=== PATIENT | female | born 1990 | race Caucasian/White ===

== ENCOUNTER 2023-08-31 16:39 | Emergency (ER) | payer OTHER, SELFPAY ==
[2023-08-31 16:43] VITALS: BP 138/71; PULSE 79; TEMP 36.9; O2SAT 99; BMI 22.3
--- NOTE | 2023-08-31 16:53 | ED.GENADUL1 ---
HPI HPI - General Adult General Chief complaint: Upper Respiratory Infection Stated complaint: WHITE SPOTS ON THROAT, TONGUE SWOLLEN Time Seen by Provider: 08/31/23 16:48 Source: patient Mode of arrival: walk-in Limitations: no limitations History of Present Illness HPI narrative: Patient is a 33-year-old female presents to the emergency department for 3-day history of mild sore throat associated with some soreness in the tongue and white spots in the back of the throat. She has had no fevers, vomiting. She is able to swallow food and fluids without difficulty. She reports painful swallowing. She has no other significant upper respiratory symptoms. No medications taken prior to arrival. She is unsure of a possibility of . Related Data Previous Rx's ?Medication ?Instructions ?Recorded cefdinir 300 mg capsule 300 mg PO BID 10 days #20 caps 08/31/23 ondansetron 4 mg disintegrating 4 mg PO Q6H PRN nausea and 08/31/23 tablet vomiting #12 tabs Allergies Allergy/AdvReac Type Severity Reaction Status Date / Time No Known Drug Allergies Allergy Verified 08/31/23 16:48 Opioid HPI Opioid Management Most Recent Opioid Data: No Data to Display Review of Systems ROS Constitutional Denies: fever or chills Ears, nose, mouth, and throat Reports: throat pain and difficulty swallowing; Denies: nasal congestion Cardiovascular Denies: chest pain Respiratory Denies: shortness of breath or cough Gastrointestinal Denies: nausea or vomiting Integumentary/Breast Denies: rash Hematologic/Lymphatic Denies: easy bruising or easy bleeding Exam Narrative Exam Narrative: Gen.: Awake, alert, in no distress Head: Normocephalic, atraumatic ENT: Moist mucous membranes, no tonsillar edema noted with exudate of the pharynx and pharyngeal erythema noted. Uvula midline. Clear speech. No trismus or drooling. Airway widely open and patent. No redness or swelling under the tongue. Bilateral TMs are bulging Respiratory: No respiratory distress, lungs clear bilaterally Cardio: Regular rate and rhythm Extremities: Moves extremities equally Psych: Normal mood and affect Neuro: No focal neuro deficit Skin: Warm, dry, intact Constitutional Vital Signs, click to edit/add: Last Vital Signs Temp 98.5 F 08/31/23 16:43 Pulse 79 08/31/23 16:43 Resp 18 08/31/23 16:43 BP 138/71 08/31/23 16:43 Pulse Ox 99 08/31/23 16:43 O2 Del Method Room Air 08/31/23 16:43 Course Vital Signs Vital signs: Vital Signs Temperature 98.5 F 08/31/23 16:43 Pulse Rate 79 08/31/23 16:43 Respiratory Rate 18 08/31/23 16:43 Blood Pressure 138/71 08/31/23 16:43 Pulse Oximetry 99 08/31/23 16:43 Oxygen Delivery Method Room Air 08/31/23 16:43 Temperature 98.5 F 08/31/23 16:43 Pulse Rate 79 08/31/23 16:43 Respiratory Rate 18 08/31/23 16:43 Blood Pressure 138/71 08/31/23 16:43 Pulse Oximetry 99 08/31/23 16:43 Oxygen Delivery Method Room Air 08/31/23 16:43 Medical Decision Making MDM Narrative Medical decision making narrative: test is positive, strep screen is negative. Patient treated with antibiotics as we will avoid steroids in her early . Follow-up with gynecology and primary care and return to the ER if symptoms change or worsen SUPERVISED APC VISIT, PHYSICIAN ATTESTATION: Based on the medical record the care appears appropriate. ? Medical Records Medical records reviewed: Yes I reviewed the patient's medical records Lab Data Lab results reviewed: Yes I reviewed the patient's lab results Labs: Lab Results 08/31/23 08/31/23 Range/Units 16:47 16:55 Urine HCG, Qual Positive A (NEGATIVE) Streptococcus Screen Negative Discharge Plan Discharge Stand Alone Forms: Portal Instructions Chief Complaint: Upper Respiratory Infection Clinical Impression: Pharyngitis, Patient Disposition: Home, Self-Care Time of Disposition Decision: 17:34 Condition: Good Prescriptions / Home Meds: New ondansetron 4 mg tablet,disintegrating 4 mg PO Q6H PRN (Reason: nausea and vomiting) Qty: 12 0RF cefdinir 300 mg capsule 300 mg PO BID 10 Days Qty: 20 0RF Print Language: Occitan Instructions: (ED), Pharyngitis (ED) Referrals: Physician,Non-Staff, MD [Primary Care Provider] - 1 week
[2023-08-31 17:12] LABS: HCG Qualitative Urine* POSITIVE (NEGATIVE); Internal Control Within Normal Limits
[2023-08-31 17:33] LABS: Internal Control Within Normal Limits; Strep A Antigen Screen Negative
== END 2023-08-31 17:41 | disposition home or self-care (01) ==
PROVIDERS: Physician Assistant; Emergency Provider Student in an Organized Health Care Education/Training Program
DX: O99.519 Diseases of the respiratory system complicating pregnancy, unspecified trimester (principal); J02.9 Acute pharyngitis, unspecified; Z3A.00 Weeks of gestation of pregnancy not specified
CPT/HCPCS: 84703; 87070; 87880; 99283

== ENCOUNTER 2023-10-01 13:48 | Outpatient (OUT) | payer OTHER, SELFPAY ==
--- NOTE | 2023-10-01 13:50 | US_ITS ---
The [address] [address] Patient Name: LIZZ ABBOTT MRN: [id number] date: 1990 Sex: F Assigned Patient Location: [facility] Current Patient Location: [facility] Accession/Order Number: [id number] Exam Date: 10/01/2023 13:50 Report Date: 10/01/2023 15:06 At the request of: SLIM DUPREE Procedure: US OB >= 14 weeks Fetus EXAMINATION: US OB >= 14 weeks Fetus HISTORY: MISSED MENSES COMPARISON: No relevant comparison available. FINDINGS: Heart Rate: 145 bpm Amniotic Fluid Volume: Subjectively normal Number: 1 Position: Variable Cervix: 3.7 cm in length and closed. BIOMETRY: BPD: 2.35 cm; ; 52.40 % HC: 9.48 cm; ; 66.50 % AC: 7.95 cm; ; 82.20 % FL: 1.24 cm; ; 47.50 % EFW: 90.61 g; 65.80 % FL/AC: 15.60 FL/BPD: 52.77 HC/AC: 1.19 GESTATIONAL AGE: Age by EDC: 13 weeks 4 days SHYLA by EDC: 04/03/2024 Age by US: 14 weeks 0 days SHYLA by US: 03/31/2024 US/US OB >= 14 weeks Fetus IMPRESSION: 1. Single live intrauterine with growth detailed above. Electronically authenticated by: AYESHA GONZALES Date: 10/01/2023 15:06
== END 2023-10-01 13:49 | disposition home or self-care (01) ==
LOC: NOMS 13:48
PROVIDERS: Visit Provider Obstetrics & Gynecology
DX: N92.6 Irregular menstruation, unspecified (principal); Z3A.14 14 weeks gestation of pregnancy
CPT/HCPCS: 76815

== ENCOUNTER 2023-10-26 19:20 | Outpatient (REF) | payer OTHER, SELFPAY ==
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
[2023-10-30 21:12] LABS: Age Gdln ACOG Testing Note (.); HPV Aptima Positive (Negative); HPV Genotype 16 Negative (Negative); HPV Genotype 18,45 Positive (Negative); IGP, Aptima HPV, rfx 16/18,45 Note (.)
== END 2023-10-26 19:21 | disposition home or self-care (01) ==
LOC: LAB 19:20
PROVIDERS: Visit Provider Obstetrics & Gynecology
DX: Z01.419 Encounter for gynecological examination (general) (routine) without abnormal findings (principal)
CPT/HCPCS: 87624; 88175

== ENCOUNTER 2023-11-16 10:20 | Outpatient (OUT) | payer OTHER, SELFPAY ==
--- NOTE | 2023-11-16 10:24 | US_ITS ---
[address] [address] Patient Name: LIZZ ABBOTT MRN: [id number] date: 1990 Sex: F Assigned Patient Location: [facility] Current Patient Location: [facility] Accession/Order Number: [id number] Exam Date: 11/16/2023 10:28 Report Date: 11/16/2023 11:22 At the request of: SLIM DUPREE Procedure: US OB cervical length EXAMINATION: US OB anatomy, US OB cervical length HISTORY: anatomic survey COMPARISON: Ultrasound OB 14 weeks 10/01/2023 TECHNIQUE: Transabdominal sonographic examination was performed for obstetrical and evaluation. FINDINGS: Number: 1 Heart Rate: 128 bpm H.B. /min Amniotic Fluid Volume: Subjectively normal Placental Location: Posterior with lower margin 2.6 cm from os. Cervix Length: 5.2 cm, closed. ANATOMY: Normal Structures -cerebellum, choroid plexus, cisterna magna, lateral cerebral ventricles, orbits, midline falx, hard palate, four-chamber heart, RVOT, LVOT, stomach, kidneys, bladder, umbilical cord insertion into abdomen, three-vessel cord, cervical spine, thoracic spine, lumbar spine, sacral spine, right upper extremity, left upper extremity, right lower extremity, left lower extremity. SUBOPTIMALLY SEEN: None ABNORMALITIES: None BIOMETRY: BPD: 4.74 cm; 20 weeks 2 days; 57.90 % HC: 17.99 cm; 20 weeks 3 days; 55.10 % AC: 16.79 cm; 21 weeks 6 days; 89.90 % FL: 3.05 cm; 19 weeks 3 days; 19.20 % EFW:397.56 g; 75.60 % FL/AC: 18.17 FL/BPD: 64.35 HC/AC: 1.07 GESTATIONAL AGE: Age by EDC: 20 weeks 1 day Age by current US: 20 weeks 4 days SHYLA by current US: 2024-03-31 SHYLA by EDC: 2024-04-03 US/US OB cervical length IMPRESSION: 1. Single live intrauterine with growth detailed above. 2. Posterior low-lying placenta. Electronically authenticated by: AYESHA GONZALES Date: 11/16/2023 11:22
--- NOTE | 2023-11-16 10:24 | US_ITS ---
[address] [address] Patient Name: LIZZ ABBOTT MRN: [id number] date: 1990 Sex: F Assigned Patient Location: [facility] Current Patient Location: [facility] Accession/Order Number: [id number] Exam Date: 11/16/2023 10:28 Report Date: 11/16/2023 11:22 At the request of: SLIM DUPREE Procedure: US OB anatomy EXAMINATION: US OB anatomy, US OB cervical length HISTORY: anatomic survey COMPARISON: Ultrasound OB 14 weeks 10/01/2023 TECHNIQUE: Transabdominal sonographic examination was performed for obstetrical and evaluation. FINDINGS: Number: 1 Heart Rate: 128 bpm H.B. /min Amniotic Fluid Volume: Subjectively normal Placental Location: Posterior with lower margin 2.6 cm from os. Cervix Length: 5.2 cm, closed. ANATOMY: Normal Structures -cerebellum, choroid plexus, cisterna magna, lateral cerebral ventricles, orbits, midline falx, hard palate, four-chamber heart, RVOT, LVOT, stomach, kidneys, bladder, umbilical cord insertion into abdomen, three-vessel cord, cervical spine, thoracic spine, lumbar spine, sacral spine, right upper extremity, left upper extremity, right lower extremity, left lower extremity. SUBOPTIMALLY SEEN: None ABNORMALITIES: None BIOMETRY: BPD: 4.74 cm; 20 weeks 2 days; 57.90 % HC: 17.99 cm; 20 weeks 3 days; 55.10 % AC: 16.79 cm; 21 weeks 6 days; 89.90 % FL: 3.05 cm; 19 weeks 3 days; 19.20 % EFW:397.56 g; 75.60 % FL/AC: 18.17 FL/BPD: 64.35 HC/AC: 1.07 GESTATIONAL AGE: Age by EDC: 20 weeks 1 day Age by current US: 20 weeks 4 days SHYLA by current US: 2024-03-31 SHYLA by EDC: 2024-04-03 US/US OB anatomy IMPRESSION: 1. Single live intrauterine with growth detailed above. 2. Posterior low-lying placenta. Electronically authenticated by: AYESHA GONZALES Date: 11/16/2023 11:22
--- OUTSIDE RECORDS SUMMARY | 2023-11-16 10:35 | XMS_ITS | CCD ---
Author Organization [facility] Care Team Providers Care Oncology Nurse Name Role Phone REQUEST, NONE LISTED Primary Care Unavailable VICTORIANO GR Consulting Unavailable KARAALIYAHKILEANA Admitting Unavailable KARAALIYAHKILEANA Attending Unavailable ILEANA LOVE Consulting Unavailable VINAY EMMANUEL Consulting Unavailable ADAM HARRIS Consulting Unavailable AGUBOSIDAVINA Duong Consulting Unavailable SLIM DUPREE Attending Unavailable Problems Problem Classification Problem Date Documented [...] ABO Rh Typing A Rh Positive Normal [facility] Comment on above: Performed By: #### A [facility] #### [facility] [address], [place] [address] Bartolo Escobedo CARDIAC JUDITH ADMITon 019 CK [Catalytic activity/Vol] 38 U/L Normal 30-135 [facility] Comment on above: Performed By: #### C MP, CMADM, PREGQNT #### [facility] [address] [place] [id number] Bartolo Fanny CK.MB [Mass/Vol] ng/mL Normal <=2.37 [facility] Comment on above: Performed By: #### C MP, CMADM, PREGQNT #### [facility] [address] [place], [place] [id number] Bartolo Fortuneen INR Coag (Bld) [Relative time] SEE BELOW Normal [facility] Comment on above: Result Comment: <0.0 34 ng/ml NEGATIVE 0.034-0.119 INDETERMINATE 0.120 AMI CUT OFF Performed By: #### C MP, CMADM, PREGQNT #### [facility] [address] [place] [address] Bartolo Fanny MADELINE 16.0 ng/mL Normal <=61.5 [facility] Comment on above: Performed By: #### C MP, CMADM, PREGQNT #### [facility] [address] [place] [address] Bartolo Fanny TROP <0.017 Normal <=0.034 [facility] Comment on above: Performed By: #### C MP, CMADM, PREGQNT #### [facility] [address] [place] [address] Bartolo Fanny CBC AUTO DIFFon 11-01-2018 Basophils (Bld) [#/Vol] 0.0 103/ul Normal 0.0-0.1 [facility] Comment on above: Performed By: #### C BC #### [facility] [address] [place] [address] Bartolo Fanny Basophils/100 WBC (Bld) 0.2 % Normal 0.2-2.0 [facility] Comment on above: Performed By: #### C BC #### [facility] [address] [place] [address] Bartolo Fanny Eosinophils (Bld) [#/Vol] 0.0 103/ul Normal 0.0-0.7 [facility] Comment on above: Performed By: #### C BC #### [facility] [address] [place], [place] [id number] Bartolo Fanny Eosinophils/100 WBC (Bld) 0.2 % Critically low 0.9-7.0 [facility] Comment on above: Performed By: #### C BC #### [facility] [address] [place], [place] [id number] Bartolo Fanny Erythrocyte distribution width (RBC) [Ratio] 12.7 % Normal 11.0-15.0 [facility] Comment on above: Performed By: #### C BC #### [facility] [address] [place], [place] [id number] Bartolo Fanny Hematocrit (Bld) [Volume fraction] 33.1 % Critically low 36.0-48.0 [facility] Comment on above: Performed By: #### C BC #### [facility] [address] [place], [place] [id number] Bartolo Fanny Hemoglobin (Bld) [Mass/Vol] 11.3 g/dL Critically low 12.0-16.0 [facility] Comment on above: Performed By: #### C BC #### [facility] [address] [place], [place] [address] Bartolo Fanny IG # 0.03 10e3/ul Normal 0.00-0.03 [facility] Comment on above: Performed By: #### C BC #### [facility] [address] [place], [place] [id number] Bartolo Fanny IG % 0.2 % Normal 0.0-0.5 [facility] Comment on above: Performed By: #### C BC #### [facility] [address] [place], [place] [phone] Bartolo Fanny Lymphocytes (Bld) [#/Vol] 1.8 103/ul Normal 1.2-3.8 [facility] Comment on above: Performed By: #### C BC #### [facility] [address] [place], [place] [address] Bartolo Fanny Lymphocytes/100 WBC (Bld) 13.9 % Critically low 20.5-60.0 [facility] Comment on above: Performed By: #### C BC #### [facility] [address] [place], [place] [address] Bartolo Escobedo MANUAL DIFF REQ NO Normal The [facility] Comment on above: Performed By: #### C BC #### [facility] [address] [place], [place] [address] Bartolo Fanny MCH (RBC) [Entitic mass] 29.7 pg Normal 26.7-34.0 [facility] Comment on above: Performed By: #### C BC #### [facility] [address] [id number] Bartolotanvir Escobedo MCHC (RBC) [Mass/Vol] 34.1 g/dL Normal 29.9-35.2 [facility] Comment on above: Performed By: #### C BC #### [facility] [address] [address] Bartolotanvir Fortuneen MCV (RBC) [Entitic vol] 87.1 fL Normal 81.0-99.0 [facility] Comment on above: Performed By: #### C BC #### [facility] [address] [address] [place]loo Fanny Monocytes (Bld) [#/Vol] 0.4 103/ul Normal 0.3-0.8 [facility] Comment on above: Performed By: #### C BC #### [facility] [address] [address] Bartolo Fanny Monocytes/100 WBC (Bld) 3.1 % Normal 1.7-12.0 [facility] Comment on above: Performed By: #### C BC #### [facility] [address] [address] Bartolo Fanny Neutrophils (Bld) [#/Vol] 10.8 103/ul Critically high 1.4-6.5 [facility] Comment on above: Performed By: #### C BC #### [facility] [address] [address] Bartolo Fanny Neutrophils/100 WBC (Bld) 82.4 % Critically high 43.0-75.0 [facility] Comment on above: Performed By: #### C BC #### [facility] [address] [place], [place] [address] Bartolo Escobedo Platelet mean volume (Bld) [Entitic vol] 10.4 fL Normal 9.5-13.5 [facility] Comment on above: Performed By: #### C BC #### [facility] [address] [place], [place] [address] Bartolo Escobedo Platelets (Bld) [#/Vol] 255 103/ul Normal 150-450 [facility] Comment on above: Performed By: #### C BC #### [facility] [address] [place], [place] [address] Bartolotanvir Escobedo RBC (Bld) [#/Vol] 3.80 106/ul Critically low 4.20-5.40 [facility] Comment on above: Performed By: #### C BC #### [facility] [address] [place] [address] Bartolotanvir Escobedo WBC (Bld) [#/Vol] 13.1 103/ul Critically high 4.0-11.0 [facility] Comment on above: Performed By: #### C BC #### [facility] [address] [place] [address] C-SPINE WO CONon 11-02-19 CT C-SPINE WO CON Patient: LIZZ ABBOTT Exam Date: 11/01/2018 : 1990 Gender:F Ordering : RASHEED IQBAL Admission #: [id number] Family : DR VICTORIANO GR D.O. Order #: [id number] CLICK HERE TO VIEW EXAM RADIOLOGY REPORT [...] M.D. on 11/01/2018 at 15:02 Normal [facility] CT HEAD WO CONon 11-01-2018 CT HEAD WO CON Patient: LIZZ ABBOTT Exam Date: 11/01/2018 : 1990 Gender:F Ordering : RASHEED IQBAL Admission #: [id number] Family : DR VICTORIANO GR D.O. Order #: [id number] CLICK HERE TO VIEW EXAM RADIOLOGY REPORT [...] M.D. on 11/01/2018 at 14:59 Normal [facility] PREG QUANT HCGon 11-01-2018 HCG QUANT 1500.00 mIU/mL Normal The [facility] [place] Comment on above: Performed By: #### C ROBERTA, CMADM, PREGQNT #### [facility] [address] [place] [address] Bartolo Escobedo HCG RANGE SEE BELOW Normal [facility] Comment on above: Result Comment: 5-50 0-1 WEEK 40-300 1-2 WEEKS 100-1,000 2-3 WEEKS 500-6,000 3-4 WEEKS 5,000-200,000 1-2 MONTHS 10,000-100,000 2-3 MONTHS 3,000-50,000 2ND TRIMESTER 1,000-50,000 3RD TRIMESTER Performed By: #### C ROBERTA, CMADM, PREGQNT #### [facility] [address] [id number] Bartolo Fortuneen PROF 14(COMP METB)on 019 Albumin [Mass/Vol] 3.5 g/dL Normal 3.5-5.0 [facility] Comment on above: Performed By: #### C MP, CMADM, PREGQNT #### [facility] [address] [address] Bartolo Fanny Albumin/Globulin [Mass ratio] 0.9 {ratio} Normal [facility] Comment on above: Performed By: #### C MP, CMADM, PREGQNT #### [facility] [address] [address] Bartolo Fanny ALP [Catalytic activity/Vol] 43 U/L Normal 38-126 [facility] Comment on above: Performed By: #### C MP, CMADM, PREGQNT #### [facility] [address] [place] [address] Bartolo Fanny ALT [Catalytic activity/Vol] 12 U/L Normal 9-52 [facility] Comment on above: Performed By: #### C MP, CMADM, PREGQNT #### [facility] [address] [address] Bartolo Fanny Anion gap [Moles/Vol] 13.8 mmol/L Normal [facility] Comment on above: Performed By: #### C MP, CMADM, PREGQNT #### [facility] [address] [address] Bartolo Fanny AST [Catalytic activity/Vol] 12 U/L Critically low 14-36 [facility] Comment on above: Performed By: #### C MP, CMADM, PREGQNT #### [facility] [address] [address] Bartolo Fanny Bilirubin Ql (U) 0.7 mg/dL Normal 0.2-1.3 [facility] Comment on above: Performed By: #### C MP, CMADM, PREGQNT #### [facility] [address] [address] Bartolo Fanny Calcium [Mass/Vol] 8.7 mg/dL Normal 8.4-10.2 [facility] Comment on above: Performed By: #### C MP, CMADM, PREGQNT #### [facility] [address] [place] [address] Bartolo Fanny Chloride [Moles/Vol] 104 mmol/L Normal 98-107 [facility] Comment on above: Performed By: #### C MP, CMADM, PREGQNT #### [facility] [address] [place] [address] Bartolo Fanny CO2 [Moles/Vol] 22.7 mmol/L Normal 22.0-30.0 [facility] Comment on above: Performed By: #### C MP, CMADM, PREGQNT #### [facility] [address] [place] [address] Bartolo Fanny Creatinine [Mass/Vol] 0.67 mg/dL Normal 0.52-1.04 [facility] Comment on above: Performed By: #### C MP, CMADM, PREGQNT #### [facility] [address] [place] [address] Bartolo Fanny EGFR-AF SIERRA LEONEAN >60 Normal >=60 [facility] Comment on above: Performed By: #### C MP, CMADM, PREGQNT #### [facility] [address] [place] [address] Bartolo Fanny EGFR-NON AF SIERRA LEONEAN >60 Normal >=60 [facility] Comment on above: Performed By: #### C MP, CMADM, PREGQNT #### [facility] [address] [place] [address] Bartolo Fanny Globulin (S) [Mass/Vol] 4.0 g/dL Normal [facility] Comment on above: Performed By: #### C MP, CMADM, PREGQNT #### [facility] [address] [place] [address] Bartolo Fanny Glucose [Mass/Vol] 113 mg/dL Critically high 74-106 [facility] Comment on above: Performed By: #### C MP, CMADM, PREGQNT #### [facility] [address] [place] [address] Bartolo Fanny Potassium [Moles/Vol] 3.5 mmol/L Normal 3.4-5.0 [facility] Comment on above: Performed By: #### C JANAY GRANADOS, PREGQNT #### [facility] [address] [place] [address] Bartolo Fanny Protein [Mass/Vol] 7.5 g/dL Normal 6.1-8.2 [facility] Comment on above: Performed By: #### C ROBERTA, CMADM, PREGQNT #### [facility] [address] [place] [address] Bartolo Fanny Sodium [Moles/Vol] 137 mmol/L Normal 137-145 [facility] Comment on above: Performed By: #### C ROBERTA, CMADM, PREGQNT #### [facility] [address] [place] [address] Bartolo Fanny Urea nitrogen [Mass/Vol] 10.0 mg/dL Normal 7.0-17.0 [facility] Comment on above: Performed By: #### C MP, CMADM, PREGQNT #### [facility] [address] [address] Bartolo Fanny Urea nitrogen/Creatinine [Mass ratio] 14.9 mg/mg Normal [facility] Comment on above: Performed By: #### C ROBERTA, CMADM, PREGQNT #### [facility] [address] [address] Bartolo Fanny PROTIMEon 11-01-2018 INR Coag (PPP) [Relative time] 1.02 {INR} Normal [facility] Comment on above: Performed By: #### P T, PTT #### [facility] [address] [phone] Bartolo Fanny PT Coag (PPP) [Time] PLEASE NOTE: NORMAL RANGE CHANGE 11-03-2013 DUE TO REAGENT LOT CHANGE Normal [facility] Comment on above: Performed By: #### P T, PTT #### [facility] [address] [id number] Bartolo Fanny PT Coag (PPP) [Time] 10.6 s Normal 9.0-11.6 [facility] Comment on above: Performed By: #### P T, PTT #### [facility] [address] [place], [place] [address] Bartolo Escobedo PT Coag (PPP) [Time] SEE BELOW Normal [facility] Comment on above: Result Comment: AKIL RED INR: 2.0 - 3.0 CONDITIONS NOT LISTED BELOW 2.5 - 3.5 FOR PROSTHETIC HEART VALVE REPLACEMENT 2.5 - 3.5 RECURRENT THROMBOSIS Performed By: #### P T, PTT #### [facility] [address] [place], [place] [address] Bartolo Escobedo PTTon 11-01-2018 aPTT Coag (Bld) [Time] PLEASE NOTE: NORMAL RANGE CHANGE 01-10-2015 DUE TO REAGENT LOT CHANGE Normal [facility] Comment on above: Performed By: #### P T, PTT #### [facility] [address] [place], [place] [address] Bartolo Escobedo aPTT Coag (Bld) [Time] 21.6 s Critically low 22.3-36.2 [facility] Comment on above: Performed By: #### P T, PTT #### [facility] [address] [place], [place] [address] Bartolo Fanny TYPE AND SCREENon 11-01-2018 TYPE AND SCREEN Negative Normal [facility] Comment on above: Performed By: #### P T, PTT #### [facility] [address] [place], [place] [address] Bartolo Fanny US PREG <14 WKSon 11-01-2018 US PREG <14 WKS Patient: LIZZ ABBOTT Exam Date: 11/01/2018 : 1990 Gender:F Ordering : RASHEED IQBAL Admission #: [id number] Family : DR VICTORIANO GR D.O. Order #: [id number] CLICK HERE TO VIEW EXAM RADIOLOGY REPORT PROCEDURE: ULTRASOUND < 14 WEEKS COMPARISON: None. INDICATIONS: Bleeding from vagina TECHNIQUE: Transabdominal sonographic examination for obstetrical and evaluation. FINDINGS: GESTATIONAL SAC: POLE: Absent. YOLK SAC: Absent. CARDIAC ACTIVITY: Absent. UTERUS: Thickened hyperechoic endometrium. Irregular fluid collection within the cervix. OVARIES: Right: Normal. Left: Normal. CUL-DE-SAC: Normal. OTHER: None. AGE BY LMP: 12 weeks, 1 day SYHLA BY LMP: May 15, 2019 CONCLUSION: 1. Thickened endometrium with irregular fluid collection within the cervix, likely representing spontaneous . Dictated by: Vinay Emmanuel M.D. on 11/01/2018 at 15:42 Approved by: Vinay Emmanuel M.D. on 11/01/2018 at 15:43 Normal [facility] Encounters Encounter Date Encounter Type Care Provider Facility Start: 10-26-2023 End: 10-26-2023 ambulatory SLIM LEIA Not Available Start: 10-01-2023 End: 10-01-2023 ambulatory SLIM LEIA Not Available Start: 11-01-2018 End: 11-01-2018 Patient encounter procedure NONE LISTED REQUEST Facility: Payers Date Payer Category Payer Unknown [id number] 1990 Unknown [id number] 1990 Unknown [id number] 1990 Unknown [id number] 1957 Self-pay [id number] Summary Purpose Family History No Family History Records FoundNo Family History Records Found Advance Directives No Advanced Directives Records FoundNo Advanced Directives Records Found Additional Source Comments INFORMATION SOURCE (unrecogn ized section and content) DATE CREATED AUTHOR 11/15/2018 [facility] DATE CREATED AUTHOR AUTHOR'S ORGANIZ ATION 10/27/2023 [facility] EPIC FOR RECORDS PERTAINING TO PATIENTS WHO ARE [...] BE BASED ON THE PRIMARY CLINICAL RECORDS. [employer] [facility]. provides no warranty or guarantee of the accuracy or completeness of information in this document.
== END 2023-11-16 10:21 | disposition home or self-care (01) ==
LOC: NOMS 10:21
PROVIDERS: Visit Provider Obstetrics & Gynecology
DX: O44.42 Low lying placenta NOS or without hemorrhage, second trimester (principal); Z36.89 Encounter for other specified antenatal screening; Z3A.20 20 weeks gestation of pregnancy
CPT/HCPCS: 76805; 76817

== ENCOUNTER 2023-11-23 12:53 | Outpatient (OUT) | payer OTHER, SELFPAY ==
--- OUTSIDE RECORDS SUMMARY | 2023-11-23 12:58 | XMS_ITS | CCD ---
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 Role Phone REQUEST, NONE LISTED Primary [...] ABO Rh Typing A Rh Positive Normal [facility] Comment on above: Performed By: #### A [facility] #### [facility] [address], [place] [address] Bartolo Escobedo CARDIAC JUDITH ADMITon 019 CK [Catalytic activity/Vol] 38 U/L Normal 30-135 [facility] Comment on above: Performed By: #### C MP, CMADM, PREGQNT #### [facility] [address] [place] [id number] Bartolo Fanny CK.MB [Mass/Vol] ng/mL Normal <=2.37 [facility] Comment on above: Performed By: #### C MP, CMADM, PREGQNT #### [facility] [address] [place], [place] [address] Bartolo Fortuneen INR Coag (Bld) [Relative time] SEE BELOW Normal [facility] Comment on above: Result Comment: <0.0 34 ng/ml NEGATIVE 0.034-0.119 INDETERMINATE 0.120 AMI CUT OFF Performed By: #### C MP, CMADM, PREGQNT #### [facility] [address] [place] [address] Bartolo Fanny MADELINE 16.0 ng/mL Normal <=61.5 [facility] Comment on above: Performed By: #### C MP, CMADM, PREGQNT #### [facility] [address] [place] [address] Bartolo Fanny TROP <0.017 Normal <=0.034 [facility] Comment on above: Performed By: #### C MP, CMADM, PREGQNT #### [facility] [address] [place] [address] Bartolo Fanny CBC AUTO DIFFon 11-01-2018 Basophils (Bld) [#/Vol] 0.0 103/ul Normal 0.0-0.1 [facility] Comment on above: Performed By: #### C BC #### [facility] [address] [place] [address] Bartolo Fanny Basophils/100 WBC (Bld) 0.2 % Normal 0.2-2.0 [facility] Comment on above: Performed By: #### C BC #### [facility] [address] [place] [address] Bartolo Fanny Eosinophils (Bld) [#/Vol] 0.0 103/ul Normal 0.0-0.7 [facility] Comment on above: Performed By: #### C BC #### [facility] [address] [place], [place] [address] Bartolo Fanny Eosinophils/100 WBC (Bld) 0.2 % Critically low 0.9-7.0 [facility] Comment on above: Performed By: #### C BC #### [facility] [address] [place], [place] [address] Bartolo Fanny Erythrocyte distribution width (RBC) [Ratio] 12.7 % Normal 11.0-15.0 [facility] Comment on above: Performed By: #### C BC #### [facility] [address] [place], [place] [address] Bartolo Fanny Hematocrit (Bld) [Volume fraction] 33.1 % Critically low 36.0-48.0 [facility] Comment on above: Performed By: #### C BC #### [facility] [address] [place], [place] [address] Bratolo Fanny Hemoglobin (Bld) [Mass/Vol] 11.3 g/dL Critically low 12.0-16.0 [facility] Comment on above: Performed By: #### C BC #### [facility] [address] [place], [place] [address] Bartolo Fanny IG # 0.03 10e3/ul Normal 0.00-0.03 [facility] Comment on above: Performed By: #### C BC #### [facility] [address] [place], [place] [address] Bartolo Fanny IG % 0.2 % Normal 0.0-0.5 [facility] Comment on above: Performed By: #### C BC #### [facility] [address] [place], [place] [address] Bartolo Fanny Lymphocytes (Bld) [#/Vol] 1.8 103/ul Normal 1.2-3.8 [facility] Comment on above: Performed By: #### C BC #### [facility] [address] [place], [place] [address] Bartolo Fanny Lymphocytes/100 WBC (Bld) 13.9 % Critically low 20.5-60.0 [facility] Comment on above: Performed By: #### C BC #### [facility] [address] [place], [place] [address] Bartolo Escoebdo MANUAL DIFF REQ NO Normal [facility] Comment on above: Performed By: #### C BC #### [facility] [address] [place], [place] [address] Bratolo Fanny MCH (RBC) [Entitic mass] 29.7 pg Normal 26.7-34.0 [facility] Comment on above: Performed By: #### C BC #### [facility] [address] [id number] Bartolotanvir Escobedo MCHC (RBC) [Mass/Vol] 34.1 g/dL Normal 29.9-35.2 [facility] Comment on above: Performed By: #### C BC #### [facility] [address] [id number] Bartolotanvir Fortuneen MCV (RBC) [Entitic vol] 87.1 fL Normal 81.0-99.0 [facility] Comment on above: Performed By: #### C BC #### [facility] [address] [id number] Bartolo Fanny Monocytes (Bld) [#/Vol] 0.4 103/ul Normal 0.3-0.8 [facility] Comment on above: Performed By: #### C BC #### [facility] [address] [id number] Bartolo Fanny Monocytes/100 WBC (Bld) 3.1 % Normal 1.7-12.0 [facility] Comment on above: Performed By: #### C BC #### [facility] [address] [id number] Bartolo Fanny Neutrophils (Bld) [#/Vol] 10.8 103/ul Critically high 1.4-6.5 [facility] Comment on above: Performed By: #### C BC #### [facility] [address] [id number] Bartolo Fanny Neutrophils/100 WBC (Bld) 82.4 % Critically high 43.0-75.0 [facility] Comment on above: Performed By: #### C BC #### [facility] [address] [place], [place] [address] Bartolo Escobedo Platelet mean volume (Bld) [Entitic vol] 10.4 fL Normal 9.5-13.5 [facility] Comment on above: Performed By: #### C BC #### [facility] [address] [place], [place] [address] Bartolo Escobedo Platelets (Bld) [#/Vol] 255 103/ul Normal 150-450 [facility] Comment on above: Performed By: #### C BC #### [facility] [address] [place], [place] [address] Bartolotanvir Escobedo RBC (Bld) [#/Vol] 3.80 106/ul Critically low 4.20-5.40 [facility] Comment on above: Performed By: #### C BC #### [facility] [address] [place] [address] Bartolotanvir Escobedo WBC (Bld) [#/Vol] 13.1 103/ul Critically high 4.0-11.0 [facility] Comment on above: Performed By: #### C BC #### [facility] [address] [place] [address] [address] C-SPINE WO CONon 11-02-19 CT C-SPINE WO CON Patient: LIZZ ABBOTT Exam Date: 11/01/2018 : 1990 Gender:F Ordering : RASHEED IQBAL Admission #: [id number] Family : DR VICTORIANO GR D.O. Order #: [id number] CLICK HERE TO VIEW EXAM RADIOLOGY REPORT [...] M.D. on 11/01/2018 at 15:02 Normal [facility] CT HEAD WO CONon 11-01-2018 CT HEAD WO CON Patient: LIZZ ABBOTT Exam Date: 11/01/2018 : 1990 Gender:F Ordering : RASHEED IQBAL Admission #: [id number] Family : DR VICTORIANO GR D.O. Order #: [id number] CLICK HERE TO VIEW EXAM RADIOLOGY REPORT [...] M.D. on 11/01/2018 at 14:59 Normal [facility] PREG QUANT HCGon 11-01-2018 HCG QUANT 1500.00 mIU/mL Normal [facility] Comment on above: Performed By: #### C ROBERTA, CMADM, PREGQNT #### [facility] [address] [place] [address] Bartolo Escobedo HCG RANGE SEE BELOW Normal [facility] Comment on above: Result Comment: 5-50 0-1 WEEK 40-300 1-2 WEEKS 100-1,000 2-3 WEEKS 500-6,000 3-4 WEEKS 5,000-200,000 1-2 MONTHS 10,000-100,000 2-3 MONTHS 3,000-50,000 2ND TRIMESTER 1,000-50,000 3RD TRIMESTER Performed By: #### C ROBERTA, CMADM, PREGQNT #### [facility] [address] [id number] Bartolo Fortuneen PROF 14(COMP METB)on 019 Albumin [Mass/Vol] 3.5 g/dL Normal 3.5-5.0 [facility] Comment on above: Performed By: #### C MP, CMADM, PREGQNT #### [facility] [address] [id number] Bartolo Fanny Albumin/Globulin [Mass ratio] 0.9 {ratio} Normal [facility] Comment on above: Performed By: #### C MP, CMADM, PREGQNT #### [facility] [address] [phone] Bartolo Fanny ALP [Catalytic activity/Vol] 43 U/L Normal 38-126 [facility] Comment on above: Performed By: #### C MP, CMADM, PREGQNT #### [facility] [address] [address] Bartolo Fanny ALT [Catalytic activity/Vol] 12 U/L Normal 9-52 [facility] Comment on above: Performed By: #### C MP, CMADM, PREGQNT #### [facility] [address] [id number] Bartolo Fnany Anion gap [Moles/Vol] 13.8 mmol/L Normal [facility] Comment on above: Performed By: #### C MP, CMADM, PREGQNT #### [facility] [address] [phone] Bartolo Fanny AST [Catalytic activity/Vol] 12 U/L Critically low 14-36 [facility] Comment on above: Performed By: #### C MP, CMADM, PREGQNT #### [facility] [address] [id number] Bartolo Fanny Bilirubin Ql (U) 0.7 mg/dL Normal 0.2-1.3 [facility] Comment on above: Performed By: #### C MP, CMADM, PREGQNT #### [facility] [address] [id number] Bartolo Fanny Calcium [Mass/Vol] 8.7 mg/dL Normal 8.4-10.2 [facility] Comment on above: Performed By: #### C MP, CMADM, PREGQNT #### [facility] [address] [address] Bartolo Fanny Chloride [Moles/Vol] 104 mmol/L Normal 98-107 [facility] Comment on above: Performed By: #### C MP, CMADM, PREGQNT #### [facility] [address] [place] [address] Bartolo Fanny CO2 [Moles/Vol] 22.7 mmol/L Normal 22.0-30.0 [facility] Comment on above: Performed By: #### C MP, CMADM, PREGQNT #### [facility] [address] [place] [address] Bartolo Fanny Creatinine [Mass/Vol] 0.67 mg/dL Normal 0.52-1.04 [facility] Comment on above: Performed By: #### C MP, CMADM, PREGQNT #### [facility] [address] [place] [address] Bartolo Fanny EGFR-AF ETHIOPIAN >60 Normal >=60 [facility] Comment on above: Performed By: #### C MP, CMADM, PREGQNT #### [facility] [address] [place] [address] Bartolo Fanny EGFR-NON AF ETHIOPIAN >60 Normal >=60 [facility] Comment on above: Performed By: #### C MP, CMADM, PREGQNT #### [facility] [address] [place] [address] Bartolo Fanny Globulin (S) [Mass/Vol] 4.0 g/dL Normal [facility] Comment on above: Performed By: #### C MP, CMADM, PREGQNT #### [facility] [address] [place] [address] Bartolo Fanny Glucose [Mass/Vol] 113 mg/dL Critically high 74-106 T [facility] Comment on above: Performed By: #### C MP, CMADM, PREGQNT #### [facility] [address] [place] [address] Bartolo Fanny Potassium [Moles/Vol] 3.5 mmol/L Normal 3.4-5.0 [facility] Comment on above: Performed By: #### C JANAY GRANADOS, PREGQNT #### [facility] [address] [address] Bartolo Fanny Protein [Mass/Vol] 7.5 g/dL Normal 6.1-8.2 [facility] Comment on above: Performed By: #### C ROBERTA, CMADM, PREGQNT #### [facility] [address] [address] Bartolo Fanny Sodium [Moles/Vol] 137 mmol/L Normal 137-145 [facility] Comment on above: Performed By: #### C ROBERTA, CMADM, PREGQNT #### [facility] [address] [place] [address] Bartolo Fanny Urea nitrogen [Mass/Vol] 10.0 mg/dL Normal 7.0-17.0 [facility] Comment on above: Performed By: #### C MP, CMADM, PREGQNT #### [facility] [address] [id number] Bartolo Fanny Urea nitrogen/Creatinine [Mass ratio] 14.9 mg/mg Normal [facility] Comment on above: Performed By: #### C ROBERTA, CMADM, PREGQNT #### [facility] [address] [id number] Bartolo Fanny PROTIMEon 11-01-2018 INR Coag (PPP) [Relative time] 1.02 {INR} Normal [facility] Comment on above: Performed By: #### P T, PTT #### [facility] [address] [id number] Bartolo Fanny PT Coag (PPP) [Time] PLEASE NOTE: NORMAL RANGE CHANGE 11-03-2013 DUE TO REAGENT LOT CHANGE Normal [facility] Comment on above: Performed By: #### P T, PTT #### [facility] [address] [id number] Bartolo Fanny PT Coag (PPP) [Time] 10.6 s Normal 9.0-11.6 [facility] Comment on above: Performed By: #### P T, PTT #### [facility] [address] [place], [place] [address] Bartolo Escobedo PT Coag (PPP) [Time] SEE BELOW Normal [facility] Comment on above: Result Comment: AKIL RED INR: 2.0 - 3.0 CONDITIONS NOT LISTED BELOW 2.5 - 3.5 FOR PROSTHETIC HEART VALVE REPLACEMENT 2.5 - 3.5 RECURRENT THROMBOSIS Performed By: #### P T, PTT #### [facility] [address] [place], [place] [address] Bartolo Escobedo PTTon 11-01-2018 aPTT Coag (Bld) [Time] PLEASE NOTE: NORMAL RANGE CHANGE 01-10-2015 DUE TO REAGENT LOT CHANGE Normal [facility] Comment on above: Performed By: #### P T, PTT #### [facility] [address] [place], [place] [address] Bartolo Escobedo aPTT Coag (Bld) [Time] 21.6 s Critically low 22.3-36.2 [facility] Comment on above: Performed By: #### P T, PTT #### [facility] [address] [place], [place] [address] Bartolo Fanny TYPE AND SCREENon 11-01-2018 TYPE AND SCREEN Negative Normal [facility] Comment on above: Performed By: #### P T, PTT #### [facility] [address] [place], [place] [address] Bartolo Fanny US PREG <14 WKSon 11-01-2018 US PREG <14 WKS Patient: LIZZ ABBOTT Exam Date: 11/01/2018 : 1990 Gender:F Ordering : RASHEED IQBAL Admission #: [id number] Family : DR VICTORIANO GR D.O. Order #: [id number] CLICK HERE TO VIEW EXAM RADIOLOGY REPORT [...] Emmanuel M.D. on 11/01/2018 at 15:43 Normal [facility] Encounters Encounter Date Encounter Type Care Provider Facility Start: 10-26-2023 End: 10-26-2023 ambulatory SLIM LEIA Not Available Start: 10-01-2023 End: 10-01-2023 ambulatory SLIM LEIA Not Available Start: 11-01-2018 End: 11-01-2018 Patient encounter procedure NONE LISTED REQUEST Facility: Payers Date Payer Category Payer Unknown [id number] 1990 Unknown [id number] 1990 Unknown [id number] 1990 Unknown [id number] 1957 Self-pay [id number] Summary Purpose Family History No Family History Records FoundNo Family History Records Found Advance Directives No Advanced Directives Records FoundNo Advanced Directives Records Found Additional Source Comments INFORMATION SOURCE (unrecogn ized section and content) DATE CREATED AUTHOR 11/15/2018 [facility] DATE CREATED AUTHOR AUTHOR'S ORGANIZ ATION 10/27/2023 [facility] EPIC FOR RECORDS PERTAINING TO [...] BE BASED ON THE PRIMARY CLINICAL RECORDS. [facility]. provides no warranty or guarantee of the accuracy or completeness of information in this document.
[2023-11-23 13:19] LABS: Basophils Percent Auto 0.3 % (0.2-2.0); Eosinophils Absolute Auto 0.1 10^3/uL (0.0-0.7); Eosinophils Percent Auto 0.6 % (0.9-7.0); Hematocrit 33.7 % (36.0-48.0); Hemoglobin 11.5 g/dL (12.0-16.0); Immature Granulocytes Abs Auto 0.05 10^3/uL (0.00-0.03); Immature Granulocytes Pct Auto 0.5 % (0.0-0.5); Lymphocytes Absolute Auto 2.2 10^3/uL (1.2-3.8); Mean Corpuscular HGB Conc 34.1 g/dL (29.9-35.2); Mean Corpuscular Hemoglobin 30.9 pg (26.7-34.0); Mean Corpuscular Volume 90.6 fL (81.0-99.0); Mean Platelet Volume 9.4 fL (9.5-13.5); Monocytes Absolute Auto 0.5 10^3/uL (0.3-0.8); Monocytes Percent Auto 5.3 % (1.7-12.0); Neutrophils Absolute Auto 7.2 10^3/uL (1.4-6.5); Neutrophils Percent Auto 71.3 % (43.0-75.0); Platelet Count 255 10^3/uL (150-450); Red Blood Count 3.72 10^6/uL (4.20-5.40); Red Cell Distribution Width 13.6 % (11.0-15.0); White Blood Count 10.1 10^3/uL (4.0-11.0)
[2023-11-23 14:01] LABS: Estimated Average Glucose 82 mg/dL; Glycohemoglobin A1C 4.5 % (4.5-6.2)
[2023-11-24 06:10] LABS: HBsAg Screen Negative (Negative); HCV Ab Non Reactive (Non Reactive); HIV Ab/p24 Ag Screen Non Reactive (Non Reactive)
[2023-11-24 07:11] LABS: Rubella Antibodies, IgG 2.32 index (Immune >0.99)
[2023-11-24 12:13] LABS: Rapid Plasma Reagin, Quant Non Reactive titer (NonRea<1:1)
[2023-11-25 00:07] LABS: AFP Value 53.2 ng/mL (.); Gest. Age on Collection Date 21.1 weeks (.); Insulin Dep Diabetes No (.); Maternal Age At EDD 31.9 yr (.); OSBR Risk 1 IN 10000 (.); Results Report (.)
== END 2023-11-23 12:54 | disposition home or self-care (01) ==
LOC: LAB 12:55
PROVIDERS: Visit Provider Obstetrics & Gynecology
DX: Z34.92 Encounter for supervision of normal pregnancy, unspecified, second trimester (principal); N92.6 Irregular menstruation, unspecified
CPT/HCPCS: 36415; 82105; 83036; 85025; 86592; 86762; 86803; 86850; 86900; 86901; 87086; 87340; 87389

== ENCOUNTER 2023-12-17 09:34 | Outpatient (OUT) | payer OTHER, SELFPAY ==
--- NOTE | 2023-12-17 09:36 | US_ITS ---
The [address] [address] Patient Name: LIZZ ABBOTT MRN: [id number] date: 1990 Sex: F Assigned Patient Location: US Current Patient Location: Accession/Order Number: [id number] Exam Date: 12/17/2023 09:40 Report Date: 12/17/2023 10:20 At the request of: SLIM DUPREE Procedure: US OB placenta EXAM: US OB placenta, US OB transvaginal HISTORY: Low Lying Placenta COMPARISON: None. TECHNIQUE: Transabdominal and transvaginal FINDINGS: Morales intrauterine gestation position: Cephalic presentation, longitudinal lie Placenta: Posterior. No intraplacental or retroplacental echogenic abnormality. Grade 0. The placental edge is 1.9 cm from the internal os. The technologist notes a possible contraction limiting this measurement. Heart rate: 129 beats minute Cervix: Closed, 4.6 cm. US/US OB placenta IMPRESSION: Low lying placenta Closed cervix measuring 4.6 cm in length Electronically authenticated by: CARMEL SIMONS Date: 12/17/2023 10:20
--- NOTE | 2023-12-17 09:41 | US_ITS ---
The [address] [address] Patient Name: LIZZ ABBOTT MRN: [id number] date: 1990 Sex: F Assigned Patient Location: US Current Patient Location: Accession/Order Number: [id number] Exam Date: 12/17/2023 09:42 Report Date: 12/17/2023 10:20 At the request of: SLIM DUPREE Procedure: US OB transvaginal EXAM: US OB placenta, US OB transvaginal HISTORY: Low Lying Placenta COMPARISON: None. TECHNIQUE: Transabdominal and transvaginal FINDINGS: Morales intrauterine gestation position: Cephalic presentation, longitudinal lie Placenta: Posterior. No intraplacental or retroplacental echogenic abnormality. Grade 0. The placental edge is 1.9 cm from the internal os. The technologist notes a possible contraction limiting this measurement. Heart rate: 129 beats minute Cervix: Closed, 4.6 cm. US/US OB transvaginal IMPRESSION: Low lying placenta Closed cervix measuring 4.6 cm in length Electronically authenticated by: CARMEL SIMONS Date: 12/17/2023 10:20
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
== END 2023-12-17 09:35 | disposition home or self-care (01) ==
LOC: US 09:34
PROVIDERS: Visit Provider Obstetrics & Gynecology
DX: O44.42 Low lying placenta NOS or without hemorrhage, second trimester (principal); Z3A.24 24 weeks gestation of pregnancy
CPT/HCPCS: 76815; 76817

== ENCOUNTER 2024-01-07 09:06 | Outpatient (OUT) | payer OTHER, SELFPAY ==
--- OUTSIDE RECORDS SUMMARY | 2024-01-07 09:24 | XMS_ITS | CCD ---
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 Z3A.25 4. Diabetes mellitus screening Z13.1 CBC Glucose tolerance, 1 hour Return OB: Patient presents today for a routine obstetrics appointment. Patient is currently 25w3d . Patient states she is doing well but has complaints of being tired due to current . Patient has verbalizes frequent movement. labor precautions was discussed/given and patient was instructed to perform kick counts three times a day. Pt will repeat placenta ultrasound in 3 weeks. Orders Placed This Encounter Procedures US OB PLACENTA W US OB TRANSVAGINAL CBC Glucose tolerance, 1 hour POCT urinalysis dipstick manually resulted Follow Up: Patient is to return to office in 3 week for routine OB appointment. Documented by Fanny Recinos LPN on behalf of: Slim Willard DO documented in this encounter [facility] History of Present illness Narrative 11-23-2023 [...] of: RASHEED Rivera documented in this encounter [facility] Healthcare Evaluation note Note Date & Type Note Facility Evaluation note Diagnosis Second trimester state, incidental 21 weeks gestation of documented in this encounter [facility] Healthcare Evaluation note Note Date & Type Note Facility Evaluation note Diagnosis Low-lying placenta Hemorrhage from placenta previa, unspecified as to episode of care Second trimester state, incidental 25 weeks gestation of Diabetes mellitus screening Screening for diabetes mellitus documented in this encounter [facility] Summary Purpose Family History No Family History Records FoundNo Family History Records Found Advance Directives No Advanced Directives Records FoundNo Advanced Directives Records Found Additional Source Comments INFORMATION SOURCE (unrecogn ized section and content) DATE CREATED AUTHOR 11/15/2018 [facility] DATE CREATED AUTHOR AUTHOR'S ORGANMIRANDA ATION 12/25/2023 [facility] EP[employer] Care Teams (unrecognized sec tion and content) Broadcast Journalist Relationship Specialty Start Date End Date Burke Dennis MD [address] [place] [address] (Fax) PCP - [facility] 05/18/23 Broadcast Journalist Relationship Specialty Start Date End Date Burke Dennis MD [address] [place] [address] (Fax) PCP - [facility] 05/18/23 Reason for Visit (unrecogniz ed [...] BE BASED ON THE PRIMARY CLINICAL RECORDS. [facility] [employer] provides no warranty or guarantee of the accuracy or completeness of information in this document.
[2024-01-07 10:32] LABS: Basophils Percent Auto 0.4 % (0.2-2.0); Eosinophils Absolute Auto 0.1 10^3/uL (0.0-0.7); Eosinophils Percent Auto 0.6 % (0.9-7.0); Hematocrit 34.2 % (36.0-48.0); Hemoglobin 11.8 g/dL (12.0-16.0); Immature Granulocytes Abs Auto 0.04 10^3/uL (0.00-0.03); Immature Granulocytes Pct Auto 0.4 % (0.0-0.5); Lymphocytes Absolute Auto 1.9 10^3/uL (1.2-3.8); Lymphocytes Percent Auto 19.2 % (20.5-60.0); Mean Corpuscular HGB Conc 34.5 g/dL (29.9-35.2); Mean Corpuscular Hemoglobin 31.6 pg (26.7-34.0); Mean Corpuscular Volume 91.4 fL (81.0-99.0); Mean Platelet Volume 9.1 fL (9.5-13.5); Monocytes Absolute Auto 0.6 10^3/uL (0.3-0.8); Neutrophils Absolute Auto 7.3 10^3/uL (1.4-6.5); Neutrophils Percent Auto 73.4 % (43.0-75.0); Platelet Count 231 10^3/uL (150-450); Red Blood Count 3.74 10^6/uL (4.20-5.40)
[2024-01-07 11:17] LABS: Glucose 1 Hour 104 mg/dL (<130)
== END 2024-01-07 09:07 | disposition home or self-care (01) ==
LOC: LAB 09:06
PROVIDERS: Visit Provider Obstetrics & Gynecology
DX: Z13.1 Encounter for screening for diabetes mellitus (principal)
CPT/HCPCS: 36415; 82950; 85025

== ENCOUNTER 2024-01-13 09:26 | Outpatient (OUT) | payer OTHER, SELFPAY ==
--- NOTE | 2024-01-13 09:29 | US_ITS ---
The [address] [address] Patient Name: LIZZ ABBOTT MRN: [id number] date: 1990 Sex: F Assigned Patient Location: [facility] Current Patient Location: Accession/Order Number: [id number] Exam Date: 01/13/2024 09:29 Report Date: 01/14/2024 06:07 At the request of: SLIM DUPREE Procedure: US OB placenta EXAMINATION: US OB placenta, US OB cervical length HISTORY: LOW LYING PLACENTA COMPARISON: Ultrasound OB placenta 12/17/2023 FINDINGS: PLACENTA: Posterior with lower margin 5.5 cm from os. CERVIX LENGTH: 4.4 cm, closed. HEART RATE: 138 bpm OTHER: None. US/US OB placenta IMPRESSION: 1. Single live intrauterine 28 weeks 3 days. 2. Posterior placenta which is no longer low-lying. 3. Closed cervix 4.4 cm in length. Electronically authenticated by: AYESHA GONZALES Date: 01/14/2024 06:07
--- NOTE | 2024-01-13 09:30 | US_ITS ---
[address] [address] Patient Name: LIZZ ABBOTT MRN: [id number] date: 1990 Sex: F Assigned Patient Location: [facility] Current Patient Location: Accession/Order Number: [id number] Exam Date: 01/13/2024 09:29 Report Date: 01/14/2024 06:07 At the request of: SLIM DUPREE Procedure: US OB cervical length EXAMINATION: US OB placenta, US OB cervical length HISTORY: LOW LYING PLACENTA COMPARISON: Ultrasound OB placenta 12/17/2023 FINDINGS: PLACENTA: Posterior with lower margin 5.5 cm from os. CERVIX LENGTH: 4.4 cm, closed. HEART RATE: 138 bpm OTHER: None. US/US OB cervical length IMPRESSION: 1. Single live intrauterine 28 weeks 3 days. 2. Posterior placenta which is no longer low-lying. 3. Closed cervix 4.4 cm in length. Electronically authenticated by: AYESHA GONZALES Date: 01/14/2024 06:07
--- OUTSIDE RECORDS SUMMARY | 2024-01-13 09:32 | XMS_ITS | CCD ---
Author Organization [facility] Care Team Providers Care Stumper Feller Name Role Phone REQUEST, NONE LISTED Primary Care Unavailable VICTORIANO GR Consulting Unavailable ILEANA LOVE Admitting Unavailable ILEANA LOVE Attending Unavailable ILEANA LOVE Consulting Unavailable VINAY EMMANUEL Consulting Unavailable ADAM HARRIS Consulting Unavailable DAVINA FREY Consulting Unavailable Burke Dennis MD Unavailable Unavailable Primary Care Provider UnavailSLIM Moulton Attending [...] 11/23/2023 Discontinued ondansetron 4 mg oral tablet (6 sources) Serotonin-3 Receptor Antagonist Start: 10-01-2023 End: [...] CBC WITH AUTO DIFFon BASOPHILS ABSOLUTE AUTO 0 [facility] Basophils/100 WBC (Bld) 0.4 % 0.2 - 2.0 % [facility] Eosinophils/100 WBC (Bld) 0.6 % Low 0.9 - 7.0 % [facility] Erythrocyte distribution width (RBC) [Ratio] 13 % 11.0 - 15.0 % [facility] Hematocrit (Bld) [Volume fraction] 34.2 % Low 36.0 - 48.0 % [facility] Hemoglobin (Bld) [Mass/Vol] 11.8 g/dL Low 12.0 - 16.0 g/dL [facility] IMMATURE GRANULOCYTES ABS AUTO 0.04 High [facility] Immature granulocytes/100 WBC (Bld) 0.4 % 0.0 - 0.5 % [facility] Interpretation and review of laboratory results Abnormal [facility] LYMPHOCYTES ABSOLUTE AUTO 1.9 [facility] Lymphocytes/100 WBC (Bld) 19.2 % Low 20.5 - 60.0 % [facility] MCH (RBC) [Entitic mass] 31.6 pg 26.7 - 34.0 pg [facility] MCHC (RBC) [Mass/Vol] 34.5 g/dL 29.9 - 35.2 g/dL [facility] MCV (RBC) [Entitic vol] 91.4 fL 81.0 - 99.0 fL [facility] MONOCYTES ABSOLUTE AUTO 0.6 [facility] Monocytes/100 WBC (Bld) 6 % 1.7 - 12.0 % [facility] NEUTROPHILS ABSOLUTE AUTO 7.3 High [facility] Neutrophils/100 WBC (Bld) 73.4 % 43.0 - 75.0 % [facility] Platelet mean volume (Bld) [Entitic vol] 9.1 fL Low 9.5 - 13.5 fL [facility] # [facility].1 [facility]T [facility] RBC 3.74 Low [facility] e TB WBC 10 [facility] Urinalysis macro (dipstick) panel (U)on 12-23-2023 Bilirubin, UA Positive Negative - 4(70) +++ mg/dL [facility] Comment on above: small Blood, UA Negative Negative - 50 Ramiro/mcL [facility] Clarity, UA Clear [facility], UA Nadia [facility] e Glucose, UA Negative Negative - 2000(110) ++++ mg/dL [facility] Interpretation and review of laboratory results Abnormal [facility] Ketones, UA Positive Negative - 160(16) ++++ mg/dL [facility] Comment on above: trace Leukocytes, UA Negative Negative - 500+++ Gilmer/mcL [facility] Nitrite, UA Negative Negative - Positive [facility] pH, UA 5.5 5 - 9 [facility] Protein, UA Trace Negative - 1999(20) ++++ mg/dL [facility] Spec Grav, UA 1.03 1 - 1.03 [facility] Urobilinogen, UA 0.2 0.2 - 12 mg/dL [facility] ALL CBC WITH AUTO DIFFon BASOPHILS ABSOLUTE AUTO 0.0 [facility] Basophils/100 WBC (Bld) 0.3 % 0.2 - 2.0 % [facility] Eosinophils/100 WBC (Bld) 0.6 % Low 0.9 - 7.0 % [facility] Erythrocyte distribution width (RBC) [Ratio] 13.6 % 11.0 - 15.0 % [facility] Hematocrit (Bld) [Volume fraction] 33.7 % Low 36.0 - 48.0 % [facility] e Hemoglobin (Bld) [Mass/Vol] 11.5 g/dL Low 12.0 - 16.0 g/dL [facility] IMMATURE GRANULOCYTES ABS AUTO 0.05 High [facility] Immature granulocytes/100 WBC (Bld) 0.5 % 0.0 - 0.5 % [facility] Interpretation and review of laboratory results Abnormal [facility] LYMPHOCYTES ABSOLUTE AUTO 2.2 [facility] Lymphocytes/100 WBC (Bld) 22.0 % 20.5 - 60.0 % [facility] MCH (RBC) [Entitic mass] 30.9 pg 26.7 - 34.0 pg [facility] MCHC (RBC) [Mass/Vol] 34.1 g/dL 29.9 - 35.2 g/dL [facility] MCV (RBC) [Entitic vol] 90.6 fL 81.0 - 99.0 fL [facility] MONOCYTES ABSOLUTE AUTO 0.5 [facility] Monocytes/100 WBC (Bld) 5.3 % 1.7 - 12.0 % [facility] NEUTROPHILS ABSOLUTE AUTO 7.2 High [facility] Neutrophils/100 WBC (Bld) 71.3 % 43.0 - 75.0 % [facility] Platelet mean volume (Bld) [Entitic vol] 9.4 fL Low 9.5 - 13.5 fL [facility] EO # 0.1 [facility] PLT 255 [facility] RBC 3.72 Low [facility] TB[facility] WBC 10.1 [facility] Urinalysis macro (dipstick) panel (U)on 11-23-2023 Bilirubin, UA Negative Negative - 4(70) +++ mg/dL [facility] Blood, UA Negative Negative - 50 Ramiro/mcL [facility] Clarity, UA Clear [facility] Color, UA Yellow [facility] e Glucose, UA Negative Negative - 1999(110) ++++ mg/dL [facility] Interpretation and review of laboratory results Abnormal [facility] Ketones, UA Positive Negative - 160(16) ++++ mg/dL [facility] Comment on above: 40 Leukocytes, UA Trace Negative - 500+++ Gilmer/mcL [facility] Nitrite, UA Negative Negative - Positive [facility] pH, UA 7.0 5 - 9 [facility] e Protein, UA Negative Negative - 1999(20) ++++ mg/dL [facility] Spec Grav, UA 1.030 1 - 1.03 [facility] Urobilinogen, UA 0.2 0.2 - 12 mg/dL [facility] ABO AND RH TYPEon 11-01-2018 ABO and Rh group Nom (d) ABO Rh Typing A Rh Positive Normal [facility] Comment on above: Performed By: #### A EBER #### [facility] [address] [place] [id number] Bartolo Escobedo CARDIAC JUDITH ADMITon 019 CK [Catalytic activity/Vol] 38 U/L Normal 30-135 [facility] Comment on above: Performed By: #### C ROBERTA, CMADM, PREGQNT #### [facility] [address] [place], [place] [address] Bartolo Escobedo CK.MB [Mass/Vol] ng/mL Normal <=2.37 [facility] Comment on above: Performed By: #### C ROBERTA, CMADM, PREGQNT #### [facility] [address] [place], [place] [address] Bartolo Escobedo INR Coag (Bld) [Relative time] SEE BELOW Normal [facility] Comment on above: Result Comment: <0.0 34 ng/ml NEGATIVE 0.034-0.119 INDETERMINATE 0.120 AMI CUT OFF Performed By: #### C MP, CMADM, PREGQNT #### [facility] [address] [place], [place] [phone] Bartolo Fanny MADELINE 16.0 ng/mL Normal <=61.5 [facility] Comment on above: Performed By: #### C MP, CMADM, PREGQNT #### [facility] [address] [place], [place] [phone] Bartolo Fanny TROP <0.017 Normal <=0.034 [facility] Comment on above: Performed By: #### C MP, CMADM, PREGQNT #### [facility] [address] [place], [place] [phone] Bartolo Fanny CBC AUTO DIFFon 11-01-2018 Basophils (Bld) [#/Vol] 0.0 103/ul Normal 0.0-0.1 [facility] Comment on above: Performed By: #### C BC #### [facility] [address] [place] [address] Bartolo Fanny Basophils/100 WBC (Bld) 0.2 % Normal 0.2-2.0 [facility] Comment on above: Performed By: #### C BC #### [facility] [address] [place] [address] Bartolo Fanny Eosinophils (Bld) [#/Vol] 0.0 103/ul Normal 0.0-0.7 [facility] Comment on above: Performed By: #### C BC #### [facility] [address] [place] [address] Bartolo Fanny Eosinophils/100 WBC (Bld) 0.2 % Critically low 0.9-7.0 [facility] Comment on above: Performed By: #### C BC #### [facility] [address] [place], [place] [phone] Bartolo Fanny Erythrocyte distribution width (RBC) [Ratio] 12.7 % Normal 11.0-15.0 [facility] Comment on above: Performed By: #### C BC #### [facility] [address] [place] [phone] Bartolo Fanny Hematocrit (Bld) [Volume fraction] 33.1 % Critically low 36.0-48.0 [facility] Comment on above: Performed By: #### C BC #### [facility] [address] [place], [place] [phone] Bartolo Fanny Hemoglobin (Bld) [Mass/Vol] 11.3 g/dL Critically low 12.0-16.0 [facility] Comment on above: Performed By: #### C BC #### [facility] [address] [place], [place] [phone] Bartolo Fanny IG # 0.03 10e3/ul Normal 0.00-0.03 [facility] Comment on above: Performed By: #### C BC #### [facility] [address] [place] [address] Bartolo Fanny IG % 0.2 % Normal 0.0-0.5 [facility] Comment on above: Performed By: #### C BC #### [facility] [address] [place], [place] [phone] Bartolo Fanny Lymphocytes (Bld) [#/Vol] 1.8 103/ul Normal 1.2-3.8 [facility] Comment on above: Performed By: #### C BC #### [facility] [address] [place], [place] [phone] Bartolo Fanny Lymphocytes/100 WBC (Bld) 13.9 % Critically low 20.5-60.0 [facility] Comment on above: Performed By: #### C BC #### [facility] [address] [place], [place] [phone] Bartolo Fortuneen MANUAL DIFF REQ NO Normal [facility] Comment on above: Performed By: #### C BC #### [facility] [address] [place], [place] [phone] Bartolo Fanny MCH (RBC) [Entitic mass] 29.7 pg Normal 26.7-34.0 [facility] Comment on above: Performed By: #### C BC #### [facility] [address] [place], [place] [phone] Bartolo Fanny MCHC (RBC) [Mass/Vol] 34.1 g/dL Normal 29.9-35.2 [facility] Comment on above: Performed By: #### C BC #### [facility] [address] [place], [place] [address] Bartolo Escobedo MCV (RBC) [Entitic vol] 87.1 fL Normal 81.0-99.0 [facility] Comment on above: Performed By: #### C BC #### [facility] [address] [place] [phone] Bartolo Fanny Monocytes (Bld) [#/Vol] 0.4 103/ul Normal 0.3-0.8 [facility] Comment on above: Performed By: #### C BC #### [facility] [address] [place], [place] [phone] Bartolo Fanny Monocytes/100 WBC (Bld) 3.1 % Normal 1.7-12.0 [facility] Comment on above: Performed By: #### C BC #### [facility] [address] [place], [place] [phone] Bartolo Fanny Neutrophils (Bld) [#/Vol] 10.8 103/ul Critically high 1.4-6.5 [facility] Comment on above: Performed By: #### C BC #### [facility] [address] [place], [place] [phone] Bartolo Fanny Neutrophils/100 WBC (Bld) 82.4 % Critically high 43.0-75.0 [facility] Comment on above: Performed By: #### C BC #### [facility] [address] [place], [place] [phone] Bartolo Fanny Platelet mean volume (Bld) [Entitic vol] 10.4 fL Normal 9.5-13.5 [facility] Comment on above: Performed By: #### C BC #### [facility] [address] [place], [place] [phone] Bartolo Fanny Platelets (Bld) [#/Vol] 255 103/ul Normal 150-450 [facility] Comment on above: Performed By: #### C BC #### [facility] [address] [place], [place] [address] Bartolo Escobedo RBC (Bld) [#/Vol] 3.80 106/ul Critically low 4.20-5.40 [facility] Comment on above: Performed By: #### C BC #### [facility] [address] [place], [place] [address] Bartolo Escobedo WBC (Bld) [#/Vol] 13.1 103/ul Critically high 4.0-11.0 [facility] Comment on above: Performed By: #### C BC #### [facility] [address] [place], [place] [address] C-SPINE WO CONon 11-02-[address] C-SPINE WO CON Patient: LIZZ ZACARIAS Exam Date: 11/01/2018 : 1990 Gender:F Ordering : RASHEED IQBAL Admission #: [id number] Family : DR VICTORIANO GR D.O. Order #: [id number] CLICK HERE TO VIEW EXAM RADIOLOGY REPORT [...] M.D. on 11/01/2018 at 15:02 Normal [facility] CT HEAD WO CONon 11-01-2018 CT HEAD WO CON Patient: LIZZ ZACARIAS Exam Date: 11/01/2018 : 1990 Gender:F Ordering : RASHEED IQBAL Admission #: [id number] Family : DR VICTORIANO GR D.O. Order #: [id number] CLICK HERE TO VIEW EXAM RADIOLOGY REPORT [...] Emmanuel M.D. on 11/01/2018 at 14:59 Normal [facility] PREG QUANT HCGon 11-01-2018 HCG QUANT 1500.00 mIU/mL Normal [facility] Comment on above: Performed By: #### C JANAY GRANADOS, PREGQNT #### [facility] [address] [place] [address] Bartolo Escobedo HCG RANGE SEE BELOW Normal [facility] Comment on above: Result Comment: 5-50 0-1 WEEK 40-300 1-2 WEEKS 100-1,000 2-3 WEEKS 500-6,000 3-4 WEEKS 5,000-200,000 1-2 MONTHS 10,000-100,000 2-3 MONTHS 3,000-50,000 2ND TRIMESTER 1,000-50,000 3RD TRIMESTER Performed By: #### C JANAY GRANADOS, PREGQNT #### [facility] [address] [place] [phone] Bartolo Escobedo PROF 14(COMP METB)on 019 Albumin [Mass/Vol] 3.5 g/dL Normal 3.5-5.0 [facility] Comment on above: Performed By: #### C JANAY GRANADOS, PREGQNT #### [facility] [address] [place], [place] [phone] Bartolo Escobedo Albumin/Globulin [Mass ratio] 0.9 {ratio} Normal [facility] Comment on above: Performed By: #### C JANAY GRANADOS, PREGQNT #### [facility] [address] [place], [place] [address] Bartolo Fanny ALP [Catalytic activity/Vol] 43 U/L Normal 38-126 [facility] Comment on above: Performed By: #### C MP, CMADM, PREGQNT #### [facility] [address] [place] [address] Bartolo Fanny ALT [Catalytic activity/Vol] 12 U/L Normal 9-52 [facility] Comment on above: Performed By: #### C MP, CMADM, PREGQNT #### [facility] [address] [place] [address] Bartolo Fanny Anion gap [Moles/Vol] 13.8 mmol/L Normal [facility] Comment on above: Performed By: #### C MP, CMADM, PREGQNT #### [facility] [address] [place] [address] Bartolo Fanny AST [Catalytic activity/Vol] 12 U/L Critically low 14-36 [facility] Comment on above: Performed By: #### C MP, CMADM, PREGQNT #### [facility] [address] [place] [phone] Bartolo Fanny Bilirubin Ql (U) 0.7 mg/dL Normal 0.2-1.3 [facility] Comment on above: Performed By: #### C MP, CMADM, PREGQNT #### [facility] [address] [place] [phone] Bartolo Fanny Calcium [Mass/Vol] 8.7 mg/dL Normal 8.4-10.2 [facility] Comment on above: Performed By: #### C MP, CMADM, PREGQNT #### [facility] [address] [place] [phone] Bartolo Fanny Chloride [Moles/Vol] 104 mmol/L Normal 98-107 [facility] Comment on above: Performed By: #### C MP, CMADM, PREGQNT #### [facility] [address] [place] [phone] Bartolo Fanny CO2 [Moles/Vol] 22.7 mmol/L Normal 22.0-30.0 [facility] Comment on above: Performed By: #### C MP, CMADM, PREGQNT #### [facility] [address] [place] [address] Bartolo Fanny Creatinine [Mass/Vol] 0.67 mg/dL Normal 0.52-1.04 [facility] Comment on above: Performed By: #### C MP, CMADM, PREGQNT #### [facility] [address] [place] [address] Bartolo Fanny EGFR-AF MICRONESIAN >60 Normal >=60 [facility] Comment on above: Performed By: #### C MP, CMADM, PREGQNT #### [facility] [address] [place] [address] Bartolo Fanny EGFR-NON AF MICRONESIAN >60 Normal >=60 [facility] Comment on above: Performed By: #### C MP, CMADM, PREGQNT #### [facility] [address] [place] [address] Bartolo Fanny Globulin (S) [Mass/Vol] 4.0 g/dL Normal [facility] Comment on above: Performed By: #### C MP, CMADM, PREGQNT #### [facility] [address] [place] [address] Bartolo Fanny Glucose [Mass/Vol] 113 mg/dL Critically high 74-106 [facility] Comment on above: Performed By: #### C MP, CMADM, PREGQNT #### [facility] [address] [place] [address] Bartolo Fanny Potassium [Moles/Vol] 3.5 mmol/L Normal 3.4-5.0 [facility] Comment on above: Performed By: #### C MP, CMADM, PREGQNT #### [facility] [address] [place] [address] Bartolo Fanny Protein [Mass/Vol] 7.5 g/dL Normal 6.1-8.2 [facility] Comment on above: Performed By: #### C MP, CMADM, PREGQNT #### [facility] [address] [place] [phone] Bartolo Fanny Sodium [Moles/Vol] 137 mmol/L Normal 137-145 [facility] Comment on above: Performed By: #### C JANAY GRANADOS, PREGQNT #### [facility] [address] [place] [phone] Bartolo Fanny Urea nitrogen [Mass/Vol] 10.0 mg/dL Normal 7.0-17.0 [facility] Comment on above: Performed By: #### C JANAY GRANADOS, PREGQNT #### [facility] [address] [place] [phone] Bartolo Fanny Urea nitrogen/Creatinine [Mass ratio] 14.9 mg/mg Normal [facility] Comment on above: Performed By: #### C JANAY GRANADOS, PREGQNT #### [facility] [address] [place], [place] [phone] Bartolo Fanny PROTIMEon 11-01-2018 INR Coag (PPP) [Relative time] 1.02 {INR} Normal [facility] Comment on above: Performed By: #### P T, PTT #### [facility] [address] [place], [place] [phone] Bartolo Fanny PT Coag (PPP) [Time] PLEASE NOTE: NORMAL RANGE CHANGE 11-03-2013 DUE TO REAGENT LOT CHANGE Normal [facility] Comment on above: Performed By: #### P T, PTT #### [facility] [address] [place], [place] [phone] Bartolo Fanny PT Coag (PPP) [Time] 10.6 s Normal 9.0-11.6 [facility] Comment on above: Performed By: #### P T, PTT #### [facility] [address] [place], [place] [phone] Bartolo Fanny PT Coag (PPP) [Time] SEE BELOW Normal [facility] Comment on above: Result Comment: AKIL RED INR: 2.0 - 3.0 CONDITIONS NOT LISTED BELOW 2.5 - 3.5 FOR PROSTHETIC HEART VALVE REPLACEMENT 2.5 - 3.5 RECURRENT THROMBOSIS Performed By: #### P T, PTT #### [facility] [address] [place], [place] [address] Bartolo Escobedo PTTon 11-01-2018 aPTT Coag (Bld) [Time] PLEASE NOTE: NORMAL RANGE CHANGE 01-10-2015 DUE TO REAGENT LOT CHANGE Normal [facility] Comment on above: Performed By: #### P T, PTT #### [facility] [address] [place], [place] [address] Bartolo Escobedo aPTT Coag (Bld) [Time] 21.6 s Critically low 22.3-36.2 [facility] Comment on above: Performed By: #### P T, PTT #### [facility] [address] [place], [place] [address] Bartolo Escobedo TYPE AND SCREENon 11-01-2018 TYPE AND SCREEN Negative Normal [facility] Comment on above: Performed By: #### P T, PTT #### [facility] [address] [place], [place] [address] Bartolo Escobedo US PREG <14 WKSon 11-01-2018 US PREG <14 WKS Patient: LIZZ ZACARIAS Exam Date: 11/01/2018 : 1990 Gender:F Ordering : RASHEED IQBAL Admission #: [id number] Family : DR VICTORIANO GR D.O. Order #: [id number] CLICK HERE TO VIEW EXAM RADIOLOGY REPORT [...] M.D. on 11/01/2018 at 15:43 Normal [facility] Vital Signs Date Time Vital Sign Value Performing Clinician Faci lity 12-23-2023 15:41-0500 Body weight 83.01 kg Slim Sudheer DO Work Phone: [facility] 12-23-2023 15:41-0500 Diastolic blood pressure 68 mm[Hg] Slim Sudheer DO Work Phone: [facility] 12-23-2023 15:41-0500 Systolic blood pressure 110 mm[Hg] Slim Sudheer DO Work Phone: [facility] 11-23-2023 15:29-0400 Body weight 79.83 kg Tabatha IQBAL Work Phone: [facility] 11-23-2023 15:29-0400 Diastolic blood pressure 64 mm[Hg] Tabatha IQBAL Work Phone: [facility] 11-23-2023 15:29-0400 Systolic blood pressure 118 mm[Hg] Tabatha IQBAL Work Phone: [facility] Healthcare Encounters Encounter Date Encounter Type Care Provider Facility Start: 01-07-2024 End: 01-07-2024 [facility] Result Encounter Slim Sudheer DO Work Phone: [facility] External Department Unsolicited Start: 01-07-2024 End: 01-07-2024 [facility] Result Encounter Slim Sudheer DO Work Phone: [facility] External Department Unsolicited Start: 12-23-2023 End: 12-23-2023 flow sheet Slim Sudheer DO Work Phone: [facility] Comment on above: Low-lying placenta; Second trimester ; 25 weeks gestation of ; Diabetes mellitus screening Start: 12-23-2023 End: 12-23-2023 ambulatory SLIM SUDHEER Not Available Start: 12-23-2023 End: 12-23-2023 Bamboo flowsheet Slim Sudheer DO Work Phone: [facility] Start: 12-23-2023 End: 12-23-2023 Bamboo flowsheet Slim Sudheer DO Work Phone: [facility] Start: 11-23-2023 End: 11-23-2023 flow sheet Tabatha IQBAL Work Phone: [facility] Comment on above: Second trimester pre gnancy; 21 weeks gestation of Start: 11-23-2023 End: 11-23-2023 ambulatory TABATHA KAY Not Available Start: 11-23-2023 End: 11-23-2023 [facility] Result Encounter Slim Sudheer DO Work Phone: [facility] External Department Unsolicited Start: 11-23-2023 End: 11-23-2023 [facility] Result Encounter Slim Sudheer DO Work Phone: [facility] External Department Unsolicited Start: 10-26-2023 End: 10-26-2023 ambulatory SLIM SUDHEER Not Available Start: 10-01-2023 End: 10-01-2023 ambulatory SLIM SUDHEER Not Available Start: 11-01-2018 End: 11-01-2018 Patient encounter procedure NONE LISTED REQUEST Facility: Procedures Date Procedure Procedure Detail Performing Clinician Start: 01-07-2024 ALL CBC WITH AUTO DIFF Slim Sudheer DO Work Phone: Start: 12-23-2023 Urnls dip stick/tabl et rgnt [...] AM EST Routine [facility] [address] [place] [id number] Tabatha Kay PA [address] [place], [place] [id number] [facility] Start: 01-13-2024 End: 01-13-2024 Professional / ancillary services management 01/13/2024 9:30 AM EST Ancillary Procedure [facility] [address] [facility] [place] [address] [facility] Start: 12-23-2023 End: 12-23-2023 Patient encounter procedure [facility] Comment on above: Low-lying placenta Start: 12-23-2023 End: 12-22-2024 CBC panel - Blood by Automated count CBC Lab Routine Diabetes mellitus screening Expected: 12/23/2023 (Approximate), Expires: 12/22/2024 [facility] Comment on above: Expected: 12/23/2023 (Approximate), Expires: 12/22/2024 Start: 12-23-2023 End: 12-22-2024 Measurement of glucose 1 hour after glucose challenge for glucose tolerance test Glucose tolerance, 1 hour Lab Routine Diabetes mellitus screening Expected: 12/23/2023 (Approximate), Expires: 12/22/2024 [facility] Comment on above: Expected: 12/23/2023 (Approximate), Expires: 12/22/2024 Start: 12-23-2023 End: 12-22-2024 US for US OB PLACENTA W US OB TRANSVAGINAL Imaging Routine Low-lying placenta Expected: 12/23/2023 (Approximate), Expires: 12/22/2024 [facility] Work Phone: Comment on above: Expected: 12/23/2023 (Approximate), Expires: 12/22/2024 Start: 11-23-2023 End: 11-23-2023 Patient encounter procedure 11/23/2023 3:30 PM EDT Routine [facility] [address] [facility] [place] [id number] Tabatha Kay, PA [address] [place], [place] [id number] [facility] Start: 10-18-2023 Influenza vaccination Influenza Vacc ine (#1) [facility] Payers Date Payer Category Payer Private Health Insurance [employer] [id number] 2023 Unknown [employer] [id number] 2023-Present [address] [place] [id number] 2023 Unknown [id number] 1992 Unknown [id number] 1992 Unknown [id number] [id number] 1992 Unknown [id number] [id number] 1992 Unknown [id number] [id number] 1992 Unknown [id number] [id number] 1957 Self-pay [id number] Social History Date Type Detail Facility Start: 10-01-2023 Tobacco smoking stat [facility] Never smoked tobacco [facility] Start: 10-01-2023 Tobacco use and exposure Smoke less tobacco non-user [facility] Start: 10-26-2023 End: 11-23-2023 Alcoholic beverage intake Lifetime non-drinker (finding) [facility] Start: 10-01-2023 History of Social function [facility] Start: 10-01-2023 Tobacco use panel [facility] Start: 07-12-2023 [facility] Start: 1990 Sex assigned at Not on file [facility] History of Present illness Narrative 12-23-2023 Fanny Recinos, HAT FORMER - 12/23/2023 3:20 PM EST Note Date [...] nursing note reviewed. Exam conducted with a head refrigerating engineer present. Vitals: There is no height or [...] of: RASHEED Rivera documented in this encounter [facility] Evaluation note Note Date & Type Note Facility Evaluation note Diagnosis Second trimester state, incidental 21 weeks gestation of documented in this encounter [facility] Evaluation note Note Date & Type Note Facility Evaluation note Diagnosis Low-lying placenta Hemorrhage from placenta previa, unspecified as to episode of care Second trimester state, incidental 25 weeks gestation of Diabetes mellitus screening Screening for diabetes mellitus documented in this encounter [facility] Summary Purpose Family History No Family History Records FoundNo Family History Records Found Advance Directives No Advanced Directives Records FoundNo Advanced Directives Records Found Additional Source Comments INFORMATION SOURCE (unrecogn ized section and content) DATE CREATED AUTHOR 11/15/2018 [facility] DATE CREATED AUTHOR AUTHOR'S ORGANMIRANDA ATION 12/25/2023 [facility] Care Teams (unrecognized sec tion and content) Stumper Feller Relationship Specialty Start Date End Date Burke Dennis MD [address] [facility] [place] [address] PCP - [facility] 05/18/23 Stumper Feller Relationship Specialty Start Date End Date Burke Dennis MD [address] [place] [address] (Fax) PCP - [facility] 05/18/23 Reason for Visit (unrecogniz ed [...] BE BASED ON THE PRIMARY CLINICAL RECORDS. [facility] [employer] [facility]. provides no warranty or guarantee of the accuracy or completeness of information in this document.
== END 2024-01-13 09:27 | disposition home or self-care (01) ==
LOC: NOMS 09:26
PROVIDERS: Visit Provider Obstetrics & Gynecology
DX: O44.43 Low lying placenta NOS or without hemorrhage, third trimester (principal); Z3A.28 28 weeks gestation of pregnancy
CPT/HCPCS: 76815; 76817

== ENCOUNTER 2024-03-08 | Outpatient (REF) | payer OTHER, SELFPAY ==
--- OUTSIDE RECORDS SUMMARY | 2024-03-09 09:39 | XMS_ITS | CCD ---
Author Organization [facility] Care Team Providers Care Physical Therapist Technician Name Role Phone REQUEST, NONE LISTED Primary Care Unavailable VICTORIANO GR Consulting Unavailable ILEANA LOVE Admitting Unavailable LIEANA LOVE Attending Unavailable ILEANA LOVE Consulting Unavailable VINAY EMMANUEL Consulting Unavailable STACEY HARRIS Consulting Unavailable DAVINA FREY Consulting Unavailable Burke Dennis MD Unavailable [phone] Unavailable Primary Care Provider UnavailSLIM Moulton Attending Unavailable TABATHA KAY Attending Unavailable SLIM WILLARD Attending Unavailable TABATHA KAY Attending Unavailable SLIM WILLARD Attending Unavailable TABATHA KAY Attending Unavailable SLIM [...] 11/23/2023 Discontinued ondansetron 4 mg oral tablet (20 sources) Serotonin-3 Receptor Antagonist Start: 10-01-2023 End: [...] FOR NAUSEA AND VOMITING 08/31/2023 Active Problems Active Problems Problem Classification Problem Date Documented [...] Onset: 11-10-2018 Other and delivery including normal (20 sources) Second trimester ; Translations: [Encounter for supervision of normal , unspecified, second trimester] Onset: 02-15-2024 11-23-2023 Episodic Other screening for suspected conditions (not mental disorders or infectious disease) (4 sources) Patient encounter status; Translations: [Encounter for screening for diabetes mellitus] 12-23-2023 Episodic Residual codes; unclassified (2 sources) Gestation period, 21 weeks; Translations: [21 weeks gestation of ] 11-23-2023 Episodic Residual codes; unclassified (2 sources) Gestation period, 25 weeks; Translations: [25 weeks gestation of ] 12-23-2023 Episodic Residual codes; unclassified (2 sources) Gestation period, 28 weeks; Translations: [28 weeks gestation of ] 01-13-2024 Episodic Residual codes; unclassified (2 sources) Gestation period, 30 weeks; Translations: [30 weeks gestation of ] 01-27-2024 Episodic Residual codes; unclassified (10 sources) Gestation period, 33 weeks; Translations: [33 weeks gestation of ] Onset: 02-15-2024 02-15-2024 Episodic Residual codes; unclassified (2 sources) Gestation period, 35 weeks; Translations: [35 weeks gestation of ] 02-29-2024 Episodic Residual codes; unclassified (2 sources) Gestation period, 36 weeks; Translations: [36 weeks gestation of ] 03-08-2024 Episodic Screening and history of mental health and substance abuse codes (1 source) Personal history of nicotine dependence; Translations: [PERSONAL HISTORY OF NICOTINE DEPEND] Onset: 11-10-2018 Episodic Spontaneous (4 sources) Incomplete spontaneous without complication; Translations: [INCOMPL SPONT AB W/O COMPLICATION] Onset: 11-01-2018 Episodic Syncope (1 source) Syncope and collapse; Translations: [SYNCOPE AND COLLAPSE] Onset: 11-10-2018 Episodic Past or Other Problems Problem Classification Problem Date Documented Da te Episodic/Chronic Immunizations and screening for infectious disease (2 sources) Exposure to sexually transmissible disorder; Translations: [Contact with and (suspected) exposure to infections with a predominantly sexual mode of transmission] 10-26-2023 Episodic Other female genital disorders (2 sources) Vaginal discharge; Translations: [Other specified noninflammatory disorders of vagina] 10-26-2023 Episodic Residual codes; unclassified (2 sources) Gestation period, 17 weeks; Translations: [17 weeks gestation of ] 10-26-2023 Episodic Results Test Name Value Interpretation Reference Range Facility Urinalysis macro (dipstick) panel (U)Ordered By: Rubia Corbin on 03-08-2024 Bilirubin, UA Negative Negative - 4(70) +++ mg/dL [facility] Work Phone: Blood, UA Negative Negative - 50 Ramiro/mcL [facility] Work Phone: Clarity, UA Clear [facility] [employer] Work Phone: Color, UA Yellow [facility] [employer] Work Phone: Glucose, UA Negative Negative - 2000(110) ++++ mg/dL [facility] Work Phone: Interpretation and review of laboratory results Normal [facility] [employer] Work Phone: Ketones, UA Negative Negative - 160(16) ++++ mg/dL [facility] Work Phone: Leukocytes, UA Negative Negative - 500+++ Gilmer/mcL [facility] Work Phone: Nitrite, UA Negative Negative - Positive [facility] Work Phone: pH, UA 5.5 5 - 9 [facility] Work Phone: Protein, UA Negative Negative - 1999(20) ++++ mg/dL [facility] Work Phone: Spec Grav, UA 1.025 1 - 1.03 [facility] Health care Work Phone: Urobilinogen, UA 1.0 0.2 - 12 mg/dL [facility] [employer] Work Phone: [facility] [employer] Work Phone: Urinalysis macro (dipstick) panel (U)on 02-29-2024 Bilirubin, UA Negative Negative - 4(70) +++ mg/dL [facility] Blood, UA Negative Negative - 50 Ramiro/mcL [facility] Clarity, UA Clear [facility] [employer] Color, UA Yellow [facility] [employer] Glucose, UA Negative Negative - 1999(110) ++++ mg/dL [facility] Interpretation and review of laboratory results Abnormal [facility] Ketones, UA Positive Negative - 160(16) ++++ mg/dL [facility] Comment on above: trace Leukocytes, UA Negative Negative - 500+++ Gilmer/mcL [facility] Nitrite, UA Negative Negative - Positive [facility] pH, UA 6 5 - 9 [facility] Protein, UA Positive Negative - 1999(20) ++++ mg/dL [facility] Comment on above: 30 mg Spec Grav, UA 1.03 1 - 1.03 [facility] Urobilinogen, UA 0.2 0.2 - 12 mg/dL [facility] Urinalysis macro (dipstick) panel (U)on 02-15-2024 Bilirubin, UA Negative Negative - 4(70) +++ mg/dL [facility] Blood, UA Negative Negative - 50 Ramiro/mcL [facility] Clarity, UA Clear [facility] Color, UA Yellow [facility] Glucose, UA Negative Negative - 1999(110) ++++ mg/dL [facility] Interpretation and review of laboratory results Abnormal [facility] re Ketones, UA Negative Negative - 160(16) ++++ mg/dL [facility] Leukocytes, UA Negative Negative - 500+++ Gilmer/mcL [facility] Nitrite, UA Negative Negative - Positive [facility] pH, UA 7 5 - 9 [facility] Protein, UA Few Negative - 1999(20) ++++ mg/dL [facility] Comment on above: 30mg/dL Spec Grav, UA 1.025 1 - 1.03 [facility] Urobilinogen, UA 0.2 0.2 - 12 mg/dL [facility] Urinalysis macro (dipstick) panel (U)on 01-27-2024 Bilirubin, UA Negative Negative - 4(70) +++ mg/dL [facility] Blood, UA Negative Negative - 50 Ramiro/mcL [facility] Clarity, UA Clear [facility] Color, UA Yellow [facility] Glucose, UA Negative Negative - 1999(110) ++++ mg/dL [facility] Interpretation and review of laboratory results Normal [facility] re Ketones, UA Negative Negative - 160(16) ++++ mg/dL [facility] Leukocytes, UA Negative Negative - 500+++ Gilmer/mcL [facility] Nitrite, UA Negative Negative - Positive [facility] pH, UA 5 5 - 9 [facility] Protein, UA Negative Negative - 1999(20) ++++ mg/dL [facility] Spec Grav, UA 1.01 1 - 1.03 [facility] Urobilinogen, UA 0.2 0.2 - 12 mg/dL [facility] Urinalysis macro (dipstick) panel (U)on 01-13-2024 Bilirubin, UA Negative Negative - 4(70) +++ mg/dL [facility] Blood, UA Negative Negative - 50 Ramiro/mcL [facility] Clarity, UA Clear [facility] Color, UA Yellow [facility] Glucose, UA Negative Negative - 1999(110) ++++ mg/dL [facility] Interpretation and review of laboratory results Normal [facility] Ketones, UA Negative Negative - 160(16) ++++ mg/dL [facility] Leukocytes, UA Negative Negative - 500+++ Gilmer/mcL [facility] Healthcare Nitrite, UA Negative Negative - Positive [facility] pH, UA 7 5 - 9 [facility] Protein, UA Negative Negative - 1999(20) ++++ mg/dL [facility] Spec Grav, UA 1.015 1 - 1.03 [facility] Urobilinogen, UA 0.2 0.2 - 12 mg/dL [facility] ALL CBC WITH AUTO DIFFon BASOPHILS ABSOLUTE AUTO [address] [facility] Basophils/100 WBC (Bld) 0.4 % 0.2 - 2.0 % [facility] Eosinophils/100 WBC (Bld) 0.6 % Low 0.9 - 7.0 % [facility] Erythrocyte distribution width (RBC) [Ratio] 13 % 11.0 - 15.0 % [facility] Hematocrit (Bld) [Volume fraction] 34.2 % Low 36.0 - 48.0 % [facility] e Hemoglobin (Bld) [Mass/Vol] 11.8 g/dL Low 12.0 - 16.0 g/dL [facility] IMMATURE GRANULOCYTES ABS AUTO 0.[address] [facility] Immature granulocytes/100 WBC (Bld) 0.4 % 0.0 - 0.5 % [facility] Interpretation and review of laboratory results Abnormal [facility] re LYMPHOCYTES ABSOLUTE AUTO 1.[address] [facility] Lymphocytes/100 WBC (Bld) 19.2 % Low 20.5 - 60.0 % [facility] MCH (RBC) [Entitic mass] 31.6 pg 26.7 - 34.[address] [facility] MCHC (RBC) [Mass/Vol] 34.5 g/dL 29.9 - 35.2 g/dL [facility] MCV (RBC) [Entitic vol] 91.4 fL 81.0 - 99.[address] [facility] MONOCYTES ABSOLUTE AUTO 0.[address] [facility] Monocytes/100 WBC (Bld) 6 % 1.7 - 12.0 % [facility] NEUTROPHILS ABSOLUTE AUTO 7.[address] [facility] Neutrophils/100 WBC (Bld) 73.4 % 43.0 - 75.0 % [facility] Platelet mean volume (Bld) [Entitic vol] 9.1 fL Low 9.5 - 13.[address] [facility] TBH EO # 0.1 [facility] TBH PLT 231 [facility] TB RBC 3.74 Low [facility] TBH WBC 10 [facility] Urinalysis macro (dipstick) panel (U)on 12-23-2023 Bilirubin, UA Positive Negative - 4(70) +++ mg/dL [facility] Comment on above: small Blood, UA Negative Negative - 50 Ramiro/mcL [facility] Clarity, UA Clear [facility] re Color, UA Nadia [facility] Glucose, UA Negative Negative - 1999(110) ++++ mg/dL [facility] Interpretation and review of laboratory results Abnormal [facility] re Ketones, UA Positive Negative - 160(16) ++++ mg/dL [facility] Comment on above: trace Leukocytes, UA Negative Negative - 500+++ Gilmer/mcL [facility] Nitrite, UA Negative Negative - Positive [facility] pH, UA 5.5 5 - 9 [facility] e Protein, UA Trace Negative - 1999(20) ++++ mg/dL [facility] Spec Grav, UA 1.03 1 - 1.03 [facility] Urobilinogen, UA 0.2 0.2 - 12 mg/dL [facility] ALL CBC WITH AUTO DIFFon BASOPHILS ABSOLUTE AUTO 0.[address] [facility] Basophils/100 WBC (Bld) 0.3 % 0.2 - 2.0 % [facility] Eosinophils/100 WBC (Bld) 0.6 % Low 0.9 - 7.0 % [facility] Erythrocyte distribution width (RBC) [Ratio] 13.6 % 11.0 - 15.0 % [facility] Hematocrit (Bld) [Volume fraction] 33.7 % Low 36.0 - 48.0 % [facility] Hem[facility] (Bld) [Mass/Vol] 11.5 g/dL Low 12.0 - 16.0 g/dL [facility] IMMATURE GRANULOCYTES ABS AUTO 0.[address] [facility] Immature granulocytes/100 WBC (Bld) 0.5 % 0.0 - 0.5 % [facility] Interpretation and review of laboratory results Abnormal [facility] re LYMPHOCYTES ABSOLUTE AUTO 2.[address] [facility] Lymphocytes/100 WBC (Bld) 22.0 % 20.5 - 60.0 % [facility] MCH (RBC) [Entitic mass] 30.9 pg 26.7 - 34.[address] [facility] MCHC (RBC) [Mass/Vol] 34.1 g/dL 29.9 - 35.2 g/dL [facility] MCV (RBC) [Entitic vol] 90.6 fL 81.0 - 99.[address] [facility] MONOCYTES ABSOLUTE AUTO 0.[address] [facility] Monocytes/100 WBC (Bld) 5.3 % 1.7 - 12.0 % [facility] NEUTROPHILS ABSOLUTE AUTO 7.[address] [facility] Neutrophils/100 WBC (Bld) 71.3 % 43.0 - 75.0 % [facility] Platelet mean volume (Bld) [Entitic vol] 9.4 fL Low 9.5 - 13.[address] [facility] TBH EO # 0.1 [facility] TB PLT 255 [facility] e TB RBC 3.72 Low [facility] TBH WBC 10.1 [facility] Urinalysis macro (dipstick) panel (U)on 11-23-2023 Bilirubin, UA Negative Negative - 4(70) +++ mg/dL [facility] Blood, UA Negative Negative - 50 Ramiro/mcL [facility] Clarity, UA Clear [facility] re Color, UA Yellow [facility] Glucose, UA Negative Negative - 1999(110) ++++ mg/dL [facility] Interpretation and review of laboratory results Abnormal [facility] re Ketones, UA Positive Negative - 160(16) ++++ mg/dL [facility] Comment on above: 40 Leukocytes, UA Trace Negative - 500+++ Gilmer/mcL [facility] Nitrite, UA Negative Negative - Positive [facility] pH, UA 7.0 5 - 9 [facility] Protein, UA Negative Negative - 1999(20) ++++ mg/dL [facility] Spec Grav, UA 1.030 1 - 1.03 [facility] Urobilinogen, UA 0.2 0.2 - 12 mg/dL [facility] IGP,APTIMA HPV,AGE GDLNon AGE GDLN ACOG TESTING Note . [facility] Comment on above: TESTS RESULT FLAG UN ITS REF RANGE LAB Clinician Provided Cytology Information Source.............Cervix No. of containers..01 ThinPrep Vial Age Rico JARQUIN Laura... 32 FLAG LEGEND: L-Low Normal,H-High Normal,LL-Alert Low,HH-Alert High <-Panic Low,>-Panic High,A-Abnormal,AA-Critical Abnormal Performed at: 01 =G [facility] [id number] Jen Correa MD, HPV APTIMA Positive Abnormal Negative [facility] e Comment on above: This nucleic acid am plification test detects fourteen high- risk HPV types (16,18,31,33,35,39,45,51,52,56,58,59,66,68) without differentiation. HPV GENOTYPE 16 Negative Negative [facility] HPV GENOTYPE 18,45 Positive Abnormal Negative [facility] Comment on above: Performed at: =G - L [address] [id number] Fur Finisher Tailor: Jen Correa MD, Phone: [phone] Performed at: [facility] [id number] [employer] Finisher Tailor: Jen Correa MD, Phone: [phone] IGP, APTIMA HPV, RFX 16/18,[address] [facility] Comment on above: TESTS RESULT FLAG UN ITS REF RANGE LAB DIAGNOSIS: 02 NEGATIVE FOR INTRAEPITHELIAL LESION OR MALIGNANCY. FUNGAL ORGANISMS MORPHOLOGICALLY CONSISTENT WITH JOSE LUIS SPECIES ARE PRESENT. Specimen adequacy: 02 Satisfactory for evaluation. No endocervical component is identified. Performed by: 02 Stacey Nevarez [employer] Machine Feeder . 02 Note: Note 02 The Pap smear is a screening test designed to aid in the detection of premalignant and malignant conditions of the uterine cervix. It is not a diagnostic procedure and should not be used as the sole means of detecting cervical cancer. Both false-positive and false-negative reports do occur. Test Methodology: Note 02 This liquid based ThinPrep(R) pap test was screened with the use of an image guided system. HPV Genotype Reflex Note 02 Criteria met, see HPV Genotype results. FLAG LEGEND: L-Low Normal,H-High Normal,LL-Alert Low,HH-Alert High <-Panic Low,>-Panic High,A-Abnormal,AA-Critical Abnormal Performed at: [address] [id number] Jen Correa MD, Interpretation and review of laboratory results Abnormal [facility] Healthca re SPATULA-ALONE CERVIX [facility] e URETHRITIS/DISCHARGE PLUS VA GINITIS (HTRX)on 10-27-2023 ATOPOBIUM VAGINAE 0.000 [facility] ATOPOBIUM VAGINAE Not detected [facility] BVAB 2,3 (BACTERIAL VAGINOSIS ASSOCIATED BACTERIA 2, 3); MOBILUNCUS SPP 0.[address] [facility] BVAB 2,3 (BACTERIAL VAGINOSIS ASSOCIATED BACTERIA 2, 3); MOBILUNCUS SPP Not detected [facility] JOSE LUIS ALBICANS, PARAPSILOSIS, TROPICALIS 29.119 Abnormal [facility] JOSE LUIS ALBICANS, PARAPSILOSIS, TROPICALIS Detected Abnormal [facility] JOSE LUIS GLABRATA 0.000 [facility] JOSE LUIS GLABRATA Not detected [facility] JOSE LUIS KRUSEI 0.000 [facility] Healt hcare JOSE LUIS KRUSEI Not detected [facility] CHLAMYDIA TRACHOMATIS 0.000 [facility] CHLAMYDIA TRACHOMATIS Not detected [facility] GARDNERELLA VAGINALIS 0.000 [facility] GARDNERELLA VAGINALIS Not detected [facility] Interpretation and review of laboratory results Abnormal [facility] MEGASPHAERA (TYPES 1, 2) 0.000 [facility] Healthcare MEGASPHAERA (TYPES 1, 2) Not detected [facility] MYCOPLASMA GENITALIUM 0.000 [facility] MYCOPLASMA GENITALIUM Not detected [facility] NEISSERIA GONORRHOEAE 0.[address] [facility] NEISSERIA GONORRHOEAE Not detected [facility] TRICHOMONAS VAGINALIS 0.[address] [facility] TRICHOMONAS VAGINALIS Not detected [facility] Urinalysis macro (dipstick) panel (U)on 10-26-2023 Bilirubin, UA Negative Negative - 4(70) +++ mg/dL [facility] Blood, UA Negative Negative - 50 Ramiro/mcL [facility] Clarity, UA Clear [facility] Health[facility] re Color, UA Yellow [facility] Glucose, UA Negative Negative - 1999(110) ++++ mg/dL [facility] Interpretation and review of laboratory results Abnormal [facility] re Ketones, UA Negative Negative - 160(16) ++++ mg/dL [facility] Leukocytes, UA Positive Negative - 500+++ Gilmer/mcL [facility] Comment on above: small Nitrite, UA Negative Negative - Positive [facility] pH, UA 8.5 5 - 9 [facility] Protein, UA Negative Negative - 1999(20) ++++ mg/dL [facility] Spec Grav, UA 1.020 1 - 1.03 [facility] Urobilinogen, UA 0.2 0.2 - 12 mg/dL [facility] ABO AND RH TYPEon 11-01-2018 ABO and Rh group Nom (Bld) ABO Rh Typing A Rh Positive Normal [facility] Comment on above: Performed By: #### A MEI #### [facility] [address] [place] [address] Bartolo Escobedo CARDIAC JUDITH ADMITon 019 CK [Catalytic activity/Vol] 38 U/L Normal 30-135 [facility] Comment on above: Performed By: #### C MP, CMADM, PREGQNT #### [facility] [address] [place] [address] Bartolo Escobedo CK.MB [Mass/Vol] ng/mL Normal <=2.37 [facility] Comment on above: Performed By: #### C MP, CMADM, PREGQNT #### [facility] [address] [place] [address] Bartolo Escobedo INR Coag (Bld) [Relative time] SEE BELOW Normal [facility] Comment on above: Result Comment: <0.0 34 ng/ml NEGATIVE 0.034-0.119 INDETERMINATE 0.120 AMI CUT OFF Performed By: #### C MP, CMADM, PREGQNT #### [facility] [address] [place] [address] Bartolo Escobedo MADELINE 16.0 ng/mL Normal <=61.5 [facility] Comment on above: Performed By: #### C MP, CMADM, PREGQNT #### [facility] [address] [place], [place] [id number] Bartolo Escobedo TROP <0.017 Normal <=0.034 [facility] Comment on above: Performed By: #### C MP, CMADM, PREGQNT #### [facility] [address] [place], [place] [id number] Bartolo Escobedo CBC AUTO DIFFon 11-01-2018 Basophils (Bld) [#/Vol] 0.0 103/ul Normal 0.0-0.1 [facility] Comment on above: Performed By: #### C BC #### [facility] [address] [place], [place] [id number] Bartolo Escobedo Basophils/100 WBC (Bld) 0.2 % Normal 0.2-2.0 [facility] Comment on above: Performed By: #### C BC #### [facility] [address] [place], [place] [id number] Bartolo Fanny Eosinophils (Bld) [#/Vol] 0.0 103/ul Normal 0.0-0.7 [facility] Comment on above: Performed By: #### C BC #### [facility] [address] [place] [address] Bartolo Fanny Eosinophils/100 WBC (Bld) 0.2 % Critically low 0.9-7.0 [facility] Comment on above: Performed By: #### C BC #### [facility] [address] [place] [address] Bartolo Fanny Erythrocyte distribution width (RBC) [Ratio] 12.7 % Normal 11.0-15.0 [facility] Comment on above: Performed By: #### C BC #### [facility] [address] [place] [address] Bartolo Fanny Hematocrit (Bld) [Volume fraction] 33.1 % Critically low 36.0-48.0 [facility] Comment on above: Performed By: #### C BC #### [facility] [address] [place] [address] Bartolo Fanny Hemoglobin (Bld) [Mass/Vol] 11.3 g/dL Critically low 12.0-16.0 [facility] Comment on above: Performed By: #### C BC #### [facility] [address] [place] [address] Bartolo Fanny IG # 0.03 10e3/ul Normal 0.00-0.03 [facility] Comment on above: Performed By: #### C BC #### [facility] [address] [place] [address] Bartolo Fanny IG % 0.2 % Normal 0.0-0.5 [facility] Comment on above: Performed By: #### C BC #### [facility] [address] [place] [address] Bartolo Fanny Lymphocytes (Bld) [#/Vol] 1.8 103/ul Normal 1.2-3.8 [facility] Comment on above: Performed By: #### C BC #### [facility] [address] [place] [address] Bartolo Fanny Lymphocytes/100 WBC (Bld) 13.9 % Critically low 20.5-60.0 [facility] Comment on above: Performed By: #### C BC #### [facility] [address] [place], [place] [id number] Bartolo Fanny MANUAL DIFF REQ NO Normal [facility] Comment on above: Performed By: #### C BC #### [facility] [address] [place], [place] [id number] Bartolo Fanny MCH (RBC) [Entitic mass] 29.7 pg Normal 26.7-34.0 [facility] Comment on above: Performed By: #### C BC #### [facility] [address] [place], [place] [id number] Bartolo Fanny MCHC (RBC) [Mass/Vol] 34.1 g/dL Normal 29.9-35.2 [facility] Comment on above: Performed By: #### C BC #### [facility] [address] [place], [place] [id number] Bartolo Fanny MCV (RBC) [Entitic vol] 87.1 fL Normal 81.0-99.0 [facility] Comment on above: Performed By: #### C BC #### [facility] [address] [place], [place] [id number] Bartolo Fanny Monocytes (Bld) [#/Vol] 0.4 103/ul Normal 0.3-0.8 [facility] Comment on above: Performed By: #### C BC #### [facility] Laboratory [address] [place], [place] [id number] Bartolo Fanny Monocytes/100 WBC (Bld) 3.1 % Normal 1.7-12.0 [facility] Comment on above: Performed By: #### C BC #### [facility] [address] [place], [place] [id number] Bartolo Fanny Neutrophils (Bld) [#/Vol] 10.8 103/ul Critically high 1.4-6.5 [facility] Comment on above: Performed By: #### C BC #### [facility] [address] [place], [place] [id number] Bartolo Fanny Neutrophils/100 WBC (Bld) 82.4 % Critically high 43.0-75.0 [facility] Comment on above: Performed By: #### C BC #### [facility] [address] [place] [address] Bartolo Escobedo Platelet mean volume (Bld) [Entitic vol] 10.4 fL Normal 9.5-13.5 [facility] Comment on above: Performed By: #### C BC #### [facility] [address] [place] [address] Bartolo Escobedo Platelets (Bld) [#/Vol] 255 103/ul Normal 150-450 [facility] Comment on above: Performed By: #### C BC #### [facility] [address] [place], [place] [phone] Bartolo Escobedo RBC (Bld) [#/Vol] 3.80 106/ul Critically low 4.20-5.40 [facility] Comment on above: Performed By: #### C BC #### [facility] [address] [place] [address] Bartolo Escobedo WBC (Bld) [#/Vol] 13.1 103/ul Critically high 4.0-11.0 [facility] Comment on above: Performed By: #### C BC #### [facility] [address] [place] [address] C-SPINE WO CONon 11-02-[address] C-SPINE WO CON Patient: LIZZ ZACARIAS Exam Date: 11/01/2018 : 1990 Gender:F Ordering : RASHEED IQBAL Admission #: [id number] Family : DR VICTORIANO GR D.O. Order #: [id number] CLICK HERE TO VIEW EXAM RADIOLOGY REPORT [...] M.D. on 11/01/2018 at 15:02 Normal The [facility] CT HEAD WO CONon 11-01-2018 CT HEAD WO CON Patient: LIZZ ZACARIAS Exam Date: 11/01/2018 : 1990 Gender:F Ordering : RASHEED IQBAL Admission #: [id number] Family : DR VICTORIANO GR D.O. Order #: [id number] CLICK HERE TO VIEW EXAM RADIOLOGY REPORT [...] M.D. on 11/01/2018 at 14:59 Normal The [facility] PREG QUANT HCGon 11-01-2018 HCG QUANT 1500.00 mIU/mL Normal The [facility] Comment on above: Performed By: #### C MP, CMADM, PREGQNT #### [facility] [address] [address] Bartolo Escobedo HCG RANGE SEE BELOW Normal The [facility] Comment on above: Result Comment: 5-50 0-1 WEEK 40-300 1-2 WEEKS 100-1,000 2-3 WEEKS 500-6,000 3-4 WEEKS 5,000-200,000 1-2 MONTHS 10,000-100,000 2-3 MONTHS 3,000-50,000 2ND TRIMESTER 1,000-50,000 3RD TRIMESTER Performed By: #### C MP, CMADM, PREGQNT #### [facility] [address] [place], [place] [address] Bartolo Escobedo PROF 14(COMP METB)on 019 Albumin [Mass/Vol] 3.5 g/dL Normal 3.5-5.0 [facility] Comment on above: Performed By: #### C MP, CMADM, PREGQNT #### [facility] [address] [phone] Bartolo Fanny Albumin/Globulin [Mass ratio] 0.9 {ratio} Normal [facility] Comment on above: Performed By: #### C MP, CMADM, PREGQNT #### [facility] [address] [phone] Bartolo Fanny ALP [Catalytic activity/Vol] 43 U/L Normal 38-126 The [facility] Comment on above: Performed By: #### C MP, CMADM, PREGQNT #### [facility] [address] [phone] Bartolo Fanny ALT [Catalytic activity/Vol] 12 U/L Normal 9-52 [facility] Comment on above: Performed By: #### C MP, CMADM, PREGQNT #### [facility] [address] [phone] Bartolo Fanny Anion gap [Moles/Vol] 13.8 mmol/L Normal The [facility] Comment on above: Performed By: #### C MP, CMADM, PREGQNT #### [facility] [address] [phone] Bartolo Fanny AST [Catalytic activity/Vol] 12 U/L Critically low 14-36 The [facility] Comment on above: Performed By: #### C MP, CMADM, PREGQNT #### [facility] [address] [phone] Bartolo Fanny Bilirubin Ql (U) 0.7 mg/dL Normal 0.2-1.3 The [facility] Comment on above: Performed By: #### C MP, CMADM, PREGQNT #### [facility] [address] [phone] Bartolo Fanny Calcium [Mass/Vol] 8.7 mg/dL Normal 8.4-10.2 [facility] Comment on above: Performed By: #### C MP, CMADM, PREGQNT #### [facility] [address] [address] Bartolo Fanny Chloride [Moles/Vol] 104 mmol/L Normal 98-107 The [facility] Comment on above: Performed By: #### C MP, CMADM, PREGQNT #### [facility] [address] [address] Bartolo Fanny CO2 [Moles/Vol] 22.7 mmol/L Normal 22.0-30.0 [facility] Comment on above: Performed By: #### C MP, CMADM, PREGQNT #### [facility] [address] [address] Bartolo Fanny Creatinine [Mass/Vol] 0.67 mg/dL Normal 0.52-1.04 [facility] Comment on above: Performed By: #### C MP, CMADM, PREGQNT #### [facility] [address] [place] [address] Bartolo Fanny EGFR-AF INDIAN >60 Normal >=60 [facility] Comment on above: Performed By: #### C MP, CMADM, PREGQNT #### [facility] [address] [place] [address] Bartolo Fanny EGFR-NON AF INDIAN >60 Normal >=60 The [facility] Comment on above: Performed By: #### C MP, CMADM, PREGQNT #### [facility] [address] [phone] Bartolo Fanny Globulin (S) [Mass/Vol] 4.0 g/dL Normal [facility] Comment on above: Performed By: #### C MP, CMADM, PREGQNT #### [facility] [address] [address] Bartolo Fanny Glucose [Mass/Vol] 113 mg/dL Critically high 74-106 T [facility] Comment on above: Performed By: #### C MP, CMADM, PREGQNT #### [facility] [address] [address] Bartolo Fanny Potassium [Moles/Vol] 3.5 mmol/L Normal 3.4-5.0 [facility] Comment on above: Performed By: #### C MP, CMADM, PREGQNT #### [facility] [address] [place] [address] Bartolo Fanny Protein [Mass/Vol] 7.5 g/dL Normal 6.1-8.2 [facility] Comment on above: Performed By: #### C MP, CMADM, PREGQNT #### [facility] [address] [place] [address] Bartolo Fanny Sodium [Moles/Vol] 137 mmol/L Normal 137-145 [facility] Comment on above: Performed By: #### C MP, CMADM, PREGQNT #### [facility] [address] [place] [address] Bartolo Fanny Urea nitrogen [Mass/Vol] 10.0 mg/dL Normal 7.0-17.0 [facility] Comment on above: Performed By: #### C MP, CMADM, PREGQNT #### [facility] [address] [place] [address] Bartolo Fanny Urea nitrogen/Creatinine [Mass ratio] 14.9 mg/mg Normal [facility] Comment on above: Performed By: #### C MP, CMADM, PREGQNT #### [facility] [address] [place] [address] Bartolo Fanny PROTIMEon 11-01-2018 INR Coag (PPP) [Relative time] 1.02 {INR} Normal The [facility] Comment on above: Performed By: #### P T, PTT #### [facility] [address] [place] [address] Bartolo Fanny PT Coag (PPP) [Time] PLEASE NOTE: NORMAL RANGE CHANGE 11-03-2013 DUE TO REAGENT LOT CHANGE Normal [facility] Comment on above: Performed By: #### P T, PTT #### [facility] [address] [place], [place] [address] Bartolo Fanny PT Coag (PPP) [Time] 10.6 s Normal 9.0-11.6 [facility] Comment on above: Performed By: #### P T, PTT #### [facility] [address] [place], [place] [address] Bartolo Fanny PT Coag (PPP) [Time] SEE BELOW Normal The [facility] Comment on above: Result Comment: AKIL RED INR: 2.0 - 3.0 CONDITIONS NOT LISTED BELOW 2.5 - 3.5 FOR PROSTHETIC HEART VALVE REPLACEMENT 2.5 - 3.5 RECURRENT THROMBOSIS Performed By: #### P T, PTT #### [facility] [address] [place], [place] [address] Bartolo Fanny PTTon 11-01-2018 aPTT Coag (Bld) [Time] PLEASE NOTE: NORMAL RANGE CHANGE 01-10-2015 DUE TO REAGENT LOT CHANGE Normal The [facility] Comment on above: Performed By: #### P T, PTT #### [facility] [address] [place], [place] [address] Bartolo Fanny aPTT Coag (Bld) [Time] 21.6 s Critically low 22.3-36.2 The [facility] Comment on above: Performed By: #### P T, PTT #### [facility] [address] [place], [place] [address] Bartolo Fanny TYPE AND SCREENon 11-01-2018 TYPE AND SCREEN Negative Normal The [facility] Comment on above: Performed By: #### P T, PTT #### [facility] [address] [place], [place] [address] Bartolo Fanny US PREG <14 WKSon 11-01-2018 US PREG <14 WKS Patient: LIZZ ZACARIAS Exam Date: 11/01/2018 : 1990 Gender:F Ordering : RASHEED IQBAL Admission #: [id number] Family : DR VICTORIANO GR D.O. Order #: [id number] CLICK HERE TO VIEW EXAM RADIOLOGY REPORT [...] Emmanuel M.D. on 11/01/2018 at 15:43 Normal [facility] Vital Signs Date Time Vital Sign Value Performing Clinician Kike altamirano 03-08-2024 11:50-0500 Body weight 91.54 kg Tabatha IQBAL Work Phone: [facility] 03-08-2024 11:50-0500 Diastolic blood pressure 74 mm[Hg] Tabatha IQBAL Work Phone: [facility] 03-08-2024 11:50-0500 Systolic blood pressure 120 mm[Hg] Tabatha IQBAL Work Phone: [facility] 02-29-2024 14:54-0500 Body weight 89.81 kg Slim Sudheer DO Work Phone: [facility] 02-29-2024 14:54-0500 Diastolic blood pressure 70 mm[Hg] Slim Sudheer DO Work Phone: [facility] 02-29-2024 14:54-0500 Systolic blood pressure 120 mm[Hg] Slim Sudheer DO Work Phone: [facility] 02-15-2024 14:26-0500 Body weight 88.81 kg Tabatha IQBAL Work Phone: [facility] 02-15-2024 14:26-0500 Diastolic blood pressure 72 mm[Hg] Tabatha IQBAL Work Phone: [facility] 02-15-2024 14:26-0500 Systolic blood pressure 108 mm[Hg] Tabatha [place] PA Work Phone: [facility] 01-27-2024 15:40-0500 Body weight 87.09 kg Slim Sudheer DO Work Phone: [facility] 01-27-2024 15:40-0500 Diastolic blood pressure 58 mm[Hg] Slim Sudheer DO Work Phone: [facility] 01-27-2024 15:40-0500 Systolic blood pressure 110 mm[Hg] Slim Sudheer DO Work Phone: [facility] 01-13-2024 10:15-0500 Body weight 83.83 kg Tabatha Mago PA Work Phone: [facility] 01-13-2024 10:15-0500 Diastolic blood pressure 56 mm[Hg] Tabatha Kay PA Work Phone: [facility] 01-13-2024 10:15-0500 Systolic blood pressure 100 mm[Hg] Tabatha Kay PA Work Phone: [facility] 12-23-2023 15:41-0500 Body weight 83.01 kg Slim Sudheer DO Work Phone: [facility] 12-23-2023 15:41-0500 Diastolic blood pressure 68 mm[Hg] Slim Sudheer DO Work Phone: [facility] 12-23-2023 15:41-0500 Systolic blood pressure 110 mm[Hg] Slim Sudheer DO Work Phone: [facility] 11-23-2023 15:29-0400 Body weight 79.83 kg Tabatha Kay PA Work Phone: [facility] 11-23-2023 15:29-0400 Diastolic blood pressure 64 mm[Hg] Tabatha Mago PA Work Phone: [facility] 11-23-2023 15:29-0400 Systolic blood pressure 118 mm[Hg] Tabatha Kay PA Work Phone: [facility] 10-26-2023 09:35-0400 Body weight 77.02 kg Slim Sudheer DO Work Phone: [facility] 10-26-2023 09:35-0400 Diastolic blood pressure 58 mm[Hg] Slim Sudheer DO Work Phone: [facility] 10-26-2023 09:35-0400 Systolic blood pressure 110 mm[Hg] Slim Sudheer DO Work Phone: [facility] Encounters Encounter Date Encounter Type Care Provider Facility Start: 03-08-2024 End: 03-08-2024 Bamboo flowsheet Tabatha IQBAL Work Phone: [facility] Start: 03-08-2024 End: 03-08-2024 Bamboo flowsheet Tabatha IQBAL Work Phone: [facility] Start: 03-08-2024 End: 03-08-2024 flow sheet Tabatha IQBAL Work Phone: [facility] Comment on above: Third trimester preg raj; 36 weeks gestation of Start: 02-29-2024 End: 02-29-2024 flow sheet Slim Sudheer DO Work Phone: [facility] Comment on above: Third trimester preg raj; 35 weeks gestation of Start: 02-29-2024 End: 02-29-2024 ambulatory SLIM SUDHEER Not Available Start: 02-29-2024 End: 02-29-2024 Bamboo flowsheet Slim Sudheer DO Work Phone: [facility] Start: 02-29-2024 End: 02-29-2024 Bamboo flowsheet Slim Sudheer DO Work Phone: [facility] Start: 02-15-2024 End: 02-15-2024 flow sheet Tabatha IQBAL Work Phone: [facility] Comment on above: 33 weeks gestation o f ; Third trimester Start: 02-15-2024 End: 02-15-2024 ambulatory TABATHA KAY Not Available Start: 02-15-2024 End: 02-15-2024 Bamboo flowsheet Tabatha IQBAL Work Phone: [facility] Start: 02-15-2024 End: 02-15-2024 Bamboo flowsheet Tabatha IQBAL Work Phone: [facility] Start: 01-27-2024 End: 01-27-2024 flow sheet Slim Sudheer DO Work Phone: [facility] Comment on above: Third trimester preg raj; 30 weeks gestation of Start: 01-27-2024 End: 01-27-2024 ambulatory SLIM SUDHEER Not Available Start: 01-27-2024 End: 01-27-2024 Bamboo flowsheet Slim Sudheer DO Work Phone: [facility] Start: 01-27-2024 End: 01-27-2024 Bamboo flowsheet Slim Sudheer DO Work Phone: [facility] Start: 01-13-2024 End: 01-13-2024 Bamboo flowsheet Tabatha IQBAL Work Phone: [facility] Start: 01-13-2024 End: 01-13-2024 Bamboo flowsheet Tabatha IQBAL Work Phone: [facility] Start: 01-13-2024 End: 01-13-2024 flow sheet Tabatha IQBAL Work Phone: [facility] Comment on above: 28 weeks gestation o f ; Third trimester Start: 01-13-2024 End: 01-13-2024 ambulatory TABATHA KAY Not Available Start: 01-07-2024 End: 01-07-2024 Clinisync Result Encounter Slim Sudheer DO Work Phone: [facility] Unsolicited Start: 01-07-2024 End: 01-07-2024 Clinisync Result Encounter Slim Sudheer DO Work Phone: [facility] Start: 12-23-2023 End: 12-23-2023 flow sheet Slim Sudheer DO Work Phone: [facility] Comment on above: Low-lying placenta; Second trimester ; 25 weeks gestation of ; Diabetes mellitus screening Start: 12-23-2023 End: 12-23-2023 ambulatory SLIM SUDHEER Not Available Start: 12-23-2023 End: 12-23-2023 Bamboo flowsheet Slim Sudheer DO Work Phone: [facility] Start: 12-23-2023 End: 12-23-2023 Bamboo flowsheet Slim Sudheer DO Work Phone: [facility] Start: 11-23-2023 End: 11-23-2023 flow sheet Tabatha Kay PA Work Phone: [facility] Comment on above: Second trimester pre gnancy; 21 weeks gestation of Start: 11-23-2023 End: 11-23-2023 ambulatory TABATHA KAY Not Available Start: 11-23-2023 End: 11-23-2023 Clinisync Result Encounter Slim Sudheer DO Work Phone: [facility] Unsolic[facility] Start: 11-23-2023 End: 11-23-2023 Clinisync Result Encounter Slim Sudheer DO Work Phone: [facility]solic[facility] Start: 10-26-2023 End: 10-26-2023 Bamboo flowsheet Slim Sudheer DO Work Phone: [facility] Start: 10-26-2023 End: 10-30-2023 Clinisync Result Encounter Slim Sudheer DO Work Phone: [facility] Unsolicited Start: 10-26-2023 End: 10-30-2023 Clinisync Result Encounter Slim Sudheer DO Work Phone: [facility]solic[facility] Start: 10-26-2023 End: 10-27-2023 External Result Encounter Slim Sudheer DO Work Phone: [facility]solic[facility] Start: 10-26-2023 End: 10-26-2023 Patient encounter procedure Slim Sudheer DO Work Phone: [facility] Start: 10-26-2023 End: 10-26-2023 Periodic preventive med est patient 18-39 yrs Slim Sudheer DO Work Phone: [facility] Comment on above: 17 weeks gestation o f ; Well woman exam with routine gynecological exam; Exposure to STD; Vaginal discharge; Screening, , for anatomic survey Start: 10-26-2023 End: 10-26-2023 ambulatory SLIM SUDHEER Not Available Start: 10-01-2023 End: 10-01-2023 ambulatory SLIM SUDHEER Not Available Start: 11-01-2018 End: 11-01-2018 Patient encounter procedure NONE LISTED REQUEST Facility: Procedures Date Procedure Procedure Detail Performing Clinician Start: 03-08-2024 Urnls dip stick/tabl et rgnt non-auto w/o micrscp Slim Sudheer DO Work Phone: Start: 02-29-2024 Urnls dip stick/tabl et rgnt non-auto w/o micrscp Slim Sudheer DO Work Phone: Start: 02-15-2024 Urnls dip stick/tabl et rgnt non-auto w/o micrscp Tabatha IQBAL Work Phone: Start: 01-27-2024 Urnls dip stick/tabl et rgnt non-auto w/o micrscp Slim Sudheer DO Work Phone: Start: 01-13-2024 Urnls dip stick/tabl et rgnt non-auto w/o micrscp Tabatha IQBAL Work Phone: Start: 01-07-2024 ALL CBC WITH AUTO DIFF Slim Sudheer DO Work Phone: Start: 12-23-2023 Urnls dip stick/tabl et rgnt non-auto w/o micrscp Slim Sudheer DO Work Phone: Start: 11-23-2023 Urnls dip stick/tabl et rgnt non-auto w/o micrscp Tabatha IQBAL Work Phone: Start: 11-23-2023 ALL CBC WITH AUTO DIFF Slim Sudheer DO Work Phone: Start: 10-26-2023 Urnls dip stick/tabl et rgnt non-auto w/o micrscp Slim Sudheer DO Work Phone: Start: 10-26-2023 IGP,APTIMA HPV,AGE GDLN Slim Sudheer DO Work Phone: Start: 10-26-2023 Microscopic observat ion [Identifier] in Cervix by Cyto stain Slim Sudheer DO Work Phone: Start: 10-26-2023 URETHRITIS/DISCHARGE PLUS VAGINITIS (HTRX) Slim Sudheer DO Work Phone: Plan of Treatment Date Care Activity Detail Author Start: 10-25-2028 Screening for malign ant neoplasm of cervix [facility] Start: 03-08-2024 End: 03-08-2025 CULTURE, GROUP B STREP WITH SUSCEPTIBLITY CULTURE, GROUP B STREP WITH SUSCEPTIBLITY Lab Routine Third trimester Expected: 03/08/2024, Expires: 03/08/2025 [facility] Work Phone: Comment on above: Expected: 03/08/2024 , Expires: 03/08/2025 Start: 03-08-2024 End: 03-08-2024 Patient encounter procedure [facility] Comment on above: Arrived Start: 02-29-2024 End: 02-29-2024 Patient encounter procedure 02/29/2024 2:30 PM EST Routine [facility] [address] [address] Slim Willard, DO [address] [place] [address] Arrived [facility] Comment on above: Arrived Start: 02-15-2024 End: 02-15-2024 Patient encounter procedure [facility] Comment on above: Arrived Start: 01-27-2024 End: 01-27-2024 Patient encounter procedure [facility] Comment on above: Arrived Start: 01-13-2024 End: 01-13-2024 Patient encounter procedure [facility] Comment on above: Arrived Start: 01-13-2024 End: 01-13-2024 Professional / ancillary services management 01/13/2024 9:30 AM EST Ancillary Procedure [facility] [address] [place] [id number] [facility] Start: 12-23-2023 End: 12-23-2023 Patient encounter procedure [facility] Comment on above: Low-lying placenta Start: 12-23-2023 End: 12-22-2024 CBC panel - Blood by Automated count CBC Lab Routine Diabetes mellitus screening Expected: 12/23/2023 (Approximate), Expires: 12/22/2024 [facility] Comment on above: Expected: 12/23/2023 (Approximate), Expires: 12/22/2024 Start: 12-23-2023 End: 12-22-2024 Measurement of glucose 1 hour after glucose challenge for glucose tolerance test Glucose tolerance, 1 hour Lab Routine Diabetes mellitus screening Expected: 12/23/2023 (Approximate), Expires: 12/22/2024 [facility] Comment on above: Expected: 12/23/2023 (Approximate), Expires: 12/22/2024 Start: 12-23-2023 End: 12-22-2024 US for US OB PLACENTA W US OB TRANSVAGINAL Imaging Routine Low-lying placenta Expected: 12/23/2023 (Approximate), Expires: 12/22/2024 [facility] Work Phone: Comment on above: Expected: 12/23/2023 (Approximate), Expires: 12/22/2024 Start: 11-23-2023 End: 11-23-2023 Patient encounter procedure 11/23/2023 3:30 PM EDT Routine [facility] [address] [place] [phone] Tabatha Kay PA [address] [place], [place] [id number] [facility] Start: 11-16-2023 End: 11-16-2023 Professional / ancillary services management 11/16/2023 10:30 AM EDT Ancillary Procedure [facility] [address] [id number] [facility] Start: 10-26-2023 End: 11-25-2023 Alpha fetoprotein, maternal Alpha fetoprotein, maternal Lab Routine 17 weeks gestation of Expected: 10/26/2023 (Approximate), Expires: 11/25/[address] [facility] Comment on above: Expected: 10/26/2023 (Approximate), Expires: 11/25/2023 Start: 10-26-2023 End: 10-25-2024 US for US OB ANATOMY SINGLE W US OB CERVICAL LENGTH Imaging Routine Screening, , for anatomic survey Expected: 10/26/2023 (Approximate), Expires: 10/25/[address] [facility] Comment on above: Expected: 10/26/2023 (Approximate), Expires: 10/25/2024 Start: 10-26-2023 End: 10-26-2023 Patient encounter procedure 10/26/2023 9:20 AM EDT Routine [facility] [address] [address] Slim Willard DO [address] [place] [address] [place] [address] Arrived [facility] Comment on above: Arrived Start: 10-18-2023 Influenza vaccination Influenza Vacc ine (#1) [facility] CHLAMYDIA TRACHOMATI S (GENITO/STI) CHLAMYDIA TRACHOMATIS (GENITO/STI) Lab Routine Exposure to STD Ordered: 10/26/[address] [facility] Comment on above: Ordered: 10/26/2023 Cytology Cervical or vaginal smear or scraping study Pap Smear Pathology and Cytology Routine Well woman exam with routine gynecological exam Ordered: 10/26/[address] [facility] Work Phone: Comment on above: Ordered: 10/26/2023 Human papilloma viru s DNA [Presence] in Unspecified specimen by Probe with amplification HPV DNA probe, amplified Microbiology Routine Well woman exam with routine gynecological exam Ordered: 10/26/[address] [facility] Comment on above: Ordered: 10/26/2023 Neisseria gonorrhoea e DNA [Presence] in Unspecified specimen by DIPAK with probe detection Neisseria gonorrhea DNA probe, direct Lab Routine Exposure to STD Ordered: 10/26/[address] [facility] Comment on above: Ordered: 10/26/2023 SURESWAB(R) ADVANCED VAGINITIS PLUS, TMA SURESWAB(R) ADVANCED VAGINITIS PLUS, TMA Pathology and Cytology Routine Vaginal discharge Ordered: 10/26/[address] [facility] Comment on above: Ordered: 10/26/2023 Payers Date Payer Category Payer Private Health Insurance [employer] [id number] 2023 Unknown [employer] [id number] 2023-Present [address] [id number] 2023 Unknown [id number] 1990 Unknown [id number] [id number]. 2.593 1990 Unknown [id number] [id number]. 2.1259 1990 Unknown [id number] [id number]. 2.1259 1992 Unknown [id number] [id number]. 2.1259 1992 Unknown [id number] [id number]. 2.1259 1992 Unknown [id number] [id number]. 2.1259 1992 Unknown [id number] [id number]. 2.1259 1992 Unknown [id number] [id number]. 2.9 1990 Unknown [id number] [id number]. 2.1259 1957 Self-pay [id number] Social History Date Type Detail Facility Start: 10-01-2023 Tobacco smoking stat [facility] [facility] Never smoked tobacco [facility] Start: 10-01-2023 Tobacco use and exposure Smoke less tobacco non-user [facility] Start: 10-26-2023 End: 03-08-2024 Alcoholic beverage intake Lifetime non-drinker (finding) [facility] Start: 10-01-2023 History of Social function [facility] Start: 10-01-2023 Tobacco use panel [facility] Start: 07-12-2023 [facility] Start: 1990 Sex assigned at Not on file [facility] Clinical Notes 10-26-2023 to 03-08-2024 RASHEED Rivera - 03/08/2024 10:50 AM Dana Montero, SILAS - 02/29/2024 2:30 PM Brisa Ramos LPN - 02/15/2024 2:10 PM Umer Recinos SPECIAL DELIVERY MESSENGER - 01/27/2024 3:00 PM EST Note Date & Type Note Facility 03-08-2024 History of Presen t illness Narrative Reason [...] PROBLEMS Active Ambulatory Problems Diagnosis Date Noted 33 weeks gestation of 02/15/2024 Third trimester 02/15/2024 Resolved Ambulatory Problems Diagnosis Date Noted No [...] Exam Constitutional: Appearance: Normal appearance. She is well-developed and normal weight. HENT: Head: Normocephalic. Cardiovascular: Rate and Rhythm: Normal rate and regular rhythm. Pulses: Normal pulses. Pulmonary: Effort: Pulmonary effort is normal. Breath sounds: Normal breath sounds. Abdominal: General: Bowel sounds are normal. There is no distension. Palpations: Abdomen is soft. Tenderness: There is no abdominal tenderness. There is no guarding or rebound. Musculoskeletal: General: No swelling. Normal range of motion. Right lower leg: No edema. Left lower leg: No edema. Neurological: General: No focal deficit present. Mental Status: She is alert and oriented to person, place, and time. Skin: General: Skin is warm and dry. Psychiatric: Mood and Affect: Mood normal. Behavior: Behavior normal. Thought Content: Thought content normal. Judgment: Judgment normal. Vitals and nursing note reviewed. Exam conducted with a hood maker present. Vitals: There is no height or weight on file to calculate BMI. BP: 120/74 Patient's last menstrual period was 06/28/2023. ASSESSMENT & PLAN ICD-10-CM 1. Third trimester Z34.93 CULTURE, GROUP B STREP WITH SUSCEPTIBLITY CULTURE, GROUP B STREP WITH SUSCEPTIBLITY CANCELED: CULTURE, GROUP B STREP WITH SUSCEPTIBLITY CANCELED: CULTURE, GROUP B STREP WITH SUSCEPTIBLITY 2. 36 weeks gestation of Z3A.36 POCT urinalysis dipstick manually resulted Patient is doing well but has complaints of being tired and having maternal discomfort due to . Patient verbalized frequent movement and was instructed to perform kick counts three times per day. labor precautions were given, LARC consent was signed/declined, and GBS was obtained. Cervical check was performed and patient is 0cm dilated. Orders Placed This Encounter Procedures CULTURE, GROUP B STREP WITH SUSCEPTIBLITY POCT urinalysis dipstick manually resulted Follow Up: Patient is to return to office in 1 week for routine OB appointment Documented by Cynthia Contreras LPN on behalf of: RASHEED Rivera documented in this encounter [facility] 02-29-2024 History of Presen t illness Narrative Reason [...] PROBLEMS Active Ambulatory Problems Diagnosis Date Noted 33 weeks gestation of 02/15/2024 Third trimester 02/15/2024 Resolved Ambulatory Problems Diagnosis Date Noted No [...] SYSTEMS Review of Systems: Review of Systems All other systems reviewed and are negative. OBJECTIVE Objective: Physical Exam Constitutional: Appearance: Normal [...] nursing note reviewed. Exam conducted with a hood maker present. Vitals: There is no height or weight on file to calculate BMI. BP: 120/70 Patient's last menstrual period was 06/28/2023. ASSESSMENT & PLAN ICD-10-CM 1. Third trimester Z34.93 2. 35 weeks gestation of Z3A.35 Return OB: Patient presents today for a routine obstetrics appointment. Patient is currently 35w1d . Patient states she is doing well but has complaints of being tired due to current . Patient has verbalizes frequent movement. labor precautions was discussed/given and patient was instructed to perform kick counts three times a day. Follow Up: Patient is to return to office in 1 week for routine OB appointment. Documented by Kathy Montero MA on behalf of: Slim Willard DO documented in this encounter [facility] 02-15-2024 History of Presen t illness Narrative Reason for Appointment: Patient ID: Lizz Zacarias is a 33 y.o. female who presents for No chief complaint on file. Patient presents today for Return OB appointment. MEDICATIONS Current Outpatient Medications Medication Instructions ondansetron ODT (Zofran-ODT) 4 MG disintegrating tablet DISSOLVE 1 TABLET ON THE TONGUE EVERY 6 HOURS NEEDED FOR NAUSEA AND VOMITING ALLERGIES No Known Allergies PROBLEMS Active Ambulatory Problems Diagnosis Date Noted 33 weeks gestation of 02/15/2024 Third trimester 02/15/2024 Resolved Ambulatory Problems Diagnosis Date Noted No [...] SYSTEMS Review of Systems: Review of Systems All other systems reviewed and are negative. OBJECTIVE Objective: Physical Exam Constitutional: Appearance: Normal [...] nursing note reviewed. Exam conducted with a hood maker present. Vitals: There is no height or weight on file to calculate BMI. BP: Patient's last menstrual period was 06/28/2023. ASSESSMENT & PLAN ICD-10-CM 1. 33 weeks gestation of Z3A.33 2. Third trimester Z34.93 Patient presents today for a routine obstetrics appointment. Patient is currently 33w1d with a Estimated Date of Delivery: 04/03/24. Patient return to clinic in 2 weeks for routine OB appointment. Documented by Dede Ramos LPN on behalf of: RASHEED Rivera documented in this encounter [facility] 01-27-2024 History of Presen t illness Narrative Reason [...] nursing note reviewed. Exam conducted with a hood maker present. Vitals: There is no height or weight on file to calculate BMI. BP: 110/58 Patient's last menstrual period was 06/28/2023. ASSESSMENT & PLAN ICD-10-CM 1. Third trimester Z34.93 POCT urinalysis dipstick manually resulted 2. 30 weeks gestation of Z3A.30 Return OB: Patient presents today for a routine obstetrics appointment. Patient is currently 30w4d . Patient states she is doing well but has complaints of being tired due to current . Patient has verbalizes frequent movement. labor precautions was discussed/given and patient was instructed to perform kick counts three times a day. Orders Placed This Encounter Procedures POCT urinalysis dipstick manually resulted Follow Up: Patient is to return to office in 2 week for routine OB appointment. Documented by Fanny Recinos LPN on behalf of: Slim Willard DO documented in this encounter [facility] 01-13-2024 History of Presen t illness Narrative Reason for Appointment: Patient ID: Lizz Zacarias is a 33 y.o. female who presents for No chief complaint on file. Patient presents today for Return OB appointment. [...] SYSTEMS Review of Systems: Review of Systems All other systems reviewed and are negative. OBJECTIVE Objective: Physical Exam Constitutional: Appearance: Normal [...] weight on file to calculate BMI. BP: 100/56 Patient's last menstrual period was 06/28/2023. ASSESSMENT & PLAN ICD-10-CM 1. 28 weeks gestation of Z3A.28 POCT urinalysis dipstick manually resulted 2. Third trimester Z34.93 POCT urinalysis dipstick manually resulted Return OB: Patient presents today for a routine obstetrics appointment. Patient is currently 28w3d . Patient states she is doing well but has complaints of being tired due to current . Patient has verbalizes frequent movement. Patient with vasovagal episode during ultrasound today. Vital signs stable and feeling better after p.o. fluids and no further complaints. Orders Placed This Encounter Procedures POCT urinalysis dipstick manually resulted Follow Up: Patient is to return to office in 2 week for routine OB appointment. Documented by RASHEED Rivera on behalf of: RASHEED Rivera documented in this encounter [facility] 12-23-2023 History of Presen t illness Narrative [...] nursing note reviewed. Exam conducted with a hood maker present. Vitals: There is no height or [...] Slim Willard DO documented in this encounter [facility] 11-23-2023 History of Presen t illness Narrative [...] of: RASHEED Rivera documented in this encounter [facility] 10-26-2023 History of Presen t illness Narrative Reason for Appointment: Patient ID: Lizz Zacarias is a 33 y.o. female who presents for Routine Visit Patient presents today for Annual Exam. and Return OB appointment. MEDICATIONS Current Outpatient Medications Medication Instructions ondansetron (ZOFRAN) 4 mg, Oral, Every 6 hours PRN, Take 1 tablet by mouth every 6 hours as needed for nausea. ALLERGIES No Known Allergies PROBLEMS Active Ambulatory [...] SYSTEMS Review of Systems: Review of Systems All other systems reviewed and are negative. OBJECTIVE Objective: Physical Exam Constitutional: Appearance: Normal appearance. She is well-developed. Genitourinary: Vulva normal. Breasts: Breasts are soft. Right: Normal. Left: Normal. Cardiovascular: Rate and Rhythm: Normal rate and [...] nursing note reviewed. Exam conducted with a hood maker present. Vitals: There is no height or weight on file to calculate BMI. BP: 110/58 Patient's last menstrual period was 06/28/2023. ASSESSMENT & PLAN ICD-10-CM 1. 17 weeks gestation of Z3A.17 POCT urinalysis dipstick manually resulted Alpha fetoprotein, maternal Alpha fetoprotein, maternal 2. Well woman exam with routine gynecological exam Z01.419 Pap Smear HPV DNA probe, amplified 3. Exposure to STD Z20.2 CHLAMYDIA TRACHOMATIS (GENITO/STI) Neisseria gonorrhea DNA probe, direct 4. Vaginal discharge N89.8 SURESWAB(R) ADVANCED VAGINITIS PLUS, TMA 5. Screening, , for anatomic survey Z36.89 US OB ANATOMY SINGLE W US OB CERVICAL LENGTH Return OB/Annual Exam: Patient presents today for an annual exam/routine obstetrics appointment. Patient is currently 17w1d . Patient is doing well and states she has no complaints. Pap/cultures was obtained without difficulty and patient was given [facility] order to have obtained. New OB: Patient presents today for 1st time obstetrics appointment with provider. Patient is currently 17w1d . Patients history has been reviewed in great detail including any potential risks. Patient stated she currently has no complaints. Expectations throughout regarding labs, ultrasounds, and appointments have been discussed with the patient in detail. It was reiterated that the patient is to drink 6-8 glasses of water a day, eat 6 small meals a day, do not consume raw or undercooked meat, and stay away from [facility]. Patient has been consulted regarding any further do's and don'ts of . Patient voiced understanding and all questions and concerns were answered. Orders Placed This Encounter Procedures HPV DNA probe, amplified US OB ANATOMY SINGLE W US OB CERVICAL LENGTH CHLAMYDIA TRACHOMATIS (GENITO/STI) Neisseria gonorrhea DNA probe, direct Alpha fetoprotein, maternal POCT urinalysis dipstick manually resulted Follow Up: Patient is to return to our office in 4 weeks for routine OB appointment Documented by Dede Ramos LPN on behalf of: Slim Willard DO documented in this encounter [facility] Evaluation note Diagnosis Second trimester state, incidental 21 weeks gestation of documented [facility]* Diagnosis Low-lying placenta Hemorrhage from placenta previa, unspecified as to episode of care Second trimester state, incidental 25 weeks gestation of Diabetes mellitus screening Screening for diabetes mellitus documented [facility]* Diagnosis 28 weeks gestation of Third trimester state, incidental [facility]* Diagnosis Third trimester state, incidental 30 weeks gestation of [facility]* Diagnosis 17 weeks gestation of Well woman exam with routine gynecological exam Routine gynecological examination Exposure to STD Vaginal discharge Leukorrhea, not specified as infective Screening, , for anatomic survey Encounter for anatomic survey [facility] Diagnosis 33 weeks gestation of Third trimester state, incidental [facility] Diagnosis Third trimester state, incidental 35 weeks gestation of documented [facility]* Diagnosis Third trimester state, incidental 36 weeks gestation of documented in this encounter [facility] Summary Purpose Family History No Family History Records FoundNo Family History Records Found Advance Directives No Advanced Directives Records FoundNo Advanced Directives Records Found Additional Source Comments INFORMATION SOURCE (unrecogn ized section and content) DATE CREATED AUTHOR 11/15/2018 [facility] DATE CREATED AUTHOR AUTHOR'S ORGANIZ ATION 03/03/2024 [facility] [employer] Care Teams (unrecognized sec tion and content) Physical Therapist Technician Relationship Specialty Start Date End Date Burke Dennis MD [address] [place] [address] (Fax) PCP - [facility] 05/18/23 Physical Therapist Technician Relationship Specialty Start Date End Date Burke Dennis MD [address] [place] [address] (Fax) PCP - [facility] 05/18/23 Reason for Visit (unrecogniz ed section [...] BE BASED ON THE PRIMARY CLINICAL RECORDS. [facility]. provides no warranty or guarantee of the accuracy or completeness of information in this document.
--- OUTSIDE RECORDS SUMMARY | 2024-03-09 09:47 | XMS_ITS | CCD ---
Author Organization [facility] Care Team Providers Care Schedule Clerk Name Role Phone REQUEST, NONE LISTED Primary Care Unavailable VICTORIANO GR Consulting Unavailable ILEANA LOVE Admitting Unavailable ILEANA LOVE Attending Unavailable ILEANA LOVE Consulting Unavailable VINAY EMMANUEL Consulting Unavailable STACEY HARRIS Consulting Unavailable DAVINA FREY Consulting Unavailable Burke Dennis MD Unavailable Unavailable Primary Care Provider UnavailSLIM Moulton Attending Unavailable TABATHA KAY Attending Unavailable SLIM WILLARD Attending Unavailable ATBATHA KAY Attending Unavailable SILM WILLARD Attending Unavailable TABATHA KYA Attending Unavailable SLIM WILLARD Attending Unavailable Medications [...] UA Negative Negative - 4(70) +++ mg/dL [facility] Work Phone: Blood, UA Negative Negative - 50 Ramiro/mcL [facility] Work Phone: Clarity, UA Clear [facility] [employer] Work Phone: Color, UA Yellow [facility] [employer] Work Phone: Glucose, UA Negative Negative - 2000(110) ++++ mg/dL [facility] Work Phone: Interpretation and review of laboratory results Normal [facility] [employer] re Work Phone: Ketones, UA Negative Negative - 160(16) ++++ mg/dL [facility] Work Phone: Leukocytes, UA Negative Negative - 500+++ Gilmer/mcL [facility] Work Phone: Nitrite, UA Negative Negative - Positive [facility] Work Phone: pH, UA 5.5 5 - 9 [facility] Work Phone: Protein, UA Negative Negative - 1999(20) ++++ mg/dL [facility] Work Phone: Spec Grav, UA 1.025 1 - 1.03 [facility] Health care Work Phone: Urobilinogen, UA 1.0 0.2 - 12 mg/dL [facility] PATHE[employer] Work Phone: [facility] [employer] Work Phone: Urinalysis macro (dipstick) panel (U)on 02-29-2024 Bilirubin, UA Negative Negative - 4(70) +++ mg/dL [facility] Blood, UA Negative Negative - 50 Ramiro/mcL [facility] Clarity, UA Clear [facility] Color, UA Yellow [facility] Glucose, UA Negative Negative - 1999(110) ++++ mg/dL [facility] Interpretation and review of laboratory results Abnormal [facility] Ketones, UA Positive Negative - 160(16) ++++ mg/dL [facility] Comment on above: trace Leukocytes, UA Negative Negative - 500+++ Gilmer/mcL [facility] Nitrite, UA Negative Negative - Positive [facility] pH, UA 6 5 - 9 [facility] Protein, UA Positive Negative - 1999(20) ++++ mg/dL [facility] Comment on above: 30 mg Spec Grav, UA 1.03 1 - 1.03 [facility] Urobilinogen, UA 0.2 0.2 - 12 mg/dL [facility] Urinalysis macro (dipstick) panel (U)on 02-15-2024 Bilirubin, UA Negative Negative - 4(70) +++ mg/dL [facility] Blood, UA Negative Negative - 50 Ramiro/mcL [facility] Clarity, UA Clear [facility] Color, UA Yellow [facility] Glucose, UA Negative Negative - 1999(110) ++++ mg/dL [facility] Interpretation and review of laboratory results Abnormal [facility] Ketones, UA Negative Negative - 160(16) ++++ mg/dL [facility] Leukocytes, UA Negative Negative - 500+++ Gilmer/mcL [facility] Nitrite, UA Negative Negative - Positive [facility] pH, UA 7 5 - 9 [facility] Protein, UA Few Negative - 1999(20) ++++ mg/dL [facility] Comment on above: 30mg/dL Spec Grav, UA 1.025 1 - 1.03 [facility] Urobilinogen, UA 0.2 0.2 - 12 mg/dL [facility] Urinalysis macro (dipstick) panel (U)on 01-27-2024 Bilirubin, UA Negative Negative - 4(70) +++ mg/dL [facility] Blood, UA Negative Negative - 50 Ramiro/mcL [facility] Clarity, UA Clear [facility] Color, UA Yellow [facility] Glucose, UA Negative Negative - 1999(110) ++++ mg/dL [facility] Interpretation and review of laboratory results Normal [facility] Ketones, UA Negative Negative - 160(16) ++++ mg/dL [facility] Leukocytes, UA Negative Negative - 500+++ Gilmer/mcL [facility] Nitrite, UA Negative Negative - Positive [facility] pH, UA 5 5 - 9 [facility] Protein, UA Negative Negative - 1999(20) ++++ mg/dL [facility] Spec Grav, UA 1.01 1 - 1.03 [facility] Urobilinogen, UA 0.2 0.2 - 12 mg/dL [facility] Urinalysis macro (dipstick) panel (U)on 01-13-2024 Bilirubin, UA Negative Negative - 4(70) +++ mg/dL [facility] Blood, UA Negative Negative - 50 Ramiro/mcL [facility] Clarity, UA Clear [facility] Color, UA Yellow [facility] Glucose, UA Negative Negative - 1999(110) ++++ mg/dL [facility] Interpretation and review of laboratory results Normal [facility] Ketones, UA Negative Negative - 160(16) ++++ mg/dL [facility] Leukocytes, UA Negative Negative - 500+++ Gilmer/mcL [facility] Nitrite, UA Negative Negative - Positive [facility] pH, UA 7 5 - 9 [facility] Protein, UA Negative Negative - 1999(20) ++++ mg/dL [facility] Spec Grav, UA 1.015 1 - 1.03 [facility] Urobilinogen, UA 0.2 0.2 - 12 mg/dL [facility] ALL CBC WITH AUTO DIFFon BASOPHILS ABSOLUTE AUTO 0 [facility] Basophils/100 WBC (Bld) 0.4 % 0.2 - 2.0 % [facility] Eosinophils/100 WBC (Bld) 0.6 % Low 0.9 - 7.0 % [facility] Erythrocyte distribution width (RBC) [Ratio] 13 % 11.0 - 15.0 % [facility] Hematocrit (Bld) [Volume fraction] 34.2 % Low 36.0 - 48.0 % [facility] e Hemoglobin (Bld) [Mass/Vol] 11.8 g/dL Low 12.0 - 16.0 g/dL [facility] IMMATURE GRANULOCYTES ABS AUTO 0.04 High [facility] Immature granulocytes/100 WBC (Bld) 0.4 % 0.0 - 0.5 % [facility] Interpretation and review of laboratory results Abnormal [facility] re LYMPHOCYTES ABSOLUTE AUTO 1.9 [facility] Lymphocytes/100 WBC (Bld) 19.2 % Low 20.5 - 60.0 % [facility] MCH (RBC) [Entitic mass] 31.6 pg 26.7 - 34.0 pg [facility] MCHC (RBC) [Mass/Vol] 34.5 g/dL 29.9 - 35.2 g/dL [facility] MCV (RBC) [Entitic vol] 91.4 fL 81.0 - 99.0 fL [facility] MONOCYTES ABSOLUTE AUTO 0.6 [facility] Monocytes/100 WBC (Bld) 6 % 1.7 - 12.0 % [facility] NEUTROPHILS ABSOLUTE AUTO 7.3 High [facility] Neutrophils/100 WBC (Bld) 73.4 % 43.0 - 75.0 % [facility] Platelet mean volume (Bld) [Entitic vol] 9.1 fL Low 9.5 - 13.5 fL [facility] TBH EO # 0.1 [facility] PLT 231 [facility] TB RBC 3.74 Low [facility] TBH WBC 10 [facility] Urinalysis macro (dipstick) panel (U)on 12-23-2023 Bilirubin, UA Positive Negative - 4(70) +++ mg/dL [facility] Comment on above: small Blood, UA Negative Negative - 50 Ramiro/mcL [facility] Clarity, UA Clear [facility] re Color, UA Nadia [facility] Glucose, UA Negative Negative - 1999(110) ++++ mg/dL [facility] Interpretation and review of laboratory results Abnormal [facility] re Ketones, UA Positive Negative - 160(16) ++++ mg/dL [facility] Comment on above: trace Leukocytes, UA Negative Negative - 500+++ Gilmer/mcL [facility] Nitrite, UA Negative Negative - Positive [facility] pH, UA 5.5 5 - 9 [facility] e Protein, UA Trace Negative - 1999(20) ++++ mg/dL [facility] Spec Grav, UA 1.03 1 - 1.03 [facility] Urobilinogen, UA 0.2 0.2 - 12 mg/dL [facility] ALL CBC WITH AUTO DIFFon BASOPHILS ABSOLUTE AUTO 0.0 [facility] Basophils/100 WBC (Bld) 0.3 % 0.2 - 2.0 % [facility] Eosinophils/100 WBC (Bld) 0.6 % Low 0.9 - 7.0 % [facility] Erythrocyte distribution width (RBC) [Ratio] 13.6 % 11.0 - 15.0 % [facility] Hematocrit (Bld) [Volume fraction] 33.7 % Low 36.0 - 48.0 % [facility] Hemoglobin (Bld) [Mass/Vol] 11.5 g/dL Low 12.0 - 16.0 g/dL [facility] IMMATURE GRANULOCYTES ABS AUTO 0.05 High [facility] Immature granulocytes/100 WBC (Bld) 0.5 % 0.0 - 0.5 % [facility] Interpretation and review of laboratory results Abnormal [facility] re LYMPHOCYTES ABSOLUTE AUTO 2.2 [facility] Lymphocytes/100 WBC (Bld) 22.0 % 20.5 - 60.0 % [facility] MCH (RBC) [Entitic mass] 30.9 pg 26.7 - 34.0 pg [facility] MCHC (RBC) [Mass/Vol] 34.1 g/dL 29.9 - 35.2 g/dL [facility] MCV (RBC) [Entitic vol] 90.6 fL 81.0 - 99.0 fL [facility] MONOCYTES ABSOLUTE AUTO 0.5 [facility] Monocytes/100 WBC (Bld) 5.3 % 1.7 - 12.0 % [facility] NEUTROPHILS ABSOLUTE AUTO 7.2 High [facility] Neutrophils/100 WBC (Bld) 71.3 % 43.0 - 75.0 % [facility] Platelet mean volume (Bld) [Entitic vol] 9.4 fL Low 9.5 - 13.5 fL [facility] TBH EO # 0.1 [facility] TB PLT 255 [facility] e TB RBC 3.72 Low [facility] TBH WBC 10.1 [facility] Urinalysis macro (dipstick) panel (U)on 11-23-2023 Bilirubin, UA Negative Negative - 4(70) +++ mg/dL [facility] Blood, UA Negative Negative - 50 Ramiro/mcL [facility] Clarity, UA Clear [facility] re Color, UA Yellow [facility] Glucose, UA Negative Negative - 1999(110) ++++ mg/dL [facility] Interpretation and review of laboratory results Abnormal [facility] re Ketones, UA Positive Negative - 160(16) ++++ mg/dL [facility] Comment on above: 40 Leukocytes, UA Trace Negative - 500+++ Gilmer/mcL [facility] Nitrite, UA Negative Negative - Positive [facility] pH, UA 7.0 5 - 9 [facility] Protein, UA Negative Negative - 1999(20) ++++ mg/dL [facility] Spec Grav, UA 1.030 1 - 1.03 [facility] Urobilinogen, UA 0.2 0.2 - 12 mg/dL [facility] IGP,APTIMA HPV,AGE GDLNon AGE GDLN ACOG TESTING Note . [facility] Comment on above: TESTS RESULT FLAG UN ITS REF RANGE LAB Clinician Provided Cytology Information Source.............Cervix No. of containers..01 ThinPrep Vial Age Rico JARQUIN Laura... 32 FLAG LEGEND: L-Low Normal,H-High Normal,LL-Alert Low,HH-Alert High <-Panic Low,>-Panic High,A-Abnormal,AA-Critical Abnormal Performed at: 01 =G [address] [id number] Jen Correa MD, HPV APTIMA Positive Abnormal Negative [facility] e Comment on above: This nucleic acid am plification test detects fourteen high- risk HPV types (16,18,31,33,35,39,45,51,52,56,58,59,66,68) without differentiation. HPV GENOTYPE 16 Negative Negative [facility] GENOTYPE 18,45 Positive Abnormal Negative [facility] Comment on above: Performed at: =G - L [address] [id number] Senior Mobile Application Developer: Jen Correa MD, Phone: [phone] Performed at: [facility] [address] [id number] Senior Mobile Application Developer: Jen Correa MD, Phone: [phone] IGP, APTIMA HPV, RFX 16/18,45 Note . [facility] Comment on above: TESTS RESULT FLAG UN ITS REF RANGE LAB DIAGNOSIS: 02 NEGATIVE FOR INTRAEPITHELIAL LESION OR MALIGNANCY. FUNGAL ORGANISMS MORPHOLOGICALLY CONSISTENT WITH JOSE LUIS SPECIES ARE PRESENT. Specimen adequacy: 02 Satisfactory for evaluation. No endocervical component is identified. Performed by: 02 Stacey Nevarez Technical Marketing Consultant . 02 Note: Note 02 The Pap [...] <-Panic Low,>-Panic High,A-Abnormal,AA-Critical Abnormal Performed at: [address] [id number] Jen Correa MD, Interpretation and review of laboratory results Abnormal [facility] SPATULA-ALONE CERVIX [facility] URETHRITIS/DISCHARGE PLUS VA GINITIS (HTRX)on 10-27-2023 ATOPOBIUM VAGINAE 0.000 [facility] ATOPOBIUM VAGINAE Not detected [facility] BVAB 2,3 (BACTERIAL VAGINOSIS ASSOCIATED BACTERIA 2, 3); MOBILUNCUS SPP 0.000 [facility] BVAB 2,3 (BACTERIAL VAGINOSIS ASSOCIATED BACTERIA 2, 3); MOBILUNCUS SPP Not detected [facility] JOSE LUIS ALBICANS, PARAPSILOSIS, TROPICALIS 29.119 Abnormal [facility] JOSE LUIS ALBICANS, PARAPSILOSIS, TROPICALIS Detected Abnormal [facility] JOSE LUIS GLABRATA 0.000 [facility] JOSE LUIS GLABRATA Not detected [facility] JOSE LUIS KRUSEI 0.000 [facility]alt [facility] JOSE LUIS KRUSEI Not detected [facility] CHLAMYDIA TRACHOMATIS 0.000 [facility] CHLAMYDIA TRACHOMATIS Not detected [facility] GARDNERELLA VAGINALIS 0.000 [facility] GARDNERELLA VAGINALIS Not detected [facility] Interpretation and review of laboratory results Abnormal [facility] MEGASPHAERA (TYPES 1, 2) 0.000 [facility] MEGASPHAERA (TYPES 1, 2) Not detected [facility] MYCOPLASMA GENITALIUM 0.000 [facility] MYCOPLASMA GENITALIUM Not detected [facility] NEISSERIA GONORRHOEAE 0.000 [facility] NEISSERIA GONORRHOEAE Not detected [facility] TRICHOMONAS VAGINALIS 0.000 [facility] TRICHOMONAS VAGINALIS Not detected [facility] Urinalysis macro (dipstick) panel (U)on 10-26-2023 Bilirubin, UA Negative Negative - 4(70) +++ mg/dL [facility] Blood, UA Negative Negative - 50 Ramiro/mcL [facility] Clarity, UA Clear [facility] Color, UA Yellow [facility] Glucose, UA Negative Negative - 1999(110) ++++ mg/dL [facility] Interpretation and review of laboratory results Abnormal [facility] Ketones, UA Negative Negative - 160(16) ++++ mg/dL [facility] Leukocytes, UA Positive Negative - 500+++ Gilmer/mcL [facility] Comment on above: small Nitrite, UA Negative Negative - Positive [facility] pH, UA 8.5 5 - 9 [facility] Protein, UA Negative Negative - 1999(20) ++++ mg/dL [facility] Spec Grav, UA 1.020 1 - 1.03 [facility] Urobilinogen, UA 0.2 0.2 - 12 mg/dL [facility] ABO AND RH TYPEon 11-01-2018 ABO and Rh group Nom (Bld) ABO Rh Typing A Rh Positive Normal [facility] Comment on above: Performed By: #### A MEI #### [facility] [address] [place] [address] Bartolo Escobedo CARDIAC JUDITH ADMITon 019 CK [Catalytic activity/Vol] 38 U/L Normal 30-135 [facility] Comment on above: Performed By: #### C MP, CMADM, PREGQNT #### [facility] [address] [place] [address] Bartolo Escobedo CK.MB [Mass/Vol] ng/mL Normal <=2.37 [facility] Comment on above: Performed By: #### C MP, CMADM, PREGQNT #### [facility] [address] [place] [address] Bartolo Escobedo INR Coag (Bld) [Relative time] SEE BELOW Normal [facility] Comment on above: Result Comment: <0.0 34 ng/ml NEGATIVE 0.034-0.119 INDETERMINATE 0.120 AMI CUT OFF Performed By: #### C MP, CMADM, PREGQNT #### [facility] [address] [place] [address] Bartolo Escobedo MADELINE 16.0 ng/mL Normal <=61.5 [facility] Comment on above: Performed By: #### C MP, CMADM, PREGQNT #### [facility] [address] [place], [place] [id number] Bartolo Escobedo TROP <0.017 Normal <=0.034 [facility] Comment on above: Performed By: #### C MP, CMADM, PREGQNT #### [facility] [address] [place], [place] [id number] Bartolo Escobedo CBC AUTO DIFFon 11-01-2018 Basophils (Bld) [#/Vol] 0.0 103/ul Normal 0.0-0.1 [facility] Comment on above: Performed By: #### C BC #### [facility] [address] [place], [place] [id number] Bartolo Escobedo Basophils/100 WBC (Bld) 0.2 % Normal 0.2-2.0 [facility] Comment on above: Performed By: #### C BC #### [facility] [address] [place], [place] [id number] Bartolo Fanny Eosinophils (Bld) [#/Vol] 0.0 103/ul Normal 0.0-0.7 [facility] Comment on above: Performed By: #### C BC #### [facility] [address] [place] [address] Bartolo Fanny Eosinophils/100 WBC (Bld) 0.2 % Critically low 0.9-7.0 [facility] Comment on above: Performed By: #### C BC #### [facility] [address] [place] [address] Bartolo Fanny Erythrocyte distribution width (RBC) [Ratio] 12.7 % Normal 11.0-15.0 [facility] Comment on above: Performed By: #### C BC #### [facility] [address] [place] [address] Bartolo Fanny Hematocrit (Bld) [Volume fraction] 33.1 % Critically low 36.0-48.0 [facility] Comment on above: Performed By: #### C BC #### [facility] [address] [place] [address] Bartolo Fanny Hemoglobin (Bld) [Mass/Vol] 11.3 g/dL Critically low 12.0-16.0 [facility] Comment on above: Performed By: #### C BC #### [facility] [address] [place] [address] Bartolo Fanny IG # 0.03 10e3/ul Normal 0.00-0.03 [facility] Comment on above: Performed By: #### C BC #### [facility] [address] [place] [address] Bartolo Fanny IG % 0.2 % Normal 0.0-0.5 [facility] Comment on above: Performed By: #### C BC #### [facility] [address] [place] [address] Bartolo Fanny Lymphocytes (Bld) [#/Vol] 1.8 103/ul Normal 1.2-3.8 [facility] Comment on above: Performed By: #### C BC #### [facility] [address] [place] [address] Bartolo Fanny Lymphocytes/100 WBC (Bld) 13.9 % Critically low 20.5-60.0 [facility] Comment on above: Performed By: #### C BC #### [facility] [address] [place], [place] [id number] Bartolo Fanny MANUAL DIFF REQ NO Normal [facility] Comment on above: Performed By: #### C BC #### [facility] [address] [place], [place] [id number] Bartolo Fanny MCH (RBC) [Entitic mass] 29.7 pg Normal 26.7-34.0 [facility] Comment on above: Performed By: #### C BC #### [facility] [address] [place], [place] [id number] Bartolo Fanny MCHC (RBC) [Mass/Vol] 34.1 g/dL Normal 29.9-35.2 [facility] Comment on above: Performed By: #### C BC #### [facility] [address] [place], [place] [id number] Bartolo Fanny MCV (RBC) [Entitic vol] 87.1 fL Normal 81.0-99.0 [facility] Comment on above: Performed By: #### C BC #### [facility] [address] [place], [place] [id number] Bartolo Fanny Monocytes (Bld) [#/Vol] 0.4 103/ul Normal 0.3-0.8 [facility] Comment on above: Performed By: #### C BC #### [facility] [address] [place], [place] [id number] Bartolo Fanny Monocytes/100 WBC (Bld) 3.1 % Normal 1.7-12.0 [facility] Comment on above: Performed By: #### C BC #### [facility] [address] [place], [place] [id number] Bartolo Fanny Neutrophils (Bld) [#/Vol] 10.8 103/ul Critically high 1.4-6.5 [facility] Comment on above: Performed By: #### C BC #### [facility] [address] [place], [place] [address] Bartolo Fanny Neutrophils/100 WBC (Bld) 82.4 % Critically high 43.0-75.0 [facility] Comment on above: Performed By: #### C BC #### [facility] [address] [place] [address] Bartolo Escobedo Platelet mean volume (Bld) [Entitic vol] 10.4 fL Normal 9.5-13.5 [facility] Comment on above: Performed By: #### C BC #### [facility] [address] [place] [address] Bartolo Escobedo Platelets (Bld) [#/Vol] 255 103/ul Normal 150-450 [facility] Comment on above: Performed By: #### C BC #### [facility] [address] [place], [place] [id number] Bartolo Escobedo RBC (Bld) [#/Vol] 3.80 106/ul Critically low 4.20-5.40 [facility] Comment on above: Performed By: #### C BC #### [facility] [address] [place] [address] Bartolo Escobedo WBC (Bld) [#/Vol] 13.1 103/ul Critically high 4.0-11.0 [facility] Comment on above: Performed By: #### C BC #### [facility] [address] [place] [address] [address] C-SPINE WO CONon 11-02-[address] C-SPINE WO CON Patient: LIZZ ZACARIAS Exam Date: 11/01/2018 : 1990 Gender:F Ordering : RASHEED IQBAL Admission #: [id number] Family : DR VICTORIANO GR D.O. Order #: [id number] CLICK HERE TO VIEW EXAM RADIOLOGY REPORT [...] M.D. on 11/01/2018 at 15:02 Normal [facility] CT HEAD WO CONon 11-01-2018 CT HEAD WO CON Patient: LIZZ ZACARIAS Exam Date: 11/01/2018 : 1990 Gender:F Ordering : RASHEED IQBAL Admission #: [id number] Family : DR VICTORIANO GR D.O. Order #: [id number] CLICK HERE TO VIEW EXAM RADIOLOGY REPORT [...] M.D. on 11/01/2018 at 14:59 Normal [facility] PREG QUANT HCGon 11-01-2018 HCG QUANT 1500.00 mIU/mL Normal [facility] Comment on above: Performed By: #### C MP, CMADM, PREGQNT #### [facility] [address] [address] Bartolo Escobedo HCG RANGE SEE BELOW Normal [facility] Comment on above: Result Comment: 5-50 0-1 WEEK 40-300 1-2 WEEKS 100-1,000 2-3 WEEKS 500-6,000 3-4 WEEKS 5,000-200,000 1-2 MONTHS 10,000-100,000 2-3 MONTHS 3,000-50,000 2ND TRIMESTER 1,000-50,000 3RD TRIMESTER Performed By: #### C MP, CMADM, PREGQNT #### [facility] [address] [place], [place] [address] Bartolo Escobedo PROF 14(COMP METB)on 019 Albumin [Mass/Vol] 3.5 g/dL Normal 3.5-5.0 [facility] Comment on above: Performed By: #### C MP, CMADM, PREGQNT #### [facility] [address] [id number] Bartolo Fanny Albumin/Globulin [Mass ratio] 0.9 {ratio} Normal [facility] Comment on above: Performed By: #### C MP, CMADM, PREGQNT #### [facility] [address] [phone] Bartolo Fanny ALP [Catalytic activity/Vol] 43 U/L Normal 38-126 [facility] Comment on above: Performed By: #### C MP, CMADM, PREGQNT #### [facility] [address] [phone] Bartolo Fanny ALT [Catalytic activity/Vol] 12 U/L Normal 9-52 [facility] Comment on above: Performed By: #### C MP, CMADM, PREGQNT #### [facility] [address] [phone] Bartolo Fanny Anion gap [Moles/Vol] 13.8 mmol/L Normal [facility] Comment on above: Performed By: #### C MP, CMADM, PREGQNT #### [facility] [address] [phone] Bartolo Fanny AST [Catalytic activity/Vol] 12 U/L Critically low 14-36 [facility] Comment on above: Performed By: #### C MP, CMADM, PREGQNT #### [facility] [address] [phone] Bartolo Fanny Bilirubin Ql (U) 0.7 mg/dL Normal 0.2-1.3 [facility] Comment on above: Performed By: #### C MP, CMADM, PREGQNT #### [facility] [address] [phone] Bartolo Fanny Calcium [Mass/Vol] 8.7 mg/dL Normal 8.4-10.2 [facility] Comment on above: Performed By: #### C MP, CMADM, PREGQNT #### [facility] [address] [address] Bartolo Fanny Chloride [Moles/Vol] 104 mmol/L Normal 98-107 [facility] Comment on above: Performed By: #### C MP, CMADM, PREGQNT #### [facility] [address] [address] Bartolo Fanny CO2 [Moles/Vol] 22.7 mmol/L Normal 22.0-30.0 [facility] Comment on above: Performed By: #### C MP, CMADM, PREGQNT #### [facility] [address] [address] Bartolo Fanny Creatinine [Mass/Vol] 0.67 mg/dL Normal 0.52-1.04 [facility] Comment on above: Performed By: #### C MP, CMADM, PREGQNT #### [facility] [address] [place] [address] Bartolo Fanny EGFR-AF ST LUCIAN >60 Normal >=60 [facility] Comment on above: Performed By: #### C MP, CMADM, PREGQNT #### [facility] [address] [place] [address] Bartolo Fanny EGFR-NON AF ST LUCIAN >60 Normal >=60 [facility] Comment on above: Performed By: #### C MP, CMADM, PREGQNT #### [facility] [address] [id number] Bartolo Fanny Globulin (S) [Mass/Vol] 4.0 g/dL Normal [facility] Comment on above: Performed By: #### C MP, CMADM, PREGQNT #### [facility] [address] [address] Bartolo Fanny Glucose [Mass/Vol] 113 mg/dL Critically high 74-106 T [facility] Comment on above: Performed By: #### C MP, CMADM, PREGQNT #### [facility] [address] [address] Bartolo Fanny Potassium [Moles/Vol] 3.5 mmol/L Normal 3.4-5.0 [facility] Comment on above: Performed By: #### C MP, CMADM, PREGQNT #### [facility] [address] [place] [address] Bartolo Fanny Protein [Mass/Vol] 7.5 g/dL Normal 6.1-8.2 [facility] Comment on above: Performed By: #### C MP, CMADM, PREGQNT #### [facility] [address] [place] [address] Bartolo Fanny Sodium [Moles/Vol] 137 mmol/L Normal 137-145 [facility] Comment on above: Performed By: #### C MP, CMADM, PREGQNT #### [facility] [address] [place] [address] Bartolo Fanny Urea nitrogen [Mass/Vol] 10.0 mg/dL Normal 7.0-17.0 [facility] Comment on above: Performed By: #### C MP, CMADM, PREGQNT #### [facility] [address] [place] [address] Bartolo Fanny Urea nitrogen/Creatinine [Mass ratio] 14.9 mg/mg Normal [facility] Comment on above: Performed By: #### C MP, CMADM, PREGQNT #### [facility] [address] [place] [address] Bartolo Fanny PROTIMEon 11-01-2018 INR Coag (PPP) [Relative time] 1.02 {INR} Normal [facility] Comment on above: Performed By: #### P T, PTT #### [facility] [address] [place] [address] Bartolo Fanny PT Coag (PPP) [Time] PLEASE NOTE: NORMAL RANGE CHANGE 11-03-2013 DUE TO REAGENT LOT CHANGE Normal [facility] Comment on above: Performed By: #### P T, PTT #### [facility] [address] [place], [place] [address] Bartolo Fanny PT Coag (PPP) [Time] 10.6 s Normal 9.0-11.6 [facility] Comment on above: Performed By: #### P T, PTT #### [facility] [address] [place], [place] [address] Bartolo Fanny PT Coag (PPP) [Time] SEE BELOW Normal [facility] Comment on above: Result Comment: AKIL RED INR: 2.0 - 3.0 CONDITIONS NOT LISTED BELOW 2.5 - 3.5 FOR PROSTHETIC HEART VALVE REPLACEMENT 2.5 - 3.5 RECURRENT THROMBOSIS Performed By: #### P T, PTT #### [facility] [address] [place], [place] [address] Bartolo Fanny PTTon 11-01-2018 aPTT Coag (Bld) [Time] PLEASE NOTE: NORMAL RANGE CHANGE 01-10-2015 DUE TO REAGENT LOT CHANGE Normal [facility] Comment on above: Performed By: #### P T, PTT #### [facility] [address] [place], [place] [address] Bartolo Fanny aPTT Coag (Bld) [Time] 21.6 s Critically low 22.3-36.2 [facility] Comment on above: Performed By: #### P T, PTT #### [facility] [address] [place], [place] [address] Bartolo Fanny TYPE AND SCREENon 11-01-2018 TYPE AND SCREEN Negative Normal [facility] Comment on above: Performed By: #### P T, PTT #### [facility] [address] [place], [place] [address] Bartolo Fanny US PREG <14 WKSon 11-01-2018 US PREG <14 WKS Patient: LIZZ ZACARIAS Exam Date: 11/01/2018 : 1990 Gender:F Ordering : RASHEED IQBAL Admission #: [id number] Family : DR VICTORIANO GR D.O. Order #: [id number] CLICK HERE TO VIEW EXAM RADIOLOGY REPORT [...] Emmanuel M.D. on 11/01/2018 at 15:43 Normal [facility] Vital Signs Date Time Vital Sign Value Performing Clinician Kike altamirano 03-08-2024 11:50-0500 Body weight 91.54 kg Tabatha IQBAL Work Phone: [facility] 03-08-2024 11:50-0500 Diastolic blood pressure 74 mm[Hg] Tabatha IQBAL Work Phone: [facility] 03-08-2024 11:50-0500 Systolic blood pressure 120 mm[Hg] Tabatha IQBAL Work Phone: [facility] 02-29-2024 14:54-0500 Body weight 89.81 kg Slim Sudheer DO Work Phone: [facility] 02-29-2024 14:54-0500 Diastolic blood pressure 70 mm[Hg] Slim Sudheer DO Work Phone: [facility] 02-29-2024 14:54-0500 Systolic blood pressure 120 mm[Hg] Slim Sudheer DO Work Phone: [facility] 02-15-2024 14:26-0500 Body weight 88.81 kg Tabatha IQBAL Work Phone: [facility] 02-15-2024 14:26-0500 Diastolic blood pressure 72 mm[Hg] Tabatha IQBAL Work Phone: [facility] 02-15-2024 14:26-0500 Systolic blood pressure 108 mm[Hg] Tabatha Sheffield PA Work Phone: [facility] 01-27-2024 15:40-0500 Body weight 87.09 kg Slim Sudheer DO Work Phone: [facility] 01-27-2024 15:40-0500 Diastolic blood pressure 58 mm[Hg] Slim Sudheer DO Work Phone: [facility] 01-27-2024 15:40-0500 Systolic blood pressure 110 mm[Hg] Slim Sudheer DO Work Phone: [facility] 01-13-2024 10:15-0500 Body weight 83.83 kg Tabatha Mago PA Work Phone: [facility] 01-13-2024 10:15-0500 Diastolic blood pressure 56 mm[Hg] Tabatha Kay PA Work Phone: [facility] 01-13-2024 10:15-0500 Systolic blood pressure 100 mm[Hg] Tabatha Kay PA Work Phone: [facility] 12-23-2023 15:41-0500 Body weight 83.01 kg Slim Sudheer DO Work Phone: [facility] 12-23-2023 15:41-0500 Diastolic blood pressure 68 mm[Hg] Slim Sudheer DO Work Phone: [facility] 12-23-2023 15:41-0500 Systolic blood pressure 110 mm[Hg] Slim Sudheer DO Work Phone: [facility] 11-23-2023 15:29-0400 Body weight 79.83 kg Tabatha Kay PA Work Phone: [facility] 11-23-2023 15:29-0400 Diastolic blood pressure 64 mm[Hg] Tabatha Mago PA Work Phone: [facility] 11-23-2023 15:29-0400 Systolic blood pressure 118 mm[Hg] Tabatha Kay PA Work Phone: [facility] 10-26-2023 09:35-0400 Body weight 77.02 kg Slim Sudheer DO Work Phone: [facility] 10-26-2023 09:35-0400 Diastolic blood pressure 58 mm[Hg] Slim Sudheer DO Work Phone: [facility] 10-26-2023 09:35-0400 Systolic blood pressure 110 mm[Hg] Slim Sudheer DO Work Phone: [facility] Encounters Encounter Date Encounter Type Care [...] trimester Start: 02-15-2024 End: 02-15-2024 ambulatory TABATHA KYA Not Available Start: 02-15-2024 End: 02-15-2024 Bamboo [...] Bamboo flowsheet Slim Sudheer DO Work Phone: [facility] Start: 12-23-2023 End: 12-23-2023 Bamboo flowsheet Slim Sudheer DO Work Phone: [facility] Start: 11-23-2023 End: 11-23-2023 flow sheet Tabatha Kay PA Work Phone: [facility] Comment on above: Second trimester pre gnancy; 21 weeks gestation of Start: 11-23-2023 End: 11-23-2023 ambulatory TABATHA KAY Not Available Start: 11-23-2023 End: 11-23-2023 Clinisync Result Encounter Slim Sudheer DO Work Phone: [facility] Unsolicited Start: 11-23-2023 End: 11-23-2023 Clinisync Result Encounter Slim Suhdeer DO Work Phone: [facility] Unsolicited Start: 10-26-2023 End: 10-26-2023 Bamboo flowsheet Slim Sudheer DO Work Phone: [facility] Start: 10-26-2023 End: 10-30-2023 Clinisync Result Encounter Slim Sudheer DO Work Phone: [facility] Unsolicited Start: 10-26-2023 End: 10-30-2023 Clinisync Result Encounter Slim Sudheer DO Work Phone: [facility] Unsolicited Start: 10-26-2023 End: 10-27-2023 External Result Encounter Slim Sudheer DO Work Phone: [facility] Unsolicited Start: 10-26-2023 End: 10-26-2023 Patient encounter procedure Slim Sudheer DO Work Phone: [facility] Start: 10-26-2023 End: 10-26-2023 Periodic preventive med est patient 18-39 yrs Slim Sudheer DO Work Phone: [facility] Comment on above: 17 [...] Routine Third trimester Expected: 03/08/2024, Expires: 03/08/2025 [facility] Work Phone: Comment on above: Expected: 03/08/2024 , Expires: 03/08/2025 Start: 03-08-2024 End: 03-08-2024 Patient encounter procedure [facility] Comment on above: Arrived Start: 02-29-2024 End: 02-29-2024 Patient encounter procedure 02/29/2024 2:30 PM EST Routine [facility] [address] [place] [address] Slim Willard, DO [address] [place] [address] Arrived [facility] Comment on above: [...] Procedure [facility] [address] [place] [id number] [facility] Start: 12-23-2023 End: 12-23-2023 Patient encounter procedure [facility] Comment on above: Low-lying placenta Start: 12-23-2023 End: 12-22-2024 CBC panel - Blood by Automated count CBC Lab Routine Diabetes mellitus screening Expected: 12/23/2023 (Approximate), Expires: 12/22/2024 [facility] Comment on above: Expected: 12/23/2023 (Approximate), Expires: 12/22/2024 Start: 12-23-2023 End: 12-22-2024 Measurement of glucose 1 hour after glucose challenge for glucose tolerance test Glucose tolerance, 1 hour Lab Routine Diabetes mellitus screening Expected: 12/23/2023 (Approximate), Expires: 12/22/2024 [facility] Comment on above: Expected: 12/23/2023 (Approximate), Expires: 12/22/2024 Start: 12-23-2023 End: 12-22-2024 US for US OB PLACENTA W US OB TRANSVAGINAL Imaging Routine Low-lying placenta Expected: 12/23/2023 (Approximate), Expires: 12/22/2024 [facility] Work Phone: Comment on above: Expected: 12/23/2023 (Approximate), Expires: 12/22/2024 Start: 11-23-2023 End: 11-23-2023 Patient encounter procedure 11/23/2023 3:30 PM EDT Routine [facility] [address] [place] [phone] Tabatha Kay PA [address] [place], [place] [id number] [facility] Start: 11-16-2023 End: 11-16-2023 Professional / ancillary services management 11/16/2023 10:30 AM EDT Ancillary Procedure [facility] [address] [place] [id number] [facility] Start: 10-26-2023 End: 11-25-2023 Alpha fetoprotein, maternal Alpha fetoprotein, maternal Lab Routine 17 weeks gestation of Expected: 10/26/2023 (Approximate), Expires: 11/25/2023 [facility] Comment on above: Expected: 10/26/2023 (Approximate), Expires: 11/25/2023 Start: 10-26-2023 End: 10-25-2024 US for US OB ANATOMY SINGLE W US OB CERVICAL LENGTH Imaging Routine Screening, , for anatomic survey Expected: 10/26/2023 (Approximate), Expires: 10/25/2024 [facility] Comment on above: Expected: 10/26/2023 (Approximate), Expires: 10/25/2024 Start: 10-26-2023 End: 10-26-2023 Patient encounter procedure 10/26/2023 9:20 AM EDT Routine [facility] [address] [place] [phone] Slim Willard DO [address] [place] [address] [place] [address] Arrived [facility] Comment on above: Arrived Start: 10-18-2023 Influenza vaccination Influenza Vacc ine (#1) [facility] CHLAMYDIA TRACHOMATI S (GENITO/STI) CHLAMYDIA TRACHOMATIS (GENITO/STI) Lab Routine Exposure to STD Ordered: 10/26/2023 [facility] Comment on above: Ordered: 10/26/2023 Cytology Cervical or vaginal smear or scraping study Pap Smear Pathology and Cytology Routine Well woman exam with routine gynecological exam Ordered: 10/26/2023 [facility] Work Phone: Comment on above: Ordered: 10/26/2023 Human papilloma viru s DNA [Presence] in Unspecified specimen by Probe with amplification HPV DNA probe, amplified Microbiology Routine Well woman exam with routine gynecological exam Ordered: 10/26/2023 [facility] Comment on above: Ordered: 10/26/2023 Neisseria gonorrhoea e DNA [Presence] in Unspecified specimen by DIPAK with probe detection Neisseria gonorrhea DNA probe, direct Lab Routine Exposure to STD Ordered: 10/26/2023 [facility] Comment on above: Ordered: 10/26/2023 SURESWAB(R) ADVANCED VAGINITIS PLUS, TMA SURESWAB(R) ADVANCED VAGINITIS PLUS, TMA Pathology and Cytology Routine Vaginal discharge Ordered: 10/26/2023 [facility] Comment on above: Ordered: 10/26/2023 Payers Date Payer Category Payer Private Health Insurance [employer] [id number] 2023 Unknown [employer] [id number] 2023-Present [address] [id number] 2023 Unknown [id number] 1990 Unknown [id number] [id number]. 2.593 1990 Unknown [id number] [id number]. 2.1259 1990 Unknown [id number] [id number]. 2.1259 1990 Unknown [id number] [id number]. 2.1259 1990 Unknown [id number] [id number]. 2.1259 1990 Unknown [id number] [id number]. 2.1259 1992 Unknown [id number] [id number]. 2.1259 1990 Unknown [id number] [id number]. 2.9 1990 Unknown [id number] [id number]. 2.1259 1957 Self-pay [id number] Social History Date Type Detail Facility Start: 10-01-2023 Tobacco smoking stat [facility] Never smoked tobacco [facility] Start: 10-01-2023 Tobacco use and exposure Smoke less tobacco non-user [facility] Start: 10-26-2023 End: 03-08-2024 Alcoholic beverage intake Lifetime non-drinker (finding) [facility] Start: 10-01-2023 History of Social function [facility] Start: 10-01-2023 Tobacco use panel [facility] Start: 07-12-2023 [facility] Start: 1990 Sex assigned at Not on file [facility] Clinical Notes 10-26-2023 to 03-08-2024 RASHEED Rivera - 03/08/2024 10:50 AM Dana Montero, SILAS - 02/29/2024 2:30 PM Brisa Ramos LPN - 02/15/2024 2:10 PM Umer Recinos [employer] HELPER - 01/27/2024 3:00 PM EST Note Date [...] nursing note reviewed. Exam conducted with a rn transport present. Vitals: There is no height or [...] of: RASHEED Rivera documented in this encounter [facility] 02-29-2024 History of Presen t illness Narrative [...] nursing note reviewed. Exam conducted with a rn transport present. Vitals: There is no height or [...] Slim Willard DO documented in this encounter [facility] 02-15-2024 History of Presen t illness Narrative [...] nursing note reviewed. Exam conducted with a rn transport present. Vitals: There is no height or [...] of: RASHEED Rivera documented in this encounter [facility] 01-27-2024 History of Presen t illness Narrative [...] nursing note reviewed. Exam conducted with a rn transport present. Vitals: There is no height or [...] Slim Willard DO documented in this encounter [facility] 01-13-2024 History of Presen t illness Narrative [...] of: RASHEED Rivera documented in this encounter [facility] 12-23-2023 History of Presen t illness Narrative [...] nursing note reviewed. Exam conducted with a rn transport present. Vitals: There is no height or [...] Slim Willard DO documented in this encounter [facility] 11-23-2023 History of Presen t illness Narrative [...] of: RASHEED Rivera documented in this encounter [facility] 10-26-2023 History of Presen t illness Narrative [...] nursing note reviewed. Exam conducted with a rn transport present. Vitals: There is no height or [...] obtained without difficulty and patient was given Critical access hospital order to have obtained. New OB: Patient [...] or undercooked meat, and stay away from [facility]. Patient has been consulted regarding any further [...] DATE CREATED AUTHOR AUTHOR'S ORGANIZ ATION 03/03/2024 [facility] [employer] Care Teams (unrecognized sec tion and content) Schedule Clerk Relationship Specialty Start Date End Date Burke Dennis MD [address] [place] [address] (Fax) PCP - [facility] 05/18/23 Schedule Clerk Relationship Specialty Start Date End Date Burke Dennis MD [address] [place] [address] (Fax) PCP - [facility] 05/18/23 Reason for Visit (unrecogniz ed [...] BE BASED ON THE PRIMARY CLINICAL RECORDS. [facility] [email or web address] [facility]. provides no warranty or guarantee of the accuracy or completeness of information in this document.
--- OUTSIDE RECORDS SUMMARY | 2024-03-09 11:25 | XMS_ITS | CCD ---
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 Name Role Phone REQUEST, NONE LISTED Primary [...] UA Negative Negative - 4(70) +++ mg/dL [facility] Work Phone: Blood, UA Negative Negative - 50 Ramiro/mcL [facility] Work Phone: Clarity, UA Clear [facility] [employer] Work Phone: Color, UA Yellow [facility] [employer] Work Phone: Glucose, UA Negative Negative - 2000(110) ++++ mg/dL [facility] Work Phone: Interpretation and review of laboratory results Normal [facility] [employer] Work Phone: Ketones, UA Negative Negative - 160(16) ++++ mg/dL [facility] Work Phone: Leukocytes, UA Negative Negative - 500+++ Gilmer/mcL [facility] Work Phone: Nitrite, UA Negative Negative - Positive [facility] Work Phone: pH, UA 5.5 5 - 9 [facility] Work Phone: Protein, UA Negative Negative - 1999(20) ++++ mg/dL [facility] Work Phone: Spec Grav, UA 1.025 1 - 1.03 [facility] Health care Work Phone: Urobilinogen, UA 1.0 0.2 - 12 mg/dL [facility] [employer] Work Phone: [facility] [employer] Work Phone: Urinalysis macro (dipstick) panel (U)on 02-29-2024 Bilirubin, UA Negative Negative - 4(70) +++ mg/dL [facility] Blood, UA Negative Negative - 50 Ramiro/mcL [facility] Clarity, UA Clear [facility] Color, UA Yellow [facility] Glucose, UA Negative Negative - 1999(110) ++++ mg/dL [facility] Interpretation and review of laboratory results Abnormal [facility] Ketones, UA Positive Negative - 160(16) ++++ mg/dL [facility] Comment on above: trace Leukocytes, UA Negative Negative - 500+++ Gilmer/mcL [facility] Nitrite, UA Negative Negative - Positive [facility] pH, UA 6 5 - 9 [facility] Protein, UA Positive Negative - 1999(20) ++++ mg/dL [facility] Comment on above: 30 mg Spec Grav, UA 1.03 1 - 1.03 [facility] Urobilinogen, UA 0.2 0.2 - 12 mg/dL [facility] Urinalysis macro (dipstick) panel (U)on 02-15-2024 Bilirubin, UA Negative Negative - 4(70) +++ mg/dL [facility] Blood, UA Negative Negative - 50 Ramiro/mcL [facility] Clarity, UA Clear [facility] Color, UA Yellow [facility] Glucose, UA Negative Negative - 1999(110) ++++ mg/dL [facility] Interpretation and review of laboratory results Abnormal [facility] Ketones, UA Negative Negative - 160(16) ++++ mg/dL [facility] Leukocytes, UA Negative Negative - 500+++ Gilmer/mcL [facility] Nitrite, UA Negative Negative - Positive [facility] pH, UA 7 5 - 9 [facility] Protein, UA Few Negative - 1999(20) ++++ mg/dL [facility] Comment on above: 30mg/dL Spec Grav, UA 1.025 1 - 1.03 [facility] Urobilinogen, UA 0.2 0.2 - 12 mg/dL [facility] Urinalysis macro (dipstick) panel (U)on 01-27-2024 Bilirubin, UA Negative Negative - 4(70) +++ mg/dL [facility] Blood, UA Negative Negative - 50 Ramiro/mcL [facility] Clarity, UA Clear [facility] Color, UA Yellow [facility] Glucose, UA Negative Negative - 1999(110) ++++ mg/dL [facility] Interpretation and review of laboratory results Normal [facility] re Ketones, UA Negative Negative - 160(16) ++++ mg/dL [facility] Leukocytes, UA Negative Negative - 500+++ Gilmer/mcL [facility] Nitrite, UA Negative Negative - Positive [facility] pH, UA 5 5 - 9 [facility] Protein, UA Negative Negative - 1999(20) ++++ mg/dL [facility] Spec Grav, UA 1.01 1 - 1.03 [facility] Urobilinogen, UA 0.2 0.2 - 12 mg/dL [facility] Urinalysis macro (dipstick) panel (U)on 01-13-2024 Bilirubin, UA Negative Negative - 4(70) +++ mg/dL [facility] Blood, UA Negative Negative - 50 Ramiro/mcL [facility] Clarity, UA Clear [facility] Color, UA Yellow [facility] Glucose, UA Negative Negative - 1999(110) ++++ mg/dL [facility] Interpretation and review of laboratory results Normal [facility] Ketones, UA Negative Negative - 160(16) ++++ mg/dL [facility] Leukocytes, UA Negative Negative - 500+++ Gilmer/mcL [facility] Healthcare Nitrite, UA Negative Negative - Positive [facility] pH, UA 7 5 - 9 [facility] Protein, UA Negative Negative - 1999(20) ++++ mg/dL [facility] Spec Grav, UA 1.015 1 - 1.03 [facility] Urobilinogen, UA 0.2 0.2 - 12 mg/dL [facility] ALL CBC WITH AUTO DIFFon BASOPHILS ABSOLUTE AUTO 0 [facility] Basophils/100 WBC (Bld) 0.4 % 0.2 - 2.0 % [facility] Eosinophils/100 WBC (Bld) 0.6 % Low 0.9 - 7.0 % [facility] Erythrocyte distribution width (RBC) [Ratio] 13 % 11.0 - 15.0 % [facility] Hematocrit (Bld) [Volume fraction] 34.2 % Low 36.0 - 48.0 % [facility] e Hemoglobin (Bld) [Mass/Vol] 11.8 g/dL Low 12.0 - 16.0 g/dL [facility] IMMATURE GRANULOCYTES ABS AUTO 0.04 High [facility] Immature granulocytes/100 WBC (Bld) 0.4 % 0.0 - 0.5 % [facility] Interpretation and review of laboratory results Abnormal [facility] LYMPHOCYTES ABSOLUTE AUTO 1.9 [facility] Lymphocytes/100 WBC (Bld) 19.2 % Low 20.5 - 60.0 % [facility] MCH (RBC) [Entitic mass] 31.6 pg 26.7 - 34.0 pg [facility] MCHC (RBC) [Mass/Vol] 34.5 g/dL 29.9 - 35.2 g/dL [facility] MCV (RBC) [Entitic vol] 91.4 fL 81.0 - 99.0 fL [facility] MONOCYTES ABSOLUTE AUTO 0.6 [facility] Monocytes/100 WBC (Bld) 6 % 1.7 - 12.0 % [facility] NEUTROPHILS ABSOLUTE AUTO 7.3 High [facility] Neutrophils/100 WBC (Bld) 73.4 % 43.0 - 75.0 % [facility] Platelet mean volume (Bld) [Entitic vol] 9.1 fL Low 9.5 - 13.5 fL [facility] TBH EO # 0.1 [facility] PLT 231 [facility] TB RBC 3.74 Low [facility] TBH WBC 10 [facility] Urinalysis macro (dipstick) panel (U)on 12-23-2023 Bilirubin, UA Positive Negative - 4(70) +++ mg/dL [facility] Comment on above: small Blood, UA Negative Negative - 50 Ramiro/mcL [facility] Clarity, UA Clear [facility] re Color, UA Nadia [facility] Glucose, UA Negative Negative - 1999(110) ++++ mg/dL [facility] Interpretation and review of laboratory results Abnormal [facility] re Ketones, UA Positive Negative - 160(16) ++++ mg/dL [facility] Comment on above: trace Leukocytes, UA Negative Negative - 500+++ Gilmer/mcL [facility] Nitrite, UA Negative Negative - Positive [facility] pH, UA 5.5 5 - 9 [facility] e Protein, UA Trace Negative - 1999(20) ++++ mg/dL [facility] Spec Grav, UA 1.03 1 - 1.03 [facility] Urobilinogen, UA 0.2 0.2 - 12 mg/dL [facility] ALL CBC WITH AUTO DIFFon BASOPHILS ABSOLUTE AUTO 0.0 [facility] Basophils/100 WBC (Bld) 0.3 % 0.2 - 2.0 % [facility] Eosinophils/100 WBC (Bld) 0.6 % Low 0.9 - 7.0 % [facility] Erythrocyte distribution width (RBC) [Ratio] 13.6 % 11.0 - 15.0 % [facility] Hematocrit (Bld) [Volume fraction] 33.7 % Low 36.0 - 48.0 % [facility] Hem[facility] (Bld) [Mass/Vol] 11.5 g/dL Low 12.0 - 16.0 g/dL [facility] IMMATURE GRANULOCYTES ABS AUTO 0.05 High [facility] Immature granulocytes/100 WBC (Bld) 0.5 % 0.0 - 0.5 % [facility] Interpretation and review of laboratory results Abnormal [facility] re LYMPHOCYTES ABSOLUTE AUTO 2.2 [facility] Lymphocytes/100 WBC (Bld) 22.0 % 20.5 - 60.0 % [facility] MCH (RBC) [Entitic mass] 30.9 pg 26.7 - 34.0 pg [facility] MCHC (RBC) [Mass/Vol] 34.1 g/dL 29.9 - 35.2 g/dL [facility] MCV (RBC) [Entitic vol] 90.6 fL 81.0 - 99.0 fL [facility] MONOCYTES ABSOLUTE AUTO 0.5 [facility] Monocytes/100 WBC (Bld) 5.3 % 1.7 - 12.0 % [facility] NEUTROPHILS ABSOLUTE AUTO 7.2 High [facility] Neutrophils/100 WBC (Bld) 71.3 % 43.0 - 75.0 % [facility] Platelet mean volume (Bld) [Entitic vol] 9.4 fL Low 9.5 - 13.5 fL [facility] TBH EO # 0.1 [facility] TB PLT 255 [facility] e TB RBC 3.72 Low [facility] TBH WBC 10.1 [facility] Urinalysis macro (dipstick) panel (U)on 11-23-2023 Bilirubin, UA Negative Negative - 4(70) +++ mg/dL [facility] Blood, UA Negative Negative - 50 Ramiro/mcL [facility] Clarity, UA Clear [facility] re Color, UA Yellow [facility] Glucose, UA Negative Negative - 1999(110) ++++ mg/dL [facility] Interpretation and review of laboratory results Abnormal [facility] re Ketones, UA Positive Negative - 160(16) ++++ mg/dL [facility] Comment on above: 40 Leukocytes, UA Trace Negative - 500+++ Gilmer/mcL [facility] Nitrite, UA Negative Negative - Positive [facility] pH, UA 7.0 5 - 9 [facility] Protein, UA Negative Negative - 1999(20) ++++ mg/dL [facility] Spec Grav, UA 1.030 1 - 1.03 [facility] Urobilinogen, UA 0.2 0.2 - 12 mg/dL [facility] IGP,APTIMA HPV,AGE GDLNon AGE GDLN ACOG TESTING Note . [facility] Comment on above: TESTS RESULT FLAG UN ITS REF RANGE LAB Clinician Provided Cytology Information Source.............Cervix No. of containers..01 ThinPrep Vial Age Rico JARQUIN Laura... 32 FLAG LEGEND: L-Low Normal,H-High Normal,LL-Alert Low,HH-Alert High <-Panic Low,>-Panic High,A-Abnormal,AA-Critical Abnormal Performed at: 01 =G [facility] [id number] Jen Correa MD, HPV APTIMA Positive Abnormal Negative [facility] e Comment on above: This nucleic acid am plification test detects fourteen high- risk HPV types (16,18,31,33,35,39,45,51,52,56,58,59,66,68) without differentiation. HPV GENOTYPE 16 Negative Negative [facility] 18,45 Positive Abnormal Negative [facility] Comment on above: Performed at: =G - L [address] [id number] Fish Net Stringer: Jen Correa MD, Phone: [phone] Performed at: [facility] [address] [id number] [employer] Stringer: Jen Correa MD, Phone: [phone] IGP, APTIMA HPV, RFX 16/18,45 Note . [facility] Comment on above: TESTS RESULT FLAG UN ITS REF RANGE LAB DIAGNOSIS: 02 NEGATIVE FOR INTRAEPITHELIAL LESION OR MALIGNANCY. FUNGAL ORGANISMS MORPHOLOGICALLY CONSISTENT WITH JOSE LUIS SPECIES ARE PRESENT. Specimen adequacy: 02 Satisfactory for evaluation. No endocervical component is identified. Performed by: 02 Stacey Nevarez Loom Changeover Operator . 02 Note: Note 02 The Pap [...] <-Panic Low,>-Panic High,A-Abnormal,AA-Critical Abnormal Performed at: [address] [id number] Jen Correa MD, Interpretation and review of laboratory results Abnormal [facility] re SPATULA-ALONE CERVIX [facility] e URETHRITIS/DISCHARGE PLUS VA GINITIS (HTRX)on 10-27-2023 ATOPOBIUM VAGINAE 0.000 [facility] ATOPOBIUM VAGINAE Not detected [facility] BVAB 2,3 (BACTERIAL VAGINOSIS ASSOCIATED BACTERIA 2, 3); MOBILUNCUS SPP 0.000 [facility] BVAB 2,3 (BACTERIAL VAGINOSIS ASSOCIATED BACTERIA 2, 3); MOBILUNCUS SPP Not detected [facility] JOSE LUIS ALBICANS, PARAPSILOSIS, TROPICALIS 29.119 Abnormal [facility] JOSE LUIS ALBICANS, PARAPSILOSIS, TROPICALIS Detected Abnormal [facility] JOSE LUIS GLABRATA 0.000 [facility] JOSE LUIS GLABRATA Not detected [facility] JOSE LUIS KRUSEI 0.000 [facility]alt [facility]care JOSE LUIS KRUSEI Not detected [facility] CHLAMYDIA TRACHOMATIS 0.000 [facility] CHLAMYDIA TRACHOMATIS Not detected [facility] GARDNERELLA VAGINALIS 0.000 [facility] GARDNERELLA VAGINALIS Not detected [facility] Interpretation and review of laboratory results Abnormal [facility] MEGASPHAERA (TYPES 1, 2) 0.000 [facility] MEGASPHAERA (TYPES 1, 2) Not detected [facility] MYCOPLASMA GENITALIUM 0.000 [facility] MYCOPLASMA GENITALIUM Not detected [facility] NEISSERIA GONORRHOEAE 0.000 [facility] NEISSERIA GONORRHOEAE Not detected [facility] TRICHOMONAS VAGINALIS 0.000 [facility] TRICHOMONAS VAGINALIS Not detected [facility] Urinalysis macro (dipstick) panel (U)on 10-26-2023 Bilirubin, UA Negative Negative - 4(70) +++ mg/dL [facility] Blood, UA Negative Negative - 50 Ramiro/mcL [facility] Clarity, UA Clear [facility] re Color, UA Yellow [facility] Glucose, UA Negative Negative - 1999(110) ++++ mg/dL [facility] Interpretation and review of laboratory results Abnormal [facility] Ketones, UA Negative Negative - 160(16) ++++ mg/dL [facility] Leukocytes, UA Positive Negative - 500+++ Gilmer/mcL [facility] Comment on above: small Nitrite, UA Negative Negative - Positive [facility] pH, UA 8.5 5 - 9 [facility] Protein, UA Negative Negative - 1999(20) ++++ mg/dL [facility] Spec Grav, UA 1.020 1 - 1.03 [facility] Urobilinogen, UA 0.2 0.2 - 12 mg/dL [facility] ABO AND RH TYPEon 11-01-2018 ABO and Rh group Nom (Bld) ABO Rh Typing A Rh Positive Normal [facility] Comment on above: Performed By: #### A MEI #### [facility] [address] [place] [address] Bartolo Escobedo CARDIAC JUDITH ADMITon 019 CK [Catalytic activity/Vol] 38 U/L Normal 30-135 [facility] Comment on above: Performed By: #### C MP, CMADM, PREGQNT #### [facility] [address] [place] [address] Bartolo Escobedo CK.MB [Mass/Vol] ng/mL Normal <=2.37 [facility] Comment on above: Performed By: #### C MP, CMADM, PREGQNT #### [facility] [address] [place] [address] Bartolo Escobedo INR Coag (Bld) [Relative time] SEE BELOW Normal [facility] Comment on above: Result Comment: <0.0 34 ng/ml NEGATIVE 0.034-0.119 INDETERMINATE 0.120 AMI CUT OFF Performed By: #### C MP, CMADM, PREGQNT #### [facility] [address] [place] [address] Bartolo Escobedo MADELINE 16.0 ng/mL Normal <=61.5 [facility] Comment on above: Performed By: #### C MP, CMADM, PREGQNT #### [facility] [address] [place], [place] [id number] Bartolo Escobedo TROP <0.017 Normal <=0.034 [facility] Comment on above: Performed By: #### C MP, CMADM, PREGQNT #### [facility] [address] [place], [place] [id number] Bartolo Escobedo CBC AUTO DIFFon 11-01-2018 Basophils (Bld) [#/Vol] 0.0 103/ul Normal 0.0-0.1 [facility] Comment on above: Performed By: #### C BC #### [facility] [address] [place], [place] [id number] Bartolo Escobedo Basophils/100 WBC (Bld) 0.2 % Normal 0.2-2.0 [facility] Comment on above: Performed By: #### C BC #### [facility] [address] [place], [place] [id number] Bartolo Fanny Eosinophils (Bld) [#/Vol] 0.0 103/ul Normal 0.0-0.7 [facility] Comment on above: Performed By: #### C BC #### [facility] [address] [place] [address] Bartolo Fanny Eosinophils/100 WBC (Bld) 0.2 % Critically low 0.9-7.0 [facility] Comment on above: Performed By: #### C BC #### [facility] [address] [place] [address] Bartolo Fanny Erythrocyte distribution width (RBC) [Ratio] 12.7 % Normal 11.0-15.0 [facility] Comment on above: Performed By: #### C BC #### [facility] [address] [place] [address] Bartolo Fanny Hematocrit (Bld) [Volume fraction] 33.1 % Critically low 36.0-48.0 [facility] Comment on above: Performed By: #### C BC #### [facility] [address] [place] [address] Bartolo Fanny Hemoglobin (Bld) [Mass/Vol] 11.3 g/dL Critically low 12.0-16.0 [facility] Comment on above: Performed By: #### C BC #### [facility] [address] [place] [address] Bartolo Fanny IG # 0.03 10e3/ul Normal 0.00-0.03 [facility] Comment on above: Performed By: #### C BC #### [facility] [address] [place] [address] Bartolo Fanny IG % 0.2 % Normal 0.0-0.5 [facility] Comment on above: Performed By: #### C BC #### [facility] [address] [place] [address] Bartolo Fanny Lymphocytes (Bld) [#/Vol] 1.8 103/ul Normal 1.2-3.8 [facility] Comment on above: Performed By: #### C BC #### [facility] [address] [place] [address] Bartolo Fanny Lymphocytes/100 WBC (Bld) 13.9 % Critically low 20.5-60.0 [facility] Comment on above: Performed By: #### C BC #### [facility] [address] [place], [place] [id number] Bartolo Fanny MANUAL DIFF REQ NO Normal [facility] Comment on above: Performed By: #### C BC #### [facility] [address] [place], [place] [id number] Bartolo Fanny MCH (RBC) [Entitic mass] 29.7 pg Normal 26.7-34.0 [facility] Comment on above: Performed By: #### C BC #### [facility] [address] [place], [place] [id number] Bartolo Fanny MCHC (RBC) [Mass/Vol] 34.1 g/dL Normal 29.9-35.2 [facility] Comment on above: Performed By: #### C BC #### [facility] [address] [place], [place] [id number] Bartolo Fanny MCV (RBC) [Entitic vol] 87.1 fL Normal 81.0-99.0 [facility] Comment on above: Performed By: #### C BC #### [facility] [address] [place], [place] [id number] Bartolo Fanny Monocytes (Bld) [#/Vol] 0.4 103/ul Normal 0.3-0.8 [facility] Comment on above: Performed By: #### C BC #### [facility] [address] [place], [place] [id number] Bartolo Fanny Monocytes/100 WBC (Bld) 3.1 % Normal 1.7-12.0 [facility] Comment on above: Performed By: #### C BC #### [facility] [address] [place], [place] [id number] Bartolo Fanny Neutrophils (Bld) [#/Vol] 10.8 103/ul Critically high 1.4-6.5 [facility] Comment on above: Performed By: #### C BC #### [facility] [address] [place], [place] [id number] Bartolo Fanny Neutrophils/100 WBC (Bld) 82.4 % Critically high 43.0-75.0 [facility] Comment on above: Performed By: #### C BC #### [facility] [address] [place] [address] Bartolo Escobedo Platelet mean volume (Bld) [Entitic vol] 10.4 fL Normal 9.5-13.5 [facility] Comment on above: Performed By: #### C BC #### [facility] [address] [place] [address] Bartolo Escobedo Platelets (Bld) [#/Vol] 255 103/ul Normal 150-450 [facility] Comment on above: Performed By: #### C BC #### [facility] [address] [place], [place] [phone] Bartolo Escobedo RBC (Bld) [#/Vol] 3.80 106/ul Critically low 4.20-5.40 [facility] Comment on above: Performed By: #### C BC #### [facility] [address] [place] [address] Bartolo Escobedo WBC (Bld) [#/Vol] 13.1 103/ul Critically high 4.0-11.0 [facility] Comment on above: Performed By: #### C BC #### [facility] [address] [place] [address] C-SPINE WO CONon 11-02-[address] C-SPINE WO CON Patient: LIZZ ZACARIAS Exam Date: 11/01/2018 : 1990 Gender:F Ordering : RASHEED IQBAL Admission #: [id number] Family : DR VICTORIANO GR D.O. Order #: [id number] CLICK HERE TO VIEW EXAM RADIOLOGY REPORT [...] M.D. on 11/01/2018 at 15:02 Normal [facility] CT HEAD WO CONon 11-01-2018 CT HEAD WO CON Patient: LIZZ ZACARIAS Exam Date: 11/01/2018 : 1990 Gender:F Ordering : RASHEED IQBAL Admission #: [id number] Family : DR VICTORIANO GR D.O. Order #: [id number] CLICK HERE TO VIEW EXAM RADIOLOGY REPORT [...] M.D. on 11/01/2018 at 14:59 Normal [facility] PREG QUANT HCGon 11-01-2018 HCG QUANT 1500.00 mIU/mL Normal [facility] Comment on above: Performed By: #### C MP, CMADM, PREGQNT #### [facility] [address] [address] Bartolo Escobedo HCG RANGE SEE BELOW Normal [facility] Comment on above: Result Comment: 5-50 0-1 WEEK 40-300 1-2 WEEKS 100-1,000 2-3 WEEKS 500-6,000 3-4 WEEKS 5,000-200,000 1-2 MONTHS 10,000-100,000 2-3 MONTHS 3,000-50,000 2ND TRIMESTER 1,000-50,000 3RD TRIMESTER Performed By: #### C MP, CMADM, PREGQNT #### [facility] [address] [place], [place] [address] Bartolo Escobedo PROF 14(COMP METB)on 019 Albumin [Mass/Vol] 3.5 g/dL Normal 3.5-5.0 [facility] Comment on above: Performed By: #### C MP, CMADM, PREGQNT #### [facility] [address] [id number] Bartolo Fanny Albumin/Globulin [Mass ratio] 0.9 {ratio} Normal [facility] Comment on above: Performed By: #### C MP, CMADM, PREGQNT #### [facility] [address] [id number] Bartolo Fanny ALP [Catalytic activity/Vol] 43 U/L Normal 38-126 [facility] Comment on above: Performed By: #### C MP, CMADM, PREGQNT #### [facility] [address] [phone] Bartolo Fanny ALT [Catalytic activity/Vol] 12 U/L Normal 9-52 [facility] Comment on above: Performed By: #### C MP, CMADM, PREGQNT #### [facility] [address] [id number] Bartolo Fanny Anion gap [Moles/Vol] 13.8 mmol/L Normal [facility] Comment on above: Performed By: #### C MP, CMADM, PREGQNT #### [facility] [address] [phone] Bartolo Fanny AST [Catalytic activity/Vol] 12 U/L Critically low 14-36 [facility] Comment on above: Performed By: #### C MP, CMADM, PREGQNT #### [facility] [address] [id number] Bartolo Fanny Bilirubin Ql (U) 0.7 mg/dL Normal 0.2-1.3 [facility] Comment on above: Performed By: #### C MP, CMADM, PREGQNT #### [facility] [address] [id number] Bartolo Fanny Calcium [Mass/Vol] 8.7 mg/dL Normal 8.4-10.2 [facility] Comment on above: Performed By: #### C MP, CMADM, PREGQNT #### [facility] [address] [address] Bartolo Fanny Chloride [Moles/Vol] 104 mmol/L Normal 98-107 [facility] Comment on above: Performed By: #### C MP, CMADM, PREGQNT #### [facility] [address] [address] Bartolo Fanny CO2 [Moles/Vol] 22.7 mmol/L Normal 22.0-30.0 [facility] Comment on above: Performed By: #### C MP, CMADM, PREGQNT #### [facility] [address] [address] Bartolo Fanny Creatinine [Mass/Vol] 0.67 mg/dL Normal 0.52-1.04 [facility] Comment on above: Performed By: #### C MP, CMADM, PREGQNT #### [facility] [address] [place] [address] Bartolo Fanny EGFR-AF GUYANESE >60 Normal >=60 [facility] Comment on above: Performed By: #### C MP, CMADM, PREGQNT #### [facility] [address] [place] [address] Bartolo Fanny EGFR-NON AF GUYANESE >60 Normal >=60 [facility] Comment on above: Performed By: #### C MP, CMADM, PREGQNT #### [facility] [address] [id number] Bartolo Fanny Globulin (S) [Mass/Vol] 4.0 g/dL Normal [facility] Comment on above: Performed By: #### C MP, CMADM, PREGQNT #### [facility] [address] [address] Bartolo Fanny Glucose [Mass/Vol] 113 mg/dL Critically high 74-106 T [facility] Comment on above: Performed By: #### C MP, CMADM, PREGQNT #### [facility] [address] [address] Bartolo Fanny Potassium [Moles/Vol] 3.5 mmol/L Normal 3.4-5.0 [facility] Comment on above: Performed By: #### C MP, CMADM, PREGQNT #### [facility] [address] [place] [address] Bartolo Fanny Protein [Mass/Vol] 7.5 g/dL Normal 6.1-8.2 [facility] Comment on above: Performed By: #### C MP, CMADM, PREGQNT #### [facility] [address] [place] [address] Bartolo Fanny Sodium [Moles/Vol] 137 mmol/L Normal 137-145 [facility] Comment on above: Performed By: #### C MP, CMADM, PREGQNT #### [facility] [address] [place] [address] Bartolo Fanny Urea nitrogen [Mass/Vol] 10.0 mg/dL Normal 7.0-17.0 [facility] Comment on above: Performed By: #### C MP, CMADM, PREGQNT #### [facility] [address] [place] [address] Bartolo Fanny Urea nitrogen/Creatinine [Mass ratio] 14.9 mg/mg Normal [facility] Comment on above: Performed By: #### C MP, CMADM, PREGQNT #### [facility] [address] [place] [address] Bartolo Fanny PROTIMEon 11-01-2018 INR Coag (PPP) [Relative time] 1.02 {INR} Normal [facility] Comment on above: Performed By: #### P T, PTT #### [facility] [address] [place] [address] Bartolo Fanny PT Coag (PPP) [Time] PLEASE NOTE: NORMAL RANGE CHANGE 11-03-2013 DUE TO REAGENT LOT CHANGE Normal [facility] Comment on above: Performed By: #### P T, PTT #### [facility] [address] [place], [place] [address] Bartolo Fanny PT Coag (PPP) [Time] 10.6 s Normal 9.0-11.6 [facility] Comment on above: Performed By: #### P T, PTT #### [facility] [address] [place], [place] [address] Bartolo Fanny PT Coag (PPP) [Time] SEE BELOW Normal [facility] Comment on above: Result Comment: AKIL RED INR: 2.0 - 3.0 CONDITIONS NOT LISTED BELOW 2.5 - 3.5 FOR PROSTHETIC HEART VALVE REPLACEMENT 2.5 - 3.5 RECURRENT THROMBOSIS Performed By: #### P T, PTT #### [facility] [address] [place], [place] [address] Bartolo Fanny PTTon 11-01-2018 aPTT Coag (Bld) [Time] PLEASE NOTE: NORMAL RANGE CHANGE 01-10-2015 DUE TO REAGENT LOT CHANGE Normal [facility] Comment on above: Performed By: #### P T, PTT #### [facility] [address] [place], [place] [address] Bartolo Fanny aPTT Coag (Bld) [Time] 21.6 s Critically low 22.3-36.2 [facility] Comment on above: Performed By: #### P T, PTT #### [facility] [address] [place], [place] [address] Bartolo Fanny TYPE AND SCREENon 11-01-2018 TYPE AND SCREEN Negative Normal [facility] Comment on above: Performed By: #### P T, PTT #### [facility] [address] [place], [place] [address] Bartolo Fanny US PREG <14 WKSon 11-01-2018 US PREG <14 WKS Patient: LIZZ ZACARIAS Exam Date: 11/01/2018 : 1990 Gender:F Ordering : RASHEED IQBAL Admission #: [id number] Family : DR VICTORIANO GR D.O. Order #: [id number] CLICK HERE TO VIEW EXAM RADIOLOGY REPORT [...] Emmanuel M.D. on 11/01/2018 at 15:43 Normal [facility] Vital Signs Date Time Vital Sign Value Performing Clinician Kike altamirano 03-08-2024 11:50-0500 Body weight 91.54 kg Tabatha IQBAL Work Phone: [facility] 03-08-2024 11:50-0500 Diastolic blood pressure 74 mm[Hg] Tabatha IQBAL Work Phone: [facility] 03-08-2024 11:50-0500 Systolic blood pressure 120 mm[Hg] Tabatha IQBAL Work Phone: [facility] 02-29-2024 14:54-0500 Body weight 89.81 kg Slim Sudheer DO Work Phone: [facility] 02-29-2024 14:54-0500 Diastolic blood pressure 70 mm[Hg] Slim Sudheer DO Work Phone: [facility] 02-29-2024 14:54-0500 Systolic blood pressure 120 mm[Hg] Slim Sudheer DO Work Phone: [facility] 02-15-2024 14:26-0500 Body weight 88.81 kg Tabatha IQBAL Work Phone: [facility] 02-15-2024 14:26-0500 Diastolic blood pressure 72 mm[Hg] Tabatha IQBAL Work Phone: [facility] 02-15-2024 14:26-0500 Systolic blood pressure 108 mm[Hg] Tabatha Lewis PA Work Phone: [facility] 01-27-2024 15:40-0500 Body weight 87.09 kg Slim Sudheer DO Work Phone: [facility] 01-27-2024 15:40-0500 Diastolic blood pressure 58 mm[Hg] Slim Sudeher DO Work Phone: [facility] 01-27-2024 15:40-0500 Systolic blood pressure 110 mm[Hg] Slim Sudheer DO Work Phone: [facility] 01-13-2024 10:15-0500 Body weight 83.83 kg Tabatha Mago PA Work Phone: [facility] 01-13-2024 10:15-0500 Diastolic blood pressure 56 mm[Hg] Tabatha Kay PA Work Phone: [facility] 01-13-2024 10:15-0500 Systolic blood pressure 100 mm[Hg] Tabatha Kay PA Work Phone: [facility] 12-23-2023 15:41-0500 Body weight 83.01 kg Slim Sudheer DO Work Phone: [facility] 12-23-2023 15:41-0500 Diastolic blood pressure 68 mm[Hg] Slim Sudheer DO Work Phone: [facility] 12-23-2023 15:41-0500 Systolic blood pressure 110 mm[Hg] Slim Sudheer DO Work Phone: [facility] 11-23-2023 15:29-0400 Body weight 79.83 kg Tabatha Kay PA Work Phone: [facility] 11-23-2023 15:29-0400 Diastolic blood pressure 64 mm[Hg] Tabatha Mago PA Work Phone: [facility] 11-23-2023 15:29-0400 Systolic blood pressure 118 mm[Hg] Tabatha Kay PA Work Phone: [facility] 10-26-2023 09:35-0400 Body weight 77.02 kg Slim Sudheer DO Work Phone: [facility] 10-26-2023 09:35-0400 Diastolic blood pressure 58 mm[Hg] Slim Sudheer DO Work Phone: [facility] 10-26-2023 09:35-0400 Systolic blood pressure 110 mm[Hg] Slim Sudheer DO Work Phone: [facility] Encounters Encounter Date Encounter Type Care [...] Bamboo flowsheet Slim Sudheer DO Work Phone: [facility] Start: 12-23-2023 End: 12-23-2023 Bamboo flowsheet Slim Sudheer DO Work Phone: [facility] Start: 11-23-2023 End: 11-23-2023 flow sheet Tabatha Kay PA Work Phone: [facility] Comment on above: Second [...] Bamboo flowsheet Slim Sudheer DO Work Phone: [facility] Start: 10-26-2023 End: 10-30-2023 Clinisync Result Encounter Slim Sudheer DO Work Phone: [facility] Unsolicited Start: 10-26-2023 End: 10-30-2023 Clinisync Result Encounter Slim Sudheer DO Work Phone: [facility] Unsolicited Start: 10-26-2023 End: 10-27-2023 External Result Encounter Slim Sudheer DO Work Phone: [facility] Unsolicited Start: 10-26-2023 End: 10-26-2023 Patient encounter procedure Slim Sudheer DO Work Phone: [facility] Start: 10-26-2023 End: 10-26-2023 Periodic preventive med est patient 18-39 yrs Slim Sudheer DO Work Phone: [facility] Comment on above: 17 weeks [...] Routine Third trimester Expected: 03/08/2024, Expires: 03/08/2025 [facility] Work Phone: Comment on above: Expected: 03/08/2024 , Expires: 03/08/2025 Start: 03-08-2024 End: 03-08-2024 Patient encounter procedure [facility] Comment on above: Arrived Start: 02-29-2024 End: 02-29-2024 Patient encounter procedure 02/29/2024 2:30 PM EST Routine [facility] [address] [place] [address] Slim Willard, DO [address] [place] [address] Arrived [facility] Comment on above: [...] Procedure [facility] [address] [place] [id number] [facility] Start: 12-23-2023 End: 12-23-2023 Patient encounter procedure [facility] Comment on above: Low-lying placenta Start: 12-23-2023 End: 12-22-2024 CBC panel - Blood by Automated count CBC Lab Routine Diabetes mellitus screening Expected: 12/23/2023 (Approximate), Expires: 12/22/2024 [facility] Comment on above: Expected: 12/23/2023 (Approximate), Expires: 12/22/2024 Start: 12-23-2023 End: 12-22-2024 Measurement of glucose 1 hour after glucose challenge for glucose tolerance test Glucose tolerance, 1 hour Lab Routine Diabetes mellitus screening Expected: 12/23/2023 (Approximate), Expires: 12/22/2024 [facility] Comment on above: Expected: 12/23/2023 (Approximate), Expires: 12/22/2024 Start: 12-23-2023 End: 12-22-2024 US for US OB PLACENTA W US OB TRANSVAGINAL Imaging Routine Low-lying placenta Expected: 12/23/2023 (Approximate), Expires: 12/22/2024 [facility] Work Phone: Comment on above: Expected: 12/23/2023 (Approximate), Expires: 12/22/2024 Start: 11-23-2023 End: 11-23-2023 Patient encounter procedure 11/23/2023 3:30 PM EDT Routine [facility] [address] [place] [phone] Tabatha Kay PA [address] [place], [place] [phone] [facility] Start: 11-16-2023 End: 11-16-2023 Professional / ancillary services management 11/16/2023 10:30 AM EDT Ancillary Procedure [facility] [address] [id number] [facility] Start: 10-26-2023 End: 11-25-2023 Alpha fetoprotein, maternal Alpha fetoprotein, maternal Lab Routine 17 weeks gestation of Expected: 10/26/2023 (Approximate), Expires: 11/25/2023 [facility] Comment on above: Expected: 10/26/2023 (Approximate), Expires: 11/25/2023 Start: 10-26-2023 End: 10-25-2024 US for US OB ANATOMY SINGLE W US OB CERVICAL LENGTH Imaging Routine Screening, , for anatomic survey Expected: 10/26/2023 (Approximate), Expires: 10/25/2024 [facility] Comment on above: Expected: 10/26/2023 (Approximate), Expires: 10/25/2024 Start: 10-26-2023 End: 10-26-2023 Patient encounter procedure 10/26/2023 9:20 AM EDT Routine [facility] [address] [place] [address] Slim Willard DO [address] [place] [address] [place] [address] Arrived [facility] Comment on above: Arrived Start: 10-18-2023 Influenza vaccination Influenza Vacc ine (#1) [facility] CHLAMYDIA TRACHOMATI S (GENITO/STI) CHLAMYDIA TRACHOMATIS (GENITO/STI) Lab Routine Exposure to STD Ordered: 10/26/2023 [facility] Comment on above: Ordered: 10/26/2023 Cytology Cervical or vaginal smear or scraping study Pap Smear Pathology and Cytology Routine Well woman exam with routine gynecological exam Ordered: 10/26/2023 [facility] Work Phone: Comment on above: Ordered: 10/26/2023 Human papilloma viru s DNA [Presence] in Unspecified specimen by Probe with amplification HPV DNA probe, amplified Microbiology Routine Well woman exam with routine gynecological exam Ordered: 10/26/2023 [facility] Comment on above: Ordered: 10/26/2023 Neisseria gonorrhoea e DNA [Presence] in Unspecified specimen by DIPAK with probe detection Neisseria gonorrhea DNA probe, direct Lab Routine Exposure to STD Ordered: 10/26/2023 [facility] Comment on above: Ordered: 10/26/2023 SURESWAB(R) ADVANCED VAGINITIS PLUS, TMA SURESWAB(R) ADVANCED VAGINITIS PLUS, TMA Pathology and Cytology Routine Vaginal discharge Ordered: 10/26/2023 [facility] Comment on above: Ordered: 10/26/2023 Payers Date Payer Category Payer Private Health Insurance [employer] [id number] 2023 Unknown [employer] [id number] 2023-Present [address] [id number] [id number] 2023 Unknown [id number] 1990 Unknown [id number] [id number]. 2.593 1990 Unknown [id number] [id number]. 2.1259 1990 Unknown [id number] [id number]. 2.1259 1990 Unknown [id number] [id number]. 2.1259 1990 Unknown [id number] [id number]. 2.1259 1992 Unknown [id number] [id number]. 2.1259 1992 Unknown [id number] [id number]. 2.1259 1992 Unknown [id number] [id number]. 2.9 1990 Unknown [id number] [id number]. 2.1259 1957 Self-pay [id number] Social History Date Type Detail Facility Start: 10-01-2023 Tobacco smoking stat [facility] Never smoked tobacco [facility] Start: 10-01-2023 Tobacco use and exposure Smoke less tobacco non-user [facility] Start: 10-26-2023 End: 03-08-2024 Alcoholic beverage intake Lifetime non-drinker (finding) [facility] Start: 10-01-2023 History of Social function [facility] Start: 10-01-2023 Tobacco use panel [facility] Start: 07-12-2023 [facility] Start: 1990 Sex assigned at Not on file N [facility] Clinical Notes 10-26-2023 to 03-08-2024 RASHEED Rivera - 03/08/2024 10:50 AM Dana Montero, SILAS - 02/29/2024 2:30 PM Brisa Ramos LPN - 02/15/2024 2:[address] [facility] - 01/27/2024 3:00 PM EST Note Date [...] nursing note reviewed. Exam conducted with a emergency vehicle operator present. Vitals: There is no height [...] of: RASHEED Rivera documented in this encounter [facility] 02-29-2024 History of Presen t illness Narrative [...] nursing note reviewed. Exam conducted with a emergency vehicle operator present. Vitals: There is no height [...] Slim Willard DO documented in this encounter [facility] 02-15-2024 History of Presen t illness Narrative [...] nursing note reviewed. Exam conducted with a emergency vehicle operator present. Vitals: There is no height [...] of: RASHEED Rivera documented in this encounter [facility] 01-27-2024 History of Presen t illness Narrative [...] nursing note reviewed. Exam conducted with a emergency vehicle operator present. Vitals: There is no height [...] Slim Willard DO documented in this encounter [facility] 01-13-2024 History of Presen t illness Narrative [...] of: RASHEED Rivera documented in this encounter [facility] 12-23-2023 History of Presen t illness Narrative [...] nursing note reviewed. Exam conducted with a emergency vehicle operator present. Vitals: There is no height [...] Slim Willard DO documented in this encounter [facility] 11-23-2023 History of Presen t illness Narrative [...] of: RASHEED Rivera documented in this encounter [facility] 10-26-2023 History of Presen t illness Narrative [...] nursing note reviewed. Exam conducted with a emergency vehicle operator present. Vitals: There is no height [...] obtained without difficulty and patient was given [facility] order to have obtained. New OB: Patient [...] or undercooked meat, and stay away from [facility]. 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 [facility] provides no warranty or guarantee of the accuracy or completeness of information in this document.
== END 2024-03-08 00:01 | disposition home or self-care (01) ==
LOC: LAB
PROVIDERS: Visit Provider Physician Assistant
DX: Z34.93 Encounter for supervision of normal pregnancy, unspecified, third trimester (principal)
CPT/HCPCS: 36415; 87081

== ENCOUNTER 2024-03-28 04:58 | Inpatient (IN) | payer OTHER, SELFPAY ==
[2024-03-28] VITALS (48 sets, daily range): BP systolic 92–156; BP diastolic 53–131; PULSE 59–85; TEMP 36.6–36.7
--- OUTSIDE RECORDS SUMMARY | 2024-03-28 05:03 | XMS_ITS | CCD ---
Author Organization [facility] Care Team Providers Care Pressure Controller Name Role Phone REQUEST, NONE LISTED Primary Care Unavailable VICTORIANO GR Consulting Unavailable ILEANA LOVE Admitting Unavailable KATE, ILEANA Attending Unavailable ILEANA LOVE Consulting Unavailable VINAY EMMANUEL Consulting Unavailable STACEY HARRIS Consulting Unavailable AGUBOSIDAVINA Duong Consulting Unavailable Burke Dennis MD Unavailable [phone] Unavailable Primary Care Provider UnavailTABATHA Eaton Attending Unavailable SUDHEER, SLIM Attending Unavailable SUDHEER, SLIM Attending Unavailable ELIZA, TABATHA Attending Unavailable ELIZA, TABATHA Attending Unavailable SUDHEER, SLIM Attending Unavailable ELIZA, TABATHA Attending Unavailable SUDHEER, SLIM Attending Unavailable ELIZA, TABATHA Attending Unavailable SUDHEER, SLIM Attending Unavailable Medications Completed/Discontinued Medications Medication Drug [...] of ] 01-27-2024 Episodic Residual codes; unclassified (17 sources) Gestation period, 33 weeks; Translations: [33 weeks gestation of ] Onset: 02-15-2024 02-15-2024 Episodic Residual codes; unclassified (2 sources) Gestation period, 35 weeks; Translations: [35 weeks gestation of ] 02-29-2024 Episodic Residual codes; unclassified (2 sources) Gestation period, 36 weeks; Translations: [36 weeks gestation of ] 03-08-2024 Episodic Residual codes; unclassified (2 sources) Gestation period, 37 weeks; Translations: [37 weeks gestation of ] 03-15-2024 Episodic Residual codes; unclassified (2 sources) Gestation period, 38 weeks; Translations: [38 weeks gestation of ] 03-22-2024 Episodic Screening and history of mental health [...] Range Facility Urinalysis macro (dipstick) panel (U)on 03-15-2024 Bilirubin, UA Negative Negative - 4(70) +++ mg/dL [facility] Blood, UA Negative Negative - 50 Ramiro/mcL [facility] Clarity, UA Clear [facility] Color, UA Yellow [facility] Healthcar e Glucose, UA Negative Negative - 1999(110) ++++ mg/dL [facility] Interpretation and review of laboratory results Abnormal [facility] Healthca re Ketones, UA Negative Negative - 160(16) ++++ mg/dL [facility] Leukocytes, UA Positive Negative - 500+++ Gilmer/mcL [facility] Comment on above: small Nitrite, UA Negative Negative - Positive [facility] pH, UA 7 5 - 9 [facility] Healthcar e Protein, UA Negative Negative - 1999(20) ++++ mg/dL [facility] Spec Grav, UA 1.015 1 - 1.03 [facility] Urobilinogen, UA 0.2 0.2 - 12 mg/dL [facility] ALL MISCELLANEOUS TESTon MISCELLANEOUS TEST COMMENT . [facility] H ealthcare Comment on above: Test Ordered: 185058 Strep Gp B Culture+Rflx Strep Gp B Culture+Rflx Negative CB Reference Range: Negative Centers for Disease Control and Prevention (CDC) and [place] Congress of Obstetricians and Gynecologists (ACOG) guidelines for prevention of group B streptococcal (GBS) disease specify co-collection of a vaginal and rectal swab specimen to maximize sensitivity of GBS detection. Per the CDC and ACOG, swabbing both the lower vagina and rectum substantially increases the yield of detection compared with sampling the vagina alone. Penicillin G, ampicillin, or cefazolin are indicated for intrapartum prophylaxis of GBS colonization. Reflex susceptibility testing should be performed prior to use of clindamycin only on GBS isolates from penicillin- allergic women who are considered a high risk for anaphylaxis. Treatment with vancomycin without additional testing is warranted if resistance to clindamycin is noted. Performed at: [facility] LabMichelle Ville [id number] Stock Pitcher: Willy Ma PhD, Phone: [phone] GROUP B STREP [id number] Group B Streptococcus Colonization Detection Culture With Re [facility] Urinalysis macro (dipstick) panel (U)Ordered By: Rubia Corbin on 03-08-2024 Bilirubin, UA Negative Negative - 4(70) +++ mg/dL [facility] [employer] Work Phone: Blood, UA Negative Negative - 50 Ramiro/mcL [facility] Healthcare Work Phone: Clarity, UA Clear [facility] Work Phone: Color, UA Yellow [facility] [employer] Work Phone: Glucose, UA Negative Negative - 1999(110) ++++ mg/dL [facility] [employer] Work Phone: Interpretation and review of laboratory results Normal [facility] [employer] re Work Phone: Ketones, UA Negative Negative - 160(16) ++++ mg/dL [facility] [employer] Work Phone: Leukocytes, UA Negative Negative - 500+++ Gilmer/mcL [facility] [employer] Work Phone: Nitrite, UA Negative Negative - Positive [facility] [employer] Work Phone: pH, UA 5.5 5 - 9 [facility] [employer] e Work Phone: Protein, UA Negative Negative - 1999(20) ++++ mg/dL [facility] [employer] Work Phone: Spec Grav, UA 1.025 1 - 1.03 [facility] Work Phone: Urobilinogen, UA 1.0 0.2 - 12 mg/dL [facility] [employer] Work Phone: [facility] [employer] Work Phone: Urinalysis macro (dipstick) panel (U)on 02-29-2024 Bilirubin, UA Negative Negative - 4(70) +++ mg/dL [facility] Blood, UA Negative Negative - 50 Ramiro/mcL [facility] Clarity, UA Clear [facility] [employer] re Color, UA Yellow [facility] [employer] Glucose, UA Negative Negative - 1999(110) ++++ mg/dL [facility] Interpretation and review of laboratory results Abnormal [facility] re Ketones, UA Positive Negative - 160(16) ++++ mg/dL [facility] Comment on above: trace Leukocytes, UA Negative Negative - 500+++ Gilmer/mcL [facility] Nitrite, UA Negative Negative - Positive [facility] pH, UA 6 5 - 9 [facility] [employer] Protein, UA Positive Negative - 1999(20) ++++ mg/dL [facility] Comment on above: 30 mg Spec Grav, UA 1.03 1 - 1.03 [facility] Urobilinogen, UA 0.2 0.2 - 12 mg/dL [facility] Healthcar e Urinalysis macro (dipstick) panel (U)on 02-15-2024 Bilirubin, UA Negative Negative - 4(70) +++ mg/dL [facility] Blood, UA Negative Negative - 50 Ramiro/mcL [facility] Clarity, UA Clear [facility] Color, UA Yellow [facility] Glucose, UA Negative Negative - 1999(110) ++++ mg/dL [facility] Interpretation and review of laboratory results Abnormal [facility] Ketones, UA Negative Negative - 160(16) ++++ mg/dL [facility] Leukocytes, UA Negative Negative - 500+++ Gilmer/mcL [facility] Nitrite, UA Negative Negative - Positive [facility] pH, UA 7 5 - 9 [facility] Protein, UA Few Negative - 1999(20) ++++ mg/dL [facility] Comment on above: 30mg/dL Spec Grav, UA 1.025 1 - 1.03 [facility] care Urobilinogen, UA 0.2 0.2 - 12 mg/dL [facility] Urinalysis macro (dipstick) panel (U)on 01-27-2024 Bilirubin, UA Negative Negative - 4(70) +++ mg/dL [facility] Blood, UA Negative Negative - 50 Ramiro/mcL [facility] Clarity, UA Clear [facility] Color, UA Yellow [facility] Healthcar e Glucose, UA Negative Negative - 1999(110) ++++ mg/dL [facility] Interpretation and review of laboratory results Normal [facility] Ketones, UA Negative Negative - 160(16) ++++ mg/dL [facility] Leukocytes, UA Negative Negative - 500+++ Gilmer/mcL [facility] Nitrite, UA Negative Negative - Positive [facility] pH, UA 5 5 - 9 [facility] Healthcar e Protein, UA Negative Negative - 1999(20) ++++ mg/dL [facility] Spec Grav, UA 1.01 1 - 1.03 [facility] care Urobilinogen, UA 0.2 0.2 - 12 mg/dL [facility] Urinalysis macro (dipstick) panel (U)on 01-13-2024 Bilirubin, UA Negative Negative - 4(70) +++ mg/dL [facility] Blood, UA Negative Negative - 50 Ramiro/mcL [facility] Clarity, UA Clear [facility] Color, UA Yellow [facility] Glucose, UA Negative Negative - 1999(110) ++++ mg/dL [facility] Interpretation and review of laboratory results Normal [facility] Ketones, UA Negative Negative - 160(16) ++++ mg/dL [facility] Leukocytes, UA Negative Negative - 500+++ Gilmer/mcL [facility] Nitrite, UA Negative Negative - Positive [facility] pH, UA 7 5 - [facility] Protein, UA Negative Negative - 2000(20) ++++ mg/dL [facility] Spec Grav, UA 1.015 1 - 1.03 [facility] Urobilinogen, UA 0.2 0.2 - 12 mg/dL [facility] Healthcar e ALL CBC WITH AUTO DIFFon BASOPHILS ABSOLUTE AUTO 0 [facility] Basophils/100 WBC (Bld) 0.4 % 0.2 - 2.0 % [facility] Eosinophils/100 WBC (Bld) 0.6 % Low 0.9 - 7.0 % [facility] Erythrocyte distribution width (RBC) [Ratio] 13 % 11.0 - 15.0 % [facility] Hematocrit (Bld) [Volume fraction] 34.2 % Low 36.0 - 48.0 % [facility] Hemoglobin (Bld) [Mass/Vol] 11.8 g/dL Low 12.0 - 16.0 g/dL [facility] IMMATURE GRANULOCYTES ABS AUTO 0.04 High [facility] Immature granulocytes/100 WBC (Bld) 0.4 % 0.0 - 0.5 % [facility] Interpretation and review of laboratory results Abnormal [facility] re LYMPHOCYTES ABSOLUTE AUTO 1.9 [facility] Lymphocytes/100 WBC (Bld) 19.2 % Low 20.5 - 60.0 % [facility] MCH (RBC) [Entitic mass] 31.6 pg 26.7 - 34.0 pg [facility] MCHC (RBC) [Mass/Vol] 34.5 g/dL 29.9 - 35.2 g/dL [facility] MCV (RBC) [Entitic vol] 91.4 fL 81.0 - 99.0 fL [facility] MONOCYTES ABSOLUTE AUTO 0.6 [facility] Monocytes/100 WBC (Bld) 6 % 1.7 - 12.0 % [facility] NEUTROPHILS ABSOLUTE AUTO 7.3 High [facility] Neutrophils/100 WBC (Bld) 73.4 % 43.0 - 75.0 % [facility] Platelet mean volume (Bld) [Entitic vol] 9.1 fL Low 9.5 - 13.5 fL [facility] TB EO # 0.1 [facility] PLT 231 [facility] Healthcar e TB RBC 3.74 Low [facility] Healthcar e TB WBC 10 [facility] Healthcar e [facility] Healthcar e Urinalysis macro (dipstick) panel (U)on 12-23-2023 Bilirubin, UA Positive Negative - 4(70) +++ mg/dL [facility] Comment on above: small Blood, UA Negative Negative - 50 Ramiro/mcL [facility] Clarity, UA Clear [facility] re Color, UA Nadia [facility] e Glucose, UA Negative Negative - 1999(110) ++++ mg/dL [facility] Interpretation and review of laboratory results Abnormal [facility] re Ketones, UA Positive Negative - 160(16) ++++ mg/dL [facility] Comment on above: trace Leukocytes, UA Negative Negative - 500+++ Gilmer/mcL [facility] Nitrite, UA Negative Negative - Positive [facility] pH, UA 5.5 5 - 9 [facility] Protein, UA Trace Negative - 1999(20) ++++ mg/dL [facility] Spec Grav, UA 1.03 1 - 1.03 [facility] Urobilinogen, UA 0.2 0.2 - 12 mg/dL [facility] Healthcar e ALL CBC WITH AUTO DIFFon BASOPHILS ABSOLUTE AUTO 0.0 [facility] Basophils/100 WBC (Bld) 0.3 % 0.2 - 2.0 % [facility] Eosinophils/100 WBC (Bld) 0.6 % Low 0.9 - 7.0 % [facility] Erythrocyte distribution width (RBC) [Ratio] 13.6 % 11.0 - 15.0 % [facility] Hematocrit (Bld) [Volume fraction] 33.7 % Low 36.0 - 48.0 % [facility] Healthcar e Hemoglobin (Bld) [Mass/Vol] 11.5 g/dL Low 12.0 - 16.0 g/dL [facility] IMMATURE GRANULOCYTES ABS AUTO 0.05 High [facility] Immature granulocytes/100 WBC (Bld) 0.5 % 0.0 - 0.5 % [facility] Interpretation and review of laboratory results Abnormal [facility] re LYMPHOCYTES ABSOLUTE AUTO 2.2 [facility] Lymphocytes/100 WBC (Bld) 22.0 % 20.5 - 60.0 % [facility] MCH (RBC) [Entitic mass] 30.9 pg 26.7 - 34.0 pg [facility] MCHC (RBC) [Mass/Vol] 34.1 g/dL 29.9 - 35.2 g/dL [facility] MCV (RBC) [Entitic vol] 90.6 fL 81.0 - 99.0 fL [facility] MONOCYTES ABSOLUTE AUTO 0.5 [facility] Monocytes/100 WBC (Bld) 5.3 % 1.7 - 12.0 % [facility] NEUTROPHILS ABSOLUTE AUTO 7.2 High [facility] Neutrophils/100 WBC (Bld) 71.3 % 43.0 - 75.0 % [facility] Platelet mean volume (Bld) [Entitic vol] 9.4 fL Low 9.5 - 13.5 fL [facility] TBH EO # 0.1 [facility] PLT 255 [facility] TB RBC 3.72 Low [facility] TB WBC 10.1 [facility] Healthcar e [facility] Healthcar e Urinalysis macro (dipstick) panel (U)on 11-23-2023 Bilirubin, UA Negative Negative - 4(70) +++ mg/dL [facility] Blood, UA Negative Negative - 50 Ramiro/mcL [facility] Clarity, UA Clear [facility] re Color, UA Yellow [facility] e Glucose, UA Negative Negative - 1999(110) ++++ mg/dL [facility] Interpretation and review of laboratory results Abnormal [facility] re Ketones, UA Positive Negative - 160(16) ++++ mg/dL [facility] Comment on above: 40 Leukocytes, UA Trace Negative - 500+++ Gilmer/mcL [facility] Nitrite, UA Negative Negative - Positive [facility] pH, UA 7.0 5 - 9 [facility] e Protein, UA Negative Negative - 1999(20) ++++ mg/dL [facility] Spec Grav, UA 1.030 1 - 1.03 [facility] Urobilinogen, UA 0.2 0.2 - 12 mg/dL [facility] Healthcar e IGP,APTIMA HPV,AGE GDLNon AGE GDLN ACOG TESTING Note . [facility] Comment on above: TESTS RESULT FLAG UN ITS REF RANGE LAB Clinician Provided Cytology Information Source.............Cervix No. of containers..01 ThinPrep Vial Age Algo ACOG Laura... 30-65 FLAG LEGEND: L-Low Normal,H-High Normal,LL-Alert Low,HH-Alert High <-Panic Low,>-Panic High,A-Abnormal,AA-Critical Abnormal Performed at: 01 =G [address] [id number] Jen Correa MD, HPV APTIMA Positive Abnormal Negative [facility] Health[facility] Comment on above: This nucleic acid am plification test detects fourteen high- risk HPV types (16,18,31,33,35,39,45,51,52,56,58,59,66,68) without differentiation. HPV GENOTYPE 16 Negative Negative [facility] HPV GENOTYPE 18,45 Positive Abnormal Negative [facility] Comment on above: Performed at: =G - L [facility] [address] [id number] Stock Pitcher: Jen Correa MD, Phone: [phone] Performed at: [facility] [address] [id number] Stock Pitcher: Jen Correa MD, Phone: [phone] IGP, APTIMA HPV, RFX 16/18,45 Note . [facility] Comment on above: TESTS RESULT FLAG UN ITS REF RANGE LAB DIAGNOSIS: 02 NEGATIVE FOR INTRAEPITHELIAL LESION OR MALIGNANCY. FUNGAL ORGANISMS MORPHOLOGICALLY CONSISTENT WITH JOSE LUIS SPECIES ARE PRESENT. Specimen adequacy: 02 Satisfactory for evaluation. No endocervical component is identified. Performed by: 02 Stacey Nevarez, Rubber Molder . 02 Note: Note 02 The Pap [...] <-Panic Low,>-Panic High,A-Abnormal,AA-Critical Abnormal Performed at: [address] [place] [address] Jen Correa MD, Interpretation and review of laboratory results Abnormal [facility] SPATULA-ALONE CERVIX [facility] URETHRITIS/DISCHARGE PLUS VA GINITIS (HTRX)on 10-27-2023 ATOPOBIUM VAGINAE 0.000 [facility] ATOPOBIUM VAGINAE Not detected [facility] BVAB 2,3 (BACTERIAL VAGINOSIS ASSOCIATED BACTERIA 2, 3); MOBILUNCUS SPP 0.000 [facility] BVAB 2,3 (BACTERIAL VAGINOSIS ASSOCIATED BACTERIA 2, 3); MOBILUNCUS SPP Not detected [facility] JOSE LUIS ALBICANS, PARAPSILOSIS, TROPICALIS 29.119 Abnormal [facility] JOSE LUIS ALBICANS, PARAPSILOSIS, TROPICALIS Detected Abnormal [facility] JOSE LUIS GLABRATA 0.000 [facility] JOSE LUIS GLABRATA Not [facility] JOSE LUIS KRUSEI 0.000 [facility] Healt hcare JOSE LUIS KRUSEI Not detected [facility] CHLAMYDIA TRACHOMATIS 0.000 [facility] CHLAMYDIA TRACHOMATIS Not detected [facility] GARDNERELLA VAGINALIS 0.000 [facility] GARDNERELLA VAGINALIS Not detected [facility] Interpretation and review of laboratory results Abnormal [facility] Healthca re MEGASPHAERA (TYPES 1, 2) 0.000 [facility] MEGASPHAERA (TYPES 1, 2) Not detected [facility] MYCOPLASMA GENITALIUM 0.000 [facility] MYCOPLASMA GENITALIUM Not detected [facility] NEISSERIA GONORRHOEAE 0.000 [facility] NEISSERIA GONORRHOEAE Not detected [facility] TRICHOMONAS VAGINALIS 0.000 [facility] TRICHOMONAS VAGINALIS Not detected [facility] Urinalysis macro (dipstick) panel (U)on 10-26-2023 Bilirubin, UA Negative Negative - (70) +++ mg/dL [facility] Blood, UA Negative Negative - 50 Ramiro/mcL [facility] Clarity, UA Clear [facility] Healthpr re Color, UA Yellow [facility] Healthcar e Glucose, UA Negative Negative - 1999(110) ++++ mg/dL [facility] Interpretation and review of laboratory results Abnormal [facility] Healthca re Ketones, UA Negative Negative - 160(16) ++++ mg/dL [facility] Leukocytes, UA Positive Negative - 500+++ Gilmer/mcL [facility] Comment on above: small Nitrite, UA Negative Negative - Positive [facility] pH, UA 8.5 5 - 9 [facility] Healthcar e Protein, UA Negative Negative - 1999(20) ++++ mg/dL [facility] Spec Grav, UA 1.020 1 - 1.03 [facility] Urobilinogen, UA 0.2 0.2 - 12 mg/dL [facility] ABO AND RH TYPEon 11-01-2018 ABO and Rh group Nom (Bld) ABO Rh Typing A Rh Positive Normal [facility] Comment on above: Performed By: #### A EBER #### [facility] [address] [place], [place] [id number] Bartolo Escobedo CARDIAC JUDITH ADMITon 019 CK [Catalytic activity/Vol] 38 U/L Normal 30-135 [facility] Comment on above: Performed By: #### C MP, CMADM, PREGQNT #### [facility] [address] [place] [address] Bartolo Escobedo CK.MB [Mass/Vol] ng/mL Normal <=2.37 [facility] Comment on above: Performed By: #### C MP, CMADM, PREGQNT #### [facility] [address] [place] [address] Bartolo Escobedo INR Coag (Bld) [Relative time] SEE BELOW Normal [facility] Comment on above: Result Comment: <0.0 34 ng/ml NEGATIVE 0.034-0.119 INDETERMINATE 0.120 AMI CUT OFF Performed By: #### C MP, CMADM, PREGQNT #### [facility] [address] [place] [address] Bartolo Fanny MADELINE 16.0 ng/mL Normal <=61.5 [facility] Comment on above: Performed By: #### C MP, CMADM, PREGQNT #### [facility] [address] [place], [place] [id number] Bartolo Fanny TROP <0.017 Normal <=0.034 [facility] Comment on above: Performed By: #### C MP, CMADM, PREGQNT #### [facility] [address] [place], [place] [id number] Bartolo Fanny CBC AUTO DIFFon 11-01-2018 Basophils (Bld) [#/Vol] 0.0 103/ul Normal 0.0-0.1 [facility] Comment on above: Performed By: #### C BC #### [facility] [address] [place] [address] Bartolo Fanny Basophils/100 WBC (Bld) 0.2 % Normal 0.2-2.0 [facility] Comment on above: Performed By: #### C BC #### [facility] [address] [place] [address] Bartolo Fanyn Eosinophils (Bld) [#/Vol] 0.0 103/ul Normal 0.0-0.7 [facility] Comment on above: Performed By: #### C BC #### [facility] [address] [place] [address] Bartolo Fanny Eosinophils/100 WBC (Bld) 0.2 % Critically low 0.9-7.0 [facility] Comment on above: Performed By: #### C BC #### [facility] [address] [place] [address] Bartolo Fanny Erythrocyte distribution width (RBC) [Ratio] 12.7 % Normal 11.0-15.0 [facility] Comment on above: Performed By: #### C BC #### [facility] [address] [place] [address] Bartolo Fanny Hematocrit (Bld) [Volume fraction] 33.1 % Critically low 36.0-48.0 [facility] Comment on above: Performed By: #### C BC #### [facility] [address] [place] [address] Bartolo Fanny Hemoglobin (Bld) [Mass/Vol] 11.3 g/dL Critically low 12.0-16.0 [facility] Comment on above: Performed By: #### C BC #### [facility] [address] [place] [address] Bartolo Fanny IG # 0.03 10e3/ul Normal 0.00-0.03 [facility] Comment on above: Performed By: #### C BC #### [facility] [address] [place] [address] Bartolo Fanny IG % 0.2 % Normal 0.0-0.5 [facility] Comment on above: Performed By: #### C BC #### [facility] [address] [place] [address] Bartolo Fanny Lymphocytes (Bld) [#/Vol] 1.8 103/ul Normal 1.2-3.8 [facility] Comment on above: Performed By: #### C BC #### [facility] [address] [place], [place] [id number] Bartolo Fanny Lymphocytes/100 WBC (Bld) 13.9 % Critically low 20.5-60.0 [facility] Comment on above: Performed By: #### C BC #### [facility] [address] [place] [address] Bartolo Fanny MANUAL DIFF REQ NO Normal [facility] Comment on above: Performed By: #### C BC #### [facility] [address] [place], [place] [id number] Bartolo Fanny MCH (RBC) [Entitic mass] 29.7 pg Normal 26.7-34.0 [facility] Comment on above: Performed By: #### C BC #### [facility] [address] [place] [address] Bartolo Fanny MCHC (RBC) [Mass/Vol] 34.1 g/dL Normal 29.9-35.2 [facility] Comment on above: Performed By: #### C BC #### [facility] [address] [place] [address] Bartolo Fanny MCV (RBC) [Entitic vol] 87.1 fL Normal 81.0-99.0 [facility] Comment on above: Performed By: #### C BC #### [facility] [address] [place] [address] Bartolo Fanny Monocytes (Bld) [#/Vol] 0.4 103/ul Normal 0.3-0.8 [facility] Comment on above: Performed By: #### C BC #### [facility] [address] [place], [place] [id number] Bartolo Fanny Monocytes/100 WBC (Bld) 3.1 % Normal 1.7-12.0 [facility] Comment on above: Performed By: #### C BC #### [facility] [address] [place], [place] [address] Bartolo Fanny Neutrophils (Bld) [#/Vol] 10.8 103/ul Critically high 1.4-6.5 [facility] Comment on above: Performed By: #### C BC #### [facility] [address], [place] [address] Bartolo Fanny Neutrophils/100 WBC (Bld) 82.4 % Critically high 43.0-75.0 [facility] Comment on above: Performed By: #### C BC #### [facility] [address], [place] [address] Bartolo Fanny Platelet mean volume (Bld) [Entitic vol] 10.4 fL Normal 9.5-13.5 [facility] Comment on above: Performed By: #### C BC #### [facility] [address] [place] [address] Bartolo Fanny Platelets (Bld) [#/Vol] 255 103/ul Normal 150-450 [facility] Comment on above: Performed By: #### C BC #### [facility] [address], [place] [address] Bartolo Fanny RBC (Bld) [#/Vol] 3.80 106/ul Critically low 4.20-5.40 [facility] Comment on above: Performed By: #### C BC #### [facility] [address] [place] [address] Bartolo Fanny WBC (Bld) [#/Vol] 13.1 103/ul Critically high 4.0-11.0 [facility] Comment on above: Performed By: #### C BC #### [facility] [address] [place] [address] C-SPINE WO CONon 11-02-[address] C-SPINE WO CON Patient: LIZZ ZACARIAS Exam Date: 11/01/2018 : 1990 Gender:F Ordering : RASHEED IQBAL Admission #: [id number] Family : DR VICTORIANO GR D.O. Order #: [id number] CLICK HERE TO VIEW EXAM RADIOLOGY REPORT [...] M.D. on 11/01/2018 at 15:02 Normal [facility] CT HEAD WO CONon 11-01-2018 CT HEAD WO CON Patient: LIZZ ZACARIAS Exam Date: 11/01/2018 : 1990 Gender:F Ordering : RASHEED IQBAL Admission #: [id number] Family : DR VICTORIANO GR D.O. Order #: [id number] CLICK HERE TO VIEW EXAM RADIOLOGY REPORT [...] M.D. on 11/01/2018 at 14:59 Normal [facility] PREG QUANT HCGon 11-01-2018 HCG QUANT 1500.00 mIU/mL Normal [facility] Comment on above: Performed By: #### C MP, CMADM, PREGQNT #### [facility] [address] [place], [place] [address] Bartolo Fanny HCG RANGE SEE BELOW Normal [facility] Comment on above: Result Comment: 5-50 0-1 WEEK 40-300 1-2 WEEKS 100-1,000 2-3 WEEKS 500-6,000 3-4 WEEKS 5,000-200,000 1-2 MONTHS 10,000-100,000 2-3 MONTHS 3,000-50,000 2ND TRIMESTER 1,000-50,000 3RD TRIMESTER Performed By: #### C MP, CMADM, PREGQNT #### [facility] [address], [place] [address] Bartolotanvir Escobedo PROF 14(COMP METB)on 019 Albumin [Mass/Vol] 3.5 g/dL Normal 3.5-5.0 [facility] Comment on above: Performed By: #### C MP, CMADM, PREGQNT #### [facility] [address] [place] [address] Bartolotanvir Escobedo Albumin/Globulin [Mass ratio] 0.9 {ratio} Normal [facility] Comment on above: Performed By: #### C MP, CMADM, PREGQNT #### [facility] [address], [place] [address] Bartolo Fanny ALP [Catalytic activity/Vol] 43 U/L Normal 38-126 [facility] Comment on above: Performed By: #### C MP, CMADM, PREGQNT #### [facility] [address] [place] [address] Bartolo Fanny ALT [Catalytic activity/Vol] 12 U/L Normal 9-52 [facility] Comment on above: Performed By: #### C MP, CMADM, PREGQNT #### [facility] [address], [place] [address] Bartolo Fanny Anion gap [Moles/Vol] 13.8 mmol/L Normal [facility] Comment on above: Performed By: #### C MP, CMADM, PREGQNT #### [facility] [address], [place] [address] Bartolo Fanny AST [Catalytic activity/Vol] 12 U/L Critically low 14-36 [facility] Comment on above: Performed By: #### C MP, CMADM, PREGQNT #### [facility] [address] [place] [address] Bartolo Fanny Bilirubin Ql (U) 0.7 mg/dL Normal 0.2-1.3 [facility] Comment on above: Performed By: #### C MP, CMADM, PREGQNT #### [facility] [address] [place] [address] Bartolo Fanny Calcium [Mass/Vol] 8.7 mg/dL Normal 8.4-10.2 [facility] Comment on above: Performed By: #### C MP, CMADM, PREGQNT #### [facility] [address] [place] [address] Bartolo Fanny Chloride [Moles/Vol] 104 mmol/L Normal 98-107 [facility] Comment on above: Performed By: #### C MP, CMADM, PREGQNT #### [facility] [address] [place] [address] Bartolo Fanny CO2 [Moles/Vol] 22.7 mmol/L Normal 22.0-30.0 [facility] Comment on above: Performed By: #### C MP, CMADM, PREGQNT #### [facility] [address] [place] [address] Bartolo Fanny Creatinine [Mass/Vol] 0.67 mg/dL Normal 0.52-1.04 [facility] Comment on above: Performed By: #### C MP, CMADM, PREGQNT #### [facility] [address] [place] [address] Bartolo Fanny EGFR-AF BULGARIAN >60 Normal >=60 [facility] Comment on above: Performed By: #### C MP, CMADM, PREGQNT #### [facility] [address] [place] [address] Bartolo Fanny EGFR-NON AF BULGARIAN >60 Normal >=60 [facility] Comment on above: Performed By: #### C MP, CMADM, PREGQNT #### [facility] [address] [place] [address] Bartolo Fanny Globulin (S) [Mass/Vol] 4.0 g/dL Normal [facility] Comment on above: Performed By: #### C MP, CMADM, PREGQNT #### [facility] [address] [place] [address] Bartolo Fanny Glucose [Mass/Vol] 113 mg/dL Critically high 74-[address] [facility] Comment on above: Performed By: #### C MP, CMADM, PREGQNT #### [facility] [address] [place] [address] Bartolo Fanny Potassium [Moles/Vol] 3.5 mmol/L Normal 3.4-5.0 [facility] Comment on above: Performed By: #### C MP, CMADM, PREGQNT #### [facility] [address] [place] [address] Bartolo Fanny Protein [Mass/Vol] 7.5 g/dL Normal 6.1-8.2 [facility] Comment on above: Performed By: #### C MP, CMADM, PREGQNT #### [facility] [address] [place] [address] Bartolo Fanny Sodium [Moles/Vol] 137 mmol/L Normal 137-145 [facility] Comment on above: Performed By: #### C MP, CMADM, PREGQNT #### [facility] [address] [place] [address] Bartolo Fanny Urea nitrogen [Mass/Vol] 10.0 mg/dL Normal 7.0-17.0 [facility] Comment on above: Performed By: #### C MP, CMADM, PREGQNT #### [facility] [address] [place] [address] Bartolo Fanny Urea nitrogen/Creatinine [Mass ratio] 14.9 mg/mg Normal [facility] Comment on above: Performed By: #### C MP, CMADM, PREGQNT #### [facility] [address] [place], [place] [id number] Bartolo Fanny PROTIMEon 11-01-2018 INR Coag (PPP) [Relative time] 1.02 {INR} Normal [facility] Comment on above: Performed By: #### P T, PTT #### [facility] [address] [place], [place] [address] Bartolo Fanny PT Coag (PPP) [Time] PLEASE NOTE: NORMAL RANGE CHANGE 11-03-2013 DUE TO REAGENT LOT CHANGE Normal [facility] Comment on above: Performed By: #### P T, PTT #### [facility] [address] [place], [place] [address] Bartolo Fanny PT Coag (PPP) [Time] 10.6 s Normal 9.0-11.6 [facility] Comment on above: Performed By: #### P T, PTT #### [facility] [address] [place] [id number] Bartolo Fanny PT Coag (PPP) [Time] SEE BELOW Normal [facility] Comment on above: Result Comment: AKIL RED INR: 2.0 - 3.0 CONDITIONS NOT LISTED BELOW 2.5 - 3.5 FOR PROSTHETIC HEART VALVE REPLACEMENT 2.5 - 3.5 RECURRENT THROMBOSIS Performed By: #### P T, PTT #### [facility] [address] [place], [place] [address] Bartolo Fanny PTTon 11-01-2018 aPTT Coag (Bld) [Time] PLEASE NOTE: NORMAL RANGE CHANGE 01-10-2015 DUE TO REAGENT LOT CHANGE Normal [facility] Comment on above: Performed By: #### P T, PTT #### [facility] [address] [place], [place] [address] Bartolo Fanny aPTT Coag (Bld) [Time] 21.6 s Critically low 22.3-36.2 [facility] Comment on above: Performed By: #### P T, PTT #### [facility] [address], [place] [address] Bartolo Fanny TYPE AND SCREENon 11-01-2018 TYPE AND SCREEN Negative Normal [facility] Comment on above: Performed By: #### P T, PTT #### [facility] [address] [place], [place] [address] Bartolo Fanny US PREG <14 WKSon 11-01-2018 US PREG <14 WKS Patient: LIZZ ZACARIAS Exam Date: 11/01/2018 : 1990 Gender:F Ordering : RASHEED IQBAL Admission #: [id number] Family : DR VICTORIANO GR D.O. Order #: [id number] CLICK HERE TO VIEW EXAM RADIOLOGY REPORT [...] Emmanuel M.D. on 11/01/2018 at 15:43 Normal [facility] Vital Signs Date Time Vital Sign Value Performing Clinician Alejandroi edward 03-22-2024 08:57-0500 Body weight 93.17 kg Tabatha IQBAL Work Phone: [facility] 03-22-2024 08:57-0500 Diastolic blood pressure 68 mm[Hg] Tabatha IQBAL Work Phone: [facility] 03-22-2024 08:57-0500 Systolic blood pressure 112 mm[Hg] Tabatha IQBAL Work Phone: [facility] 03-15-2024 08:52-0500 Body weight 92.53 kg Slim Sudheer DO Work Phone: [facility] 03-15-2024 08:52-0500 Diastolic blood pressure 70 mm[Hg] Slim Sudheer DO Work Phone: [facility] 03-15-2024 08:52-0500 Systolic blood pressure 122 mm[Hg] Slim Sudheer DO Work Phone: [facility] 03-08-2024 11:50-0500 Body weight 91.54 kg Tabatha Eliza PA Work Phone: [facility] 03-08-2024 11:50-0500 Diastolic blood pressure 74 mm[Hg] Tabatha Eliza PA Work Phone: [facility] 03-08-2024 11:50-0500 Systolic blood pressure 120 mm[Hg] Tabatha Eliza PA Work Phone: [facility] 02-29-2024 14:54-0500 Body weight 89.81 kg Slim Sudheer DO Work Phone: [facility] 02-29-2024 14:54-0500 Diastolic blood pressure 70 mm[Hg] Slim Sudheer DO Work Phone: [facility] 02-29-2024 14:54-0500 Systolic blood pressure 120 mm[Hg] Slim Sudheer DO Work Phone: [facility] 02-15-2024 14:26-0500 Body weight 88.81 kg Tabatha Kay PA Work Phone: [facility] 02-15-2024 14:26-0500 Diastolic blood pressure 72 mm[Hg] Tabatha Eliza PA Work Phone: [facility] 02-15-2024 14:26-0500 Systolic blood pressure 108 mm[Hg] Tabatha Kay PA Work Phone: [facility] 01-27-2024 15:40-0500 Body weight 87.09 kg Slim Sudheer DO Work Phone: [facility] 01-27-2024 15:40-0500 Diastolic blood pressure 58 mm[Hg] Slim Sudheer DO Work Phone: [facility] 01-27-2024 15:40-0500 Systolic blood pressure 110 mm[Hg] Slim Sudheer DO Work Phone: [facility] 01-13-2024 10:15-0500 Body weight 83.83 kg Tabatha Kay PA Work Phone: [facility] 01-13-2024 10:15-0500 Diastolic blood pressure 56 mm[Hg] Tabatha Eliza PA Work Phone: [facility] 01-13-2024 10:15-0500 Systolic blood pressure 100 mm[Hg] Tabatha IQBAL Work Phone: [facility] 12-23-2023 15:41-0500 Body weight 83.01 kg Slim Sudheer DO Work Phone: [facility] 12-23-2023 15:41-0500 Diastolic blood pressure 68 mm[Hg] Slim Sudheer DO Work Phone: [facility] 12-23-2023 15:41-0500 Systolic blood pressure 110 mm[Hg] Slim Sudheer DO Work Phone: [facility] 11-23-2023 15:29-0400 Body weight 79.83 kg Tabatha IQBAL Work Phone: [facility] 11-23-2023 15:29-0400 Diastolic blood pressure 64 mm[Hg] Tabatha IQBAL Work Phone: [facility] 11-23-2023 15:29-0400 Systolic blood pressure 118 mm[Hg] Tabatha IQBAL Work Phone: [facility] 10-26-2023 09:35-0400 Body weight 77.02 kg Slim Sudheer DO Work Phone: [facility] 10-26-2023 09:35-0400 Diastolic blood pressure 58 mm[Hg] Slim Sudheer DO Work Phone: [facility] 10-26-2023 09:35-0400 Systolic blood pressure 110 mm[Hg] Slim Sudheer DO Work Phone: [facility] Healthcare Encounters Encounter Date Encounter Type Care Provider Facility Start: 03-22-2024 End: 03-22-2024 Bamboo flowsheet Tabatha IQBAL Work Phone: [facility] Start: 03-22-2024 End: 03-22-2024 Bamboo flowsheet Tabatha IQBAL Work Phone: [facility] Start: 03-22-2024 End: 03-22-2024 flow sheet Tabatha IQBAL Work Phone: [facility] Comment on above: Third trimester preg raj; 38 weeks gestation of Start: 03-22-2024 End: 03-22-2024 ambulatory TABATHA KAY Not Available Start: 03-15-2024 End: 03-15-2024 Bamboo flowsheet Slim Sudheer DO Work Phone: [facility] Start: 03-15-2024 End: 03-15-2024 Bamboo flowsheet Slim Sudheer DO Work Phone: [facility] Start: 03-15-2024 End: 03-15-2024 flow sheet Slim Sudheer DO Work Phone: [facility] Comment on above: Third trimester preg raj; 37 weeks gestation of Start: 03-15-2024 End: 03-15-2024 ambulatory SLIM SUDHEER Not Available Start: 03-08-2024 End: 03-08-2024 Bamboo flowsheet Tabatha IQBAL Work Phone: [facility] Start: 03-08-2024 End: 03-13-2024 Bamboo flowsheet Tabatha IQBAL Work Phone: [facility] Start: 03-08-2024 End: 03-13-2024 Clinisync Result Encounter Tabatha IQBAL Work Phone: [facility] External Department Unsolicited Start: 03-08-2024 End: 03-08-2024 flow sheet Tabatha IQBAL Work Phone: [facility] Comment on above: Third trimester preg raj; 36 weeks gestation of Start: 03-08-2024 End: 03-08-2024 ambulatory TABATHA KAY Not Available Start: 02-29-2024 End: 02-29-2024 flow sheet Slim [...] DO Work Phone: [facility] Start: 12-23-2023 End: 12-23-2023 Bamboo [...] DO Work Phone: [facility] Start: 10-26-2023 End: 10-30-2023 Clinisync Result Encounter Slim Sudheer DO Work Phone: [facility] Unsolicited Start: 10-26-2023 End: 10-30-2023 Clinisync Result Encounter Slim Sudheer DO Work Phone: [facility] Unsolicited Start: 10-26-2023 End: 10-27-2023 External Result Encounter Slim Sudheer DO Work Phone: [facility] Unsolicited Start: 10-26-2023 End: 10-26-2023 Patient encounter procedure Slim Sudheer DO Work Phone: [facility] Start: 10-26-2023 End: 10-26-2023 Periodic preventive med est patient 18-39 yrs Slim Sudheer DO Work Phone: [facility] Comment on above: 17 weeks gestation o f ; Well woman exam with routine gynecological exam; Exposure to STD; Vaginal discharge; Screening, , for anatomic survey Start: 10-26-2023 End: 10-26-2023 ambulatory SLIM SUDHEER Not Available Start: 10-01-2023 End: 10-01-2023 ambulatory TABATHA KAY Not Available Start: 11-01-2018 End: 11-01-2018 Patient encounter procedure NONE LISTED REQUEST Facility: Procedures Date Procedure Procedure Detail Performing Clinician Start: 03-15-2024 Urnls dip stick/tabl et rgnt non-auto w/o micrscp Slim Sudheer DO Work Phone: Start: 03-08-2024 Urnls dip stick/tabl et rgnt non-auto w/o micrscp Slim Sudheer DO Work Phone: Start: 03-08-2024 ALL MISCELLANEOUS TEST Tabatha Kay PA Work Phone: Start: 02-29-2024 Urnls dip stick/tabl [...] ant neoplasm of cervix [facility] Start: 03-22-2024 End: 03-22-2024 Patient encounter procedure [facility] Comment on above: Arrived Start: 03-15-2024 End: 03-15-2024 Patient encounter procedure [facility] Comment on above: Arrived Start: 03-08-2024 End: 03-08-2025 CULTURE, GROUP B STREP WITH SUSCEPTIBLITY CULTURE, GROUP B STREP WITH SUSCEPTIBLITY Lab Routine Third trimester Expected: 03/08/2024, Expires: 03/08/2025 [facility] Work Phone: Comment on above: Expected: 03/08/2024 , Expires: 03/08/2025 Start: 03-08-2024 End: 03-08-2024 Patient encounter procedure [facility] Comment on above: Arrived Start: 02-29-2024 End: 02-29-2024 Patient encounter procedure 02/29/2024 2:30 PM EST Routine [facility] [address] [place] [address] Slim Willard, [address] [place], [place] [id number] Arrived [facility] Comment on above: [...] EST Ancillary Procedure [facility] [address] [facility] [place] [address] [facility] Start: 12-23-2023 End: 12-23-2023 Patient encounter procedure [facility] Comment on above: Low-lying placenta Start: 12-23-2023 End: 12-22-2024 CBC panel - Blood by Automated count CBC Lab Routine Diabetes mellitus screening Expected: 12/23/2023 (Approximate), Expires: 12/22/2024 [facility] Comment on above: Expected: 12/23/2023 (Approximate), Expires: 12/22/2024 Start: 12-23-2023 End: 12-22-2024 Measurement of glucose 1 hour after glucose challenge for glucose tolerance test Glucose tolerance, 1 hour Lab Routine Diabetes mellitus screening Expected: 12/23/2023 (Approximate), Expires: 12/22/2024 [facility] Comment on above: Expected: 12/23/2023 (Approximate), Expires: 12/22/2024 Start: 12-23-2023 End: 12-22-2024 US for US OB PLACENTA W US OB TRANSVAGINAL Imaging Routine Low-lying placenta Expected: 12/23/2023 (Approximate), Expires: 12/22/2024 [facility] Work Phone: Comment on above: Expected: 12/23/2023 (Approximate), Expires: 12/22/2024 Start: 11-23-2023 End: 11-23-2023 Patient encounter procedure 11/23/2023 3:30 PM EDT Routine [facility] [address] [place] [phone] Tabatha Kay PA [address] [place], [place] [id number] [facility] Start: 11-16-2023 End: 11-16-2023 Professional / ancillary services management 11/16/2023 10:30 AM EDT Ancillary Procedure [facility] [address] [facility] [place] [place] [phone] [facility] Start: 10-26-2023 End: 11-25-2023 Alpha fetoprotein, maternal Alpha fetoprotein, maternal Lab Routine 17 weeks gestation of Expected: 10/26/2023 (Approximate), Expires: 11/25/2023 [facility] Comment on above: Expected: 10/26/2023 (Approximate), Expires: 11/25/2023 Start: 10-26-2023 End: 10-25-2024 US for US OB ANATOMY SINGLE W US OB CERVICAL LENGTH Imaging Routine Screening, , for anatomic survey Expected: 10/26/2023 (Approximate), Expires: 10/25/2024 [facility] Comment on above: Expected: 10/26/2023 (Approximate), Expires: 10/25/2024 Start: 10-26-2023 End: 10-26-2023 Patient encounter procedure 10/26/2023 9:20 AM EDT Routine [facility] [address] [place] [address] Slim Willard DO [address] [place] [address] Arrived [facility] Comment on above: Arrived Start: 10-18-2023 Influenza vaccination Influenza Vacc ine (#1) [facility] Healthcare CHLAMYDIA TRACHOMATI S (GENITO/STI) CHLAMYDIA TRACHOMATIS (GENITO/STI) Lab Routine Exposure to STD Ordered: 10/26/2023 [facility] Comment on above: Ordered: 10/26/2023 Cytology Cervical or vaginal smear or scraping study Pap Smear Pathology and Cytology Routine Well woman exam with routine gynecological exam Ordered: 10/26/2023 [facility] Work Phone: Comment on above: Ordered: 10/26/2023 Human papilloma viru s DNA [Presence] in Unspecified specimen by Probe with amplification HPV DNA probe, amplified Microbiology Routine Well woman exam with routine gynecological exam Ordered: 10/26/2023 [facility] Comment on above: Ordered: 10/26/2023 Neisseria gonorrhoea e DNA [Presence] in Unspecified specimen by DIPAK with probe detection Neisseria gonorrhea DNA probe, direct Lab Routine Exposure to STD Ordered: 10/26/2023 [facility] Comment on above: Ordered: 10/26/2023 SURESWAB(R) ADVANCED VAGINITIS PLUS, TMA SURESWAB(R) ADVANCED VAGINITIS PLUS, TMA Pathology and Cytology Routine Vaginal discharge Ordered: 10/26/2023 [facility] Comment on above: Ordered: 10/26/2023 Payers Date Payer Category Payer Private Health Insurance [employer] [id number] 2023 Unknown [employer] [id number] 2023-Present [address] [place] [address] [id number] 2023 Unknown [id number] 1990 Unknown [id number] [id number]. 2.593 1990 Unknown [id number] 2.840.1.391074.3.579. 2.1258 1990 Unknown [id number] 2.840.1.863418.3.579. 2.1258 1990 Unknown [id number] 2.16840.1.726527.3.579. 2.1258 1990 Unknown [id number] 2.840.1.023000.3.579. 2.1258 1992 Unknown [id number] 2.840.1.311334.3.579. 2.1258 1992 Unknown [id number] 2.16840.1.849036.3.579. 2.1258 1990 Unknown [id number] 2.16840.1.741708.3.579. 2.1258 1990 Unknown [id number] 2.16840.1.565874.3.579. 2.1258 1990 Unknown [id number] 2.16840.1.549821.3.579. 2.1258 1992 Unknown [id number] 2.16840.1.891661.3.579. 2.1259 1990 Unknown [id number] [id number]. 2.1259 1957 Self-pay [id number] Social History Date Type Detail Facility Start: 10-01-2023 Tobacco smoking stat [facility] Never smoked tobacco [facility] Start: 10-01-2023 Tobacco use and exposure Smoke less tobacco non-user [facility] Start: 10-26-2023 End: 03-22-2024 Alcoholic beverage intake Lifetime non-drinker (finding) [facility] Start: 10-01-2023 History of Social function [facility] Start: 10-01-2023 Tobacco use panel [facility] Start: 07-12-2023 [facility] Start: 1990 Sex assigned at Not on file [facility] Clinical Notes 10-26-2023 to 03-22-2024 RASHEED Rivera - 03/22/2024 8:50 AM RASHEED Suazo - 03/15/2024 8:50 AM RASHEED Suazo - 03/08/2024 10:50 AM Dana Montero MA - 02/29/2024 2:30 PM Umer Recinos LPN - 01/27/2024 3:00 PM EST Note Date & Type Note Facility 03-22-2024 History of Presen t illness Narrative Reason [...] weight on file to calculate BMI. BP: 112/68 Patient's last menstrual period was 06/28/2023. ASSESSMENT & PLAN ICD-10-CM 1. Third trimester Z34.93 2. 38 weeks gestation of Z3A.38 Return OB: Patient presents today for a routine obstetrics appointment. Patient is currently 38w2d . Patient states she is doing well but has complaints of being tired due to current . Patient has verbalizes frequent movement. labor precautions was discussed/given and patient was instructed to perform kick counts three times a day. No orders of the defined types were placed in this encounter. Follow Up: Patient is to return to office in 1 week for routine OB appointment. Documented by RASHEED Rivera on behalf of: RASHEED Rivera documented in this encounter [facility] 03-15-2024 History of Presen t illness Narrative Reason [...] weight on file to calculate BMI. BP: 122/70 Patient's last menstrual period was 06/28/2023. ASSESSMENT & PLAN ICD-10-CM 1. Third trimester Z34.93 POCT urinalysis dipstick manually resulted 2. 37 weeks gestation of Z3A.37 Return OB: Patient presents today for a routine obstetrics appointment. Patient is currently 37w2d . Patient states she is doing well [...] Documented by RASHEED Rivera on behalf of: Slim Willard DO documented in this encounter [facility] 03-08-2024 History of Presen t illness Narrative [...] nursing note reviewed. Exam conducted with a parts counter specialist present. Vitals: There is no height or [...] of: RASHEED Rivera documented in this encounter [facility] 02-29-2024 History of Presen t illness [...] nursing note reviewed. Exam conducted with a parts counter specialist present. Vitals: There is no height or [...] Slim Willard DO documented in this encounter [facility] 02-15-2024 History of Presen t illness [...] nursing note reviewed. Exam conducted with a parts counter specialist present. Vitals: There is no height or [...] of: RASHEED Rivera documented in this encounter [facility] 01-27-2024 History of Presen t illness [...] nursing note reviewed. Exam conducted with a parts counter specialist present. Vitals: There is no height or [...] Slim Willard DO documented in this encounter [facility] 01-13-2024 History of Presen t illness [...] of: RASHEED Rivera documented in this encounter [facility] 12-23-2023 History of Presen t illness [...] nursing note reviewed. Exam conducted with a parts counter specialist present. Vitals: There is no height or [...] Slim Willard DO documented in this encounter [facility] 11-23-2023 History of Presen t illness [...] Documented by Agatha Lemos on behalf of: RAHSEED Rivera documented in this encounter [facility] 10-26-2023 History of Presen t illness [...] nursing note reviewed. Exam conducted with a parts counter specialist present. Vitals: There is no height or [...] obtained without difficulty and patient was given [facility] order to have obtained. New OB: Patient [...] or undercooked meat, and stay away from [facility]. Patient has been consulted regarding any further [...] Slim Willard DO documented in this encounter [facility] Healthcare Evaluation note Diagnosis Second trimester state, [...] HealthcareEvaluation note* Diagnosis Third trimester state, incidental 37 weeks gestation of documented in this encounter [facility]* Diagnosis Third trimester state, incidental 38 weeks gestation of documented in this encounter [facility] Summary Purpose Family History No Family History Records FoundNo Family History Records Found Advance Directives No Advanced Directives Records FoundNo Advanced Directives Records Found Additional Source Comments INFORMATION SOURCE (unrecogn ized section and content) DATE CREATED AUTHOR 11/15/2018 [facility] DATE CREATED AUTHOR AUTHOR'S ORGANIZ ATION 03/24/2024 [facility] [employer] Care Teams (unrecognized sec tion and content) Pressure Controller Relationship Specialty Start Date End Date Burke Dennis MD [address] [place] [address] (Fax) PCP - RAMÍREZ Salazar [facility] 05/18/23 Pressure Controller Relationship Specialty Start Date End Date Burke Dennis MD [address] [place] [address] (Fax) PCP - RAMÍREZ Salazar [facility] 05/18/23 Reason for Visit (unrecogniz [...] BE BASED ON THE PRIMARY CLINICAL RECORDS. [facility] [employer] [facility]. provides no warranty or guarantee of the accuracy or completeness of information in this document.
[2024-03-28] MEDS: 0.9 % SODIUM CHLORIDE 1,000 ML 125 ML IV ×2 (06:26→12:25)
[2024-03-28] MEDS: OXYTOCIN/0.9 % SODIUM CHLORIDE 10 UNITS/500 ML PLAST..BAG 6 UNIT IV (06:27)
[2024-03-28 07:02] LABS: Amphetamine Screen Urine NEGATIVE (NEGATIVE); Barbiturates Screen Urine NEGATIVE (NEGATIVE); Benzodiazepines Screen Urine NEGATIVE (NEGATIVE); Buprenorphine Screen Urine NEGATIVE (NEGATIVE); Cannabinoid Screen Urine POSITIVE (NEGATIVE); Cocaine Screen Urine NEGATIVE (NEGATIVE); Methadone Screen Urine NEGATIVE (NEGATIVE); Methamphetamines Screen Urine NEGATIVE (NEGATIVE); Opiate Screen Urine NEGATIVE (NEGATIVE); Oxycodone Screen Urine NEGATIVE (NEGATIVE); Phencyclidine Screen Urine NEGATIVE (NEGATIVE); Tricyclic Antidepressant Urine NEGATIVE (NEGATIVE)
[2024-03-28 07:11] LABS: Hematocrit 34.2 % (36.0-48.0); Mean Corpuscular HGB Conc 35.1 g/dL (29.9-35.2); Mean Corpuscular Hemoglobin 31.7 pg (26.7-34.0); Mean Corpuscular Volume 90.5 fL (81.0-99.0); Mean Platelet Volume 9.2 fL (9.5-13.5); Platelet Count 229 10^3/uL (150-450); Red Blood Count 3.78 10^6/uL (4.20-5.40); Red Cell Distribution Width 13.5 % (11.0-15.0); White Blood Count 9.9 10^3/uL (4.0-11.0)
--- NOTE | 2024-03-28 10:08 | PM.OBHP ---
OB - H&P: HPI History of Present Illness Chief complaint: INDUCTION : 5 Para: 3 Gestational age based on last menstrual period: 39.1 weeks confirmed History of Present Dating criteria: LMP confirmed by 1st trimester US care: good care Ultrasounds: normal mid trimester US Medical complications OB: none Labs Blood type: A (+) positive Rubella: immune RPR/VDLR: nonreactive GBS status: negative HBsAG: negative Review of Systems ROS desires epidural when needed Status of ROS: 10 or more systems reviewed and unremarkable except as noted in history and below PFSH PFSH Social History Little interest or pleasure in doing things: not at all Feeling down, depressed, or hopeless: not at all Meds Home Medications and Allergies Home Medications ?Medication ?Instructions ?Recorded ?Confirmed ?Type cefdinir 300 mg capsule 300 mg PO BID 10 days #20 caps 08/31/23 Rx ondansetron 4 mg disintegrating 4 mg PO Q6H PRN nausea and 08/31/23 Rx tablet vomiting #12 tabs Allergies Allergy/AdvReac Type Severity Reaction Status Date / Time No Known Drug Allergies Allergy Verified 03/28/24 06:45 Exam Constitutional Vital Signs, click to edit/add: Last Vital Signs Pulse 65 03/28/24 10:01 BP 92/53 03/28/24 10:01 Common normals: no apparent distress, average body habitus, oriented x3, no limitations, healthy appearing, alert and well nourished [facility] Common normals: normocephalic and head/scalp atraumatic Eye Common normals: PERRL Pupil: accommodation reflex normal Neck & C-Spine Common normals: full ROM and supple Respiratory Common normals: normal respiratory effort Auscultation: clear to auscultation bilaterally Cardio Common normals: regular rate and regular rhythm GI Common normals: Normal to inspection, nondistended, normoactive bowel sounds present, soft to palpation and non-tender Common normals: no CVA tenderness and appearance of the vagina normal Back & Pelvis Common normals: no thoracic nor lumbar tenderness Extremity Common normals: normal to inspection, full ROM and no calf tenderness Neuro Common normals: CN's II-XII intact bilaterally, moves all extremities, no focal motor deficits and no sensory deficits noted Motor exam: strength 5/5 throughout Psych Common normals: mental status grossly normal, thought process normal, cooperative, affect normal, speech normal and activity/motor behavior normal Appearance: well kempt Results Labs Labs: Short CBC 03/28/24 Range/Units 07:03 WBC 9.9 (4.0-11.0) 10^3/uL Hgb 12.0 (12.0-16.0) g/dL Hct 34.2 L (36.0-48.0) % Plt Count 229 (150-450) 10^3/uL OB - A/P Assessment and Plan (1) : Assessment and Plan: multip, elective induction, medical chart reviewed, does desire epidural when needed, no maternal or obstetrical concerns at this point, CAT I tracing Qualifiers: Weeks of gestation: 39 weeks Qualified Code(s): Z3A.39 - 39 weeks gestation of Plan on pitocin 12 miu and regularly sujit, AROM done: clear fluid, (GBS neg), cervix: 2cm/50%/- 3/vertex, head applied anticiptate normal vaginal delivery
[2024-03-28] MEDS: NALBUPHINE HCL 10 MG/ML AMPULE IV (11:07)
[2024-03-28] MEDS: 0.9 % SODIUM CHLORIDE 1,000 ML 1000 ML IV (11:23)
[2024-03-28] MEDS: ROPIVACAINE HCL/PF 400 MG/200 ML PREMIX 6 MG EPIDURAL (12:46)
[2024-03-28] MEDS: LIDOCAINE VISCOUS 2% 15 ML SOLUTION 5 ML TOPICAL (15:40)
[2024-03-28] MEDS: OXYTOCIN/0.9 % SODIUM CHLORIDE 20 UNITS/1,000 ML PLAST..BAG 125 UNIT IV (16:02)
--- NOTE | 2024-03-28 16:07 | PM.OBPRCVD ---
Procedure Intrapartal events: None Induction method: per pitocin protocol Delivery augmentation: rupture of membranes and pitocin Delivery monitor: external FHT and external uterine Route of delivery: L&D Laceration Description: none Estimated blood loss (mL): 250 Anesthesia type: Epidural Disposition: PACU Delivery date: 03/28/24 Gender: male presentation: vertex Placental delivery description: Spontaneous cord description: 3 Vessels
[2024-03-28] MEDS: IBUPROFEN 600 MG TABLET PO ×2 (17:13→22:57)
[2024-03-29 07:34] VITALS: BP 103/56; PULSE 65
[2024-03-29 07:34] LABS: Basophils Percent Auto 0.3 % (0.2-2.0); Eosinophils Absolute Auto 0.1 10^3/uL (0.0-0.7); Eosinophils Percent Auto 0.3 % (0.9-7.0); Hematocrit 33.4 % (36.0-48.0); Hemoglobin 11.2 g/dL (12.0-16.0); Immature Granulocytes Abs Auto 0.06 10^3/uL (0.00-0.03); Immature Granulocytes Pct Auto 0.4 % (0.0-0.5); Lymphocytes Absolute Auto 1.7 10^3/uL (1.2-3.8); Lymphocytes Percent Auto 10.9 % (20.5-60.0); Mean Corpuscular HGB Conc 33.5 g/dL (29.9-35.2); Mean Corpuscular Hemoglobin 30.8 pg (26.7-34.0); Mean Corpuscular Volume 91.8 fL (81.0-99.0); Mean Platelet Volume 9.5 fL (9.5-13.5); Monocytes Absolute Auto 0.7 10^3/uL (0.3-0.8); Monocytes Percent Auto 4.7 % (1.7-12.0); Neutrophils Absolute Auto 12.9 10^3/uL (1.4-6.5); Neutrophils Percent Auto 83.4 % (43.0-75.0); Platelet Count 206 10^3/uL (150-450); Red Blood Count 3.64 10^6/uL (4.20-5.40); Red Cell Distribution Width 13.7 % (11.0-15.0); White Blood Count 15.4 10^3/uL (4.0-11.0)
[2024-03-29 07:35] VITALS: TEMP 36.7
[2024-03-29] MEDS: IBUPROFEN 600 MG TABLET PO ×3 (08:03→23:28)
[2024-03-29] MEDS: DOCUSATE SODIUM 100 MG CAPSULE PO ×2 (08:03→23:28)
--- NOTE | 2024-03-29 08:40 | P.OBPN_ITS ---
OB - PN: Subj Subjective Patient comments: no complaints [place] status: doing well [place] feeding status: exclusively Exam Constitutional Vital Signs, click to edit/add: Last Vital Signs Temp 98.1 F 03/29/24 07:35 Pulse 65 03/29/24 07:34 Resp 16 03/29/24 07:35 BP 103/56 03/29/24 07:34 O2 Del Method Room Air 03/29/24 07:37 Documenting provider has reviewed patient's vital signs: yes Common normals: no apparent distress General appearance: cooperative HENMT Common normals: normocephalic Eye Common normals: EOMs intact bilaterally Lymph Lymphatic: no lymphadenopathy noted Chest Common normals: inspection of chest normal Respiratory Common normals: normal respiratory effort, no retractions, no use of accessory muscles, clear to auscultation bilaterally and percussion normal Effort & inspection: able to speak in complete sentences Cardio Common normals: regular rate and regular rhythm Rate: regular rate Rhythm: regular rhythm GI Common normals: Normal to inspection, nondistended, normoactive bowel sounds present Common normals: no CVA tenderness Back & Pelvis Common normals: no CVA tenderness Extremity Common normals: normal to inspection and full ROM Neuro Common normals: oriented x3 Sensorium/orientation: awake, alert, oriented to person, oriented to place and oriented to time Psych Psychiatry clinicians, please identify where your Mental Status Exam is documented: Mental Status Exam documented in the separate MSE Common normals: mental status grossly normal, thought process normal, cooperative, affect normal, speech normal, activity/motor behavior normal, denies hallucinations, denies homicidal ideation and denies suicidal ideation Attitude: calm Results Labs Labs: Short CBC 03/29/24 Range/Units 06:31 WBC 15.4 H (4.0-11.0) 10^3/uL Hgb 11.2 L (12.0-16.0) g/dL Hct 33.4 L (36.0-48.0) % Plt Count 206 (150-450) 10^3/uL OB - PN: A/P Assessment and Plan (1) : Qualifiers: Weeks of gestation: 39 weeks Qualified Code(s): Z3A.39 - 39 weeks gestation of Plan - Vaginal Delivery day: 1 Plan: routine care Time Spent with Patient Time: Total time spent is greater than 50% in coordination of care (as documented) at patient's floor/unit and/or counseling patient: Total time spent with greater than 50% in coordination of care (as documented) at patient's floor/unit and/or counseling patient: less than 15 minutes
[2024-03-29 14:42] VITALS: BP 120/67; PULSE 68
[2024-03-29 14:44] VITALS: TEMP 36.4
--- NOTE | 2024-03-29 15:27 | SWNOTE1 ---
SW consulted due to positive THC drug screen on admission. SW spoke to nurse and pt doing well, appropriate with baby. SW met with pt and father of baby to complete assessment. Pt has 3 other kids in the home, 3 girls who are 14,12, and 7. Father of baby also has a son who is there every other weekend. They do have everything they need for baby at home. They do have good support at home as well. Pt does admit to using Marijuana here and there during to assist with sleeping and her nausea. Pt does not plan on continuing once home. Pt does not have her medical marijuana card. Pt is . 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 They voiced understanding. No further questions at this time. SW made referral to [facility] CPS. HIPAA form filled out and sent to Linda Reynolds.
[2024-03-29 23:27] VITALS: BP 106/61; PULSE 57; TEMP 36.7
[2024-03-30] MEDS: IBUPROFEN 600 MG TABLET PO (06:17)
--- NOTE | 2024-03-30 08:09 | PM.OBPN ---
OB - PN: Subj Subjective Patient comments: no complaints and pain well controlled [place] status: doing well Exam Constitutional Vital Signs, click to edit/add: Last Vital Signs Temp 98.1 F 03/29/24 23:27 Pulse 57 L 03/29/24 23:27 Resp 16 03/29/24 14:44 BP 106/61 03/29/24 23:27 O2 Del Method Room Air 03/29/24 23:30 Documenting provider has reviewed patient's vital signs: yes Common normals: no apparent distress Respiratory Common normals: normal respiratory effort and clear to auscultation bilaterally Cardio Common normals: regular rate and regular rhythm GI Common normals: Normal to inspection, nondistended, normoactive bowel sounds present Extremity Common normals: no clubbing, cyanosis or edema and no calf tenderness OB - PN: A/P Assessment and Plan (1) : Qualifiers: Weeks of gestation: 39 weeks Qualified Code(s): Z3A.39 - 39 weeks gestation of Plan - Vaginal Delivery day: 2 Plan: routine care Time Spent with Patient Time: Total time spent is greater than 50% in coordination of care (as documented) at patient's floor/unit and/or counseling patient: Total time spent with greater than 50% in coordination of care (as documented) at patient's floor/unit and/or counseling patient: less than 15 minutes
[2024-03-30 09:01] VITALS: BP 122/60; PULSE 69
[2024-03-30 09:40] VITALS: BP 122/60; PULSE 69; TEMP 36.7
[2024-03-30 16:09] VITALS: PULSE 69
--- NOTE | 2024-03-30 16:13 | PC.NURSE ---
0840 VSS and assessment WNL. Pt offers no complaints at this time. States I gave him some formula because I am not sure if I have milk . Has been several years since last baby, and can't remember details. Reviewed breast feeding and milk supply maintenance. Aware to feed baby on demand, every 1-3 hours and to use both breasts per feed. Aware that frequent nursing will assist milk coming in. Aware of need for baby to have cardiac echo today once discharged. Aware to go to [facility] once appointment scheduled.
[2024-03-31 00:08] LABS: Cannabinoid Positive (.); Carboxy THC Conf, MS, UR 380 ng/mL (Cutoff=10)
== END 2024-03-30 12:15 | disposition home or self-care (01) | DRG 807 ==
PROVIDERS: Admitting Provider Obstetrics & Gynecology; Visit Provider Obstetrics & Gynecology
DX: O99.324 Drug use complicating childbirth (principal); Z37.0 Single live birth; F12.90 Cannabis use, unspecified, uncomplicated; Z3A.39 39 weeks gestation of pregnancy
CPT/HCPCS: 36415; 51702; 59050; 59410; 80307; 80349; 85025; 85027; 86850; 86900; 86901; J2300; J2795